=== PATIENT | female | born 1980 | race African-American/Black ===

== ENCOUNTER 2017-03-02 18:41 | Emergency (ER) | payer MEDICAID, SELFPAY ==
[2017-03-02 19:21] LABS: Bilirubin Negative (Negative); Blood, Urine Negative (Negative); Glucose, Urine (Dipstick) Negative (Negative); Ketone, Urine Trace mg/dL (Negative); Nitrite Negative (Negative); Protein, Urine (Dipstick) Trace mg/dL (Neg-Trace); Urobilinogen 0.2 mg/dL (0.2-1.0)
[2017-03-02 19:27] LABS: #Basophils 0.1 thou/uL (0.0-0.2); #Lymphocytes 0.6 thou/uL (1.20-3.40); #Monocytes 0.3 thou/uL (0.11-0.59); #Neutrophils 2.5 thou/uL (1.40-6.50); %Basophils 1.7 % (0.0-1.0); %Eosinophils 0.3 % (0.0-10.0); %Lymphocytes 18.4 % (21.0-51.0); %Monocytes 7.7 % (0.0-10.0); Hematocrit 31.4 % (36.0-47.0); Mean Platelet Volume 6.8 fL (7.4-10.4); Red Blood Cell (RBC) Count 3.51 mill/uL (4.20-5.40); White Blood Cell (WBC) Count 3.5 thou/uL (4.8-10.8)
[2017-03-02 19:53] LABS: ALT (SGPT) 19 U/L (8-55); AST (SGOT) 22 U/L (5-34); Alkaline Phosphatase 85 U/L (40-150); Anion Gap 11 mmol/L (10-20); BUN (Urea Nitrogen) 10 mg/dL (7.0-18.7); Bilirubin, Total Less than 0.2 mg/dL (0.2-1.2); Calc. Creatinine Clearance 0 mL/min (70-130); Calcium 9.7 mg/dL (7.8-10.44); Carbon Dioxide 25 mmol/L (22-29); Chloride 108 mmol/L (98-107); Estimated GFR-MDRD Greater than 90; Globulin 4.6 g/dL (2.4-3.5); Lipase 51 U/L (8-78); Protein, Total 8.6 g/dL (6.0-8.3)
== END 2017-03-02 23:06 | disposition home or self-care (01) ==
LOC: ERS 18:41
DX: R19.7 Diarrhea, unspecified (principal); B20 Human immunodeficiency virus [HIV] disease; E10.9 Type 1 diabetes mellitus without complications; J45.909 Unspecified asthma, uncomplicated; F32.9 Major depressive disorder, single episode, unspecified; F17.210 Nicotine dependence, cigarettes, uncomplicated; Z79.899 Other long term (current) drug therapy
CPT/HCPCS: 36415; 36416; 80053; 81003; 81025; 83690; 85025; 99284

== ENCOUNTER 2017-07-17 21:04 | Emergency (ER) | payer MEDICAID, OTHER ==
[2017-07-17 22:33] LABS: #Eosinphils 0.1 thou/uL (0.0-0.7); #Monocytes 0.5 thou/uL (0.11-0.59); #Neutrophils 5.5 thou/uL (1.40-6.50); %Basophils 0.4 % (0.0-1.0); %Eosinophils 1.1 % (0.0-10.0); %Lymphocytes 14.2 % (21.0-51.0); %Monocytes 6.5 % (0.0-10.0); %Neutrophils 77.8 % (42.0-75.0); Hemoglobin 12.4 g/dL (12.0-16.0); Mean Corpuscular HGB CONC 33.5 g/dL (32.0-36.0); Mean Corpuscular Hemoglobin 28.1 pg (27.0-31.0); Mean Platelet Volume 7.3 fL (7.4-10.4); Platelet Count 328 thou/uL (130-400); RBC Distribution Width 14.4 % (11.5-14.5); White Blood Cell (WBC) Count 7.1 thou/uL (4.8-10.8)
[2017-07-17 22:55] LABS: ALT (SGPT) 21 U/L (8-55); AST (SGOT) 23 U/L (5-34); Albumin 4.2 g/dL (3.5-5.0); Alkaline Phosphatase 100 U/L (40-150); Anion Gap 14 mmol/L (10-20); BUN (Urea Nitrogen) 26 mg/dL (7.0-18.7); Bilirubin, Total 0.2 mg/dL (0.2-1.2); Calc. Creatinine Clearance 0 mL/min (70-130); Calcium 9.8 mg/dL (7.8-10.44); Carbon Dioxide 26 mmol/L (22-29); Chloride 92 mmol/L (98-107); Estimated GFR-MDRD 55; Globulin 5.1 g/dL (2.4-3.5); Glucose 432 mg/dL (70-105); Magnesium 2.2 mg/dL (1.6-2.6); Phosphorus 4.1 mg/dL (2.3-4.7); Potassium 3.8 mmol/L (3.5-5.1); Protein, Total 9.3 g/dL (6.0-8.3); Sodium 128 mmol/L (136-145)
[2017-07-17] MEDS ORDERED: Insulin Regular 300 UNITS/3 ML VIAL ONE (23:03)
[2017-07-18] MEDS ORDERED: Acetaminophen 500 MG TAB ONE (01:09)
[2017-07-20 09:10] LABS: Base Excess-Venous 3.3 mmol/L (-30.0-30.0); Bicarbonate (HCO3v) 27.4 mmol/L (1.0-85.0); CO2 Tension (PvCO2) 39.3 mmHg (41.0-51.0); Hemoglobin - Calc 15.4 g/dL (12.0-18.0); O2 Tension (PvO2) 28.6 mmHg (35.0-45.0); Potassium 3.7 mmol/L (3.4-4.7); pH (Venous) 7.452 (7.35-7.45); vO2 Saturation-calc 57.6 % (0.0-100.0)
[2017-07-20 09:11] LABS: Calcium, Ionized 1.02 mmol/L (1.12-1.32); T. Carbon Dioxide 28.6 mmol/L (1.0-85.0)
[2017-07-20 09:12] LABS: Lactate 1.86 mmol/L (0.50-2.20)
== END 2017-07-18 01:25 | disposition home or self-care (01) ==
LOC: ERS 21:04
DX: E10.65 Type 1 diabetes mellitus with hyperglycemia (principal); E86.0 Dehydration; B20 Human immunodeficiency virus [HIV] disease; J45.909 Unspecified asthma, uncomplicated; F32.9 Major depressive disorder, single episode, unspecified; F17.210 Nicotine dependence, cigarettes, uncomplicated; Z79.899 Other long term (current) drug therapy; Z71.6 Tobacco abuse counseling
CPT/HCPCS: 36415; 36416; 80053; 82010; 82330; 82435; 82803; 83605; 83735; 84100; 84132; 84295; 85014; 85025; 96361; 96374; 96376; 99406; J1815

== ENCOUNTER 2018-04-23 11:14 | Emergency (ER) | payer OTHER ==
[2018-04-23] MEDS ORDERED: Clindamycin/D5W 900 mg/50 ml Premix Bag ONE (12:05)
[2018-04-23] MEDS ORDERED: Ondansetron PF 4 MG/2 ML Vial ONE (12:14)
[2018-04-23] MEDS ORDERED: Morphine 2 MG/ML SYRINGE ONE (12:14)
== END 2018-04-23 15:07 | disposition home or self-care (01) ==
LOC: ERS 11:14
DX: L02.31 Cutaneous abscess of buttock (principal); F32.9 Major depressive disorder, single episode, unspecified; E10.9 Type 1 diabetes mellitus without complications; B20 Human immunodeficiency virus [HIV] disease; F17.210 Nicotine dependence, cigarettes, uncomplicated
CPT/HCPCS: 87070; 87077; 87186; 87205; 96361; 96365; 96375; J2270; J2405; J3490

== ENCOUNTER 2018-04-25 22:31 | Inpatient (IN) | payer OTHER ==
[~2018-04-25 22:31] MED LIST: Iopamidol 370 76% 100 ML VIAL ONE
[2018-04-25 23:24] LABS: Base Excess-Venous -1.2 mmol/L (0 (+/- 2.5)); Bicarbonate (HCO3v) 23.9 mmol/L (22.0-29.0); CO2 Tension (PvCO2) 40.7 mmHg (41.0-51.0); Calcium, Ionized 1.43 mmol/L (1.12-1.32); O2 Tension (PvO2) 45.1 mmHg (35.0-45.0); Potassium 3.7 mmol/L (3.4-4.7); T. Carbon Dioxide 25.1 mmol/L (1.0-85.0); pH (Venous) 7.377 (7.35-7.45); vO2 Saturation-calc 79.8 % (94-98)
[2018-04-25 23:26] LABS: Hemoglobin 9.9 g/dL (12.0-16.0); Mean Corpuscular HGB CONC 32.7 g/dL (32.0-36.0); Mean Corpuscular Hemoglobin 27.9 pg (27.0-31.0); Mean Corpuscular Volume 85.4 fL (78.0-98.0); Mean Platelet Volume 7.5 fL (7.4-10.4); Platelet Count 459 thou/uL (130-400); Red Blood Cell (RBC) Count 3.56 mill/uL (4.20-5.40); White Blood Cell (WBC) Count 17.4 thou/uL (4.8-10.8)
--- NOTE | 2018-04-25 23:41 | RAD ---
PORTABLE AP CHEST X-RAY: 04/25/2018 HISTORY: Altered mental status. COMPARISON: 02/02/2016 FINDINGS: The cardiac silhouette and pulmonary vasculature are within normal limits. The lungs remain clear. There has been no interval change when compared to the prior exam. IMPRESSION: No acute cardiopulmonary process. POS: [facility]
[2018-04-25 23:43] LABS: ALT (SGPT) 18 U/L (8-55); AST (SGOT) 15 U/L (5-34); Albumin 2.8 g/dL (3.5-5.0); Alkaline Phosphatase 266 U/L (40-150); Anion Gap 15 mmol/L (10-20); BUN (Urea Nitrogen) 58 mg/dL (7.0-18.7); Bilirubin, Total 0.4 mg/dL (0.2-1.2); Calc. Creatinine Clearance 0 mL/min (70-130); Calcium 11.8 mg/dL (7.8-10.44); Carbon Dioxide 21 mmol/L (22-29); Chloride 91 mmol/L (98-107); Estimated GFR-MDRD 28; Globulin 5.2 g/dL (2.4-3.5); Glucose 473 mg/dL (70-105); Magnesium 3.3 mg/dL (1.6-2.6); Phosphorus 3.5 mg/dL (2.3-4.7); Potassium 3.7 mmol/L (3.5-5.1); Sodium 123 mmol/L (136-145)
[2018-04-26 00:05] LABS: Band 31 % (5-11); MDiff Complete? YES; Metamyelocyte 3 % (0-0); Monocytes 3 % (0-10); Myelocyte 1 % (0-0); Neutrophil 62 % (42-75); PLT Morphology Comment Appears Increased; Target Cells SLIGHT = 2-5 cells (100X) (0-1/hpf)
--- NOTE | 2018-04-26 00:05 | CT ---
CT ABDOMEN AND PELVIS WITH IV CONTRAST: 04/25/2018 HISTORY: Immunocompromised. Altered mental status. Abscess, left gluteal region. COMPARISON: None available. FINDINGS: There is mild atelectasis in the right middle lobe. The lung bases are otherwise clear. Calcifications are seen in the gallbladder, related to cholelithiasis. There is mild bilateral hydronephrosis, which may be attributable to the prominent distention of the urinary bladder. The kidneys otherwise have a normal CT appearance. The liver, spleen, pancreas, bilateral adrenal glands, and abdominal aorta, as well as the uterus, de monstrate a normal CT appearance. There is a 3.1 cm hypodense structure seen in the right adnexal region, which may represent a right o varian cyst. This does demonstrate fluid attenuation. There are mildly prominent and a mild increase in number of inguinal lymph nodes bilaterally, which a re probably reactive in origin. There is subcutaneous emphysema in the medial aspect of the gluteal regions bilaterally, with subcuta neous gas extending to the dorsal aspect of the lower sacrum. The subcutaneous emphysema is adjacent to the gluteal cleft. There is inflammatory stranding and subcutaneous edema present within the med ial gluteal subcutaneous adipose tissue. No definable fluid collection is seen. There is an ill-def ined low density area seen in the right perineal region but, again, no definable fluid collection is seen. No definite osseous destruction is seen in the region of the sacrum. IMPRESSION: 1. Subcutaneous gas in the medial gluteal region, which abuts the dorsal aspect of the lower sacrum. Findings may be related to a gas-forming organism and an infectious process. There is no definable fluid collection seen. There is subcutaneous inflammatory stranding in the adipose layer of each me dial gluteal region, in the region of the subcutaneous gas. 2. Mild bilateral hydronephrosis, which may be attributable to prominent distention of the urinary b ladder. 3. Probable right ovarian cyst. 4. Irregular gas density in the lower pelvis, which is in the region of the rectum and is probably r elated to gas within the rectum, although this cannot be definitely evaluated due to the lack of fat in this region, as well as adjacent structures limiting evaluation. No gastrointestinal contrast is present for further evaluation. 5. Cholelithiasis. 6. No CT evidence of appendicitis. POS: [facility]
[2018-04-26] MEDS ORDERED: Naloxone HCl 2 mg/2 ml Syringe ONE (00:06)
[2018-04-26] MEDS ORDERED: Piperacillin/Tazobactam 4.5 GM VIAL ONE (00:13)
[2018-04-26] MEDS ORDERED: VANCOMYCIN/ RENALLY ADJUST ANTIBIOTICS IVPB PRN (00:27)
[2018-04-26 00:29] LABS: Bilirubin Negative (Negative); Blood, Urine Trace (Negative); Clarity CLOUDY (Clear); Glucose, Urine (Dipstick) >=1000 mg/dL (Negative); Leukocyte Negative (Negative); Nitrite Negative (Negative); Protein, Urine (Dipstick) 30 mg/dL (Neg-Trace); Urobilinogen 0.2 mg/dL (0.2-1.0); pH, Urine 5.5 (5.0-9.0)
[2018-04-26 00:32] LABS: Bacteria/HPF None Seen HPF (None Seen); Pathc Cast-AUWi Flag 2.03 (0-2.49); RBC/HPF 0-3 HPF (0-3); Squamous Epithelial 0-3 HPF (0-3); WBC/HPF 0-3 HPF (0-3)
[2018-04-26 00:33] LABS: Yeast-AUWi Flag 106.2 (0-25.0)
[2018-04-26] MEDS ORDERED: Dextrose 5% in Water 1,000 ML IV PRN (00:34)
[2018-04-26] MEDS ORDERED: Insulin Regular 300 UNITS/3 ML VIAL SC PRN ×2 (00:34)
[2018-04-26] MEDS ORDERED: Acetaminophen/Codeine 30-300mg Tablet PO PRN (00:35)
[2018-04-26 00:42] LABS: Hyaline Casts/LPF 0-3 HYALINE CAST LPF (0-3 Hyaline); Yeast-All Forms None Seen HPF (None Seen)
[2018-04-26 00:43] LABS: Crystals/HPF 2+ AMORPH URATES HPF (Negative)
[2018-04-26] MEDS ORDERED: Insulin Glargine 10 UNITS in Pre-Filled Syringe 1 EACH SC SCH (00:45)
[2018-04-26] MEDS: Sodium Chloride 0.9% 1,000 ML IV SCH ×4 (02:11→21:21)
[2018-04-26] MEDS ORDERED: Prevnar 13-Val Conj/PF 0.5 ML SYRINGE IM ONE (04:00)
[2018-04-26] MEDS: Piperacillin/Tazobactam 2.25 GM in Sodium Chloride 0.9% 100 ML IVPB SCH ×3 (06:12→17:37)
[2018-04-26 07:37] LABS: Hemoglobin 9.1 g/dL (12.0-16.0); Mean Corpuscular HGB CONC 32.4 g/dL (32.0-36.0); Mean Corpuscular Hemoglobin 27.3 pg (27.0-31.0); Mean Corpuscular Volume 84.1 fL (78.0-98.0); Mean Platelet Volume 7.1 fL (7.4-10.4); Platelet Count 388 thou/uL (130-400); RBC Distribution Width 13.8 % (11.5-14.5); Red Blood Cell (RBC) Count 3.33 mill/uL (4.20-5.40); White Blood Cell (WBC) Count 17.4 thou/uL (4.8-10.8)
[2018-04-26 07:45] LABS: Anion Gap 13 mmol/L (10-20); BUN (Urea Nitrogen) 49 mg/dL (7.0-18.7); Calc. Creatinine Clearance 46 mL/min (70-130); Calcium 10.1 mg/dL (7.8-10.44); Carbon Dioxide 17 mmol/L (22-29); Chloride 105 mmol/L (98-107); Estimated GFR-MDRD 51; Glucose 210 mg/dL (70-105); Potassium 3.2 mmol/L (3.5-5.1); Sodium 132 mmol/L (136-145)
[2018-04-26 08:13] LABS: Band 43 % (5-11); Hypochromia SLIGHT = 6-15 cells (100X) (0-5/hpf); Lymphocytes 2 % (21-51); MDiff Complete? YES; Monocytes 9 % (0-10); Myelocyte 1 % (0-0); Neutrophil 45 % (42-75); PLT Morphology Comment Appears Adequate; Polychromasia SLIGHT = 2-3 cells (100X) (0-2/hpf); Target Cells MODERATE= 6-15 cells (100X) (0-1/hpf)
--- NOTE | 2018-04-26 09:40 | HP ---
HISTORY OF PRESENT ILLNESS: Cortney Baez is a 37-year-old black female, HIV positive, followed by Dr. Ocampo in the emergency room two days ago, started on antibiotics for perirectal abscess. She returned to the emergency room early this morning. I was called noting that she had extensive perirectal abscess with gas noted on CAT scan. The patient is admitted to the hospital. When I see her this morning, she has a necrotizing fasciitis perianal. Plan is to emergently drain this in the operating room under anesthesia. The patient has been unable to walk for the last few days because of this process. OBJECTIVE: VITAL SIGNS: 98.6 degrees, 85, 97/58. Sodium 123, potassium 3.7, chloride 91, creatinine 2.33, BUN 58, GFR 48, glucose 473. ALLERGIES: SULFA. SOCIAL HISTORY: Tobacco, less than half a pack a day. Alcohol, socially. MEDICATIONS: 1. Emtricitabine daily. 2. Darunavir daily. 3. Atovaquone b.i.d. 5 mL. 4. Levemir insulin 12 units daily. 5. Insulin regular t.i.d. 6. Prozac 20 mg a day. PAST SURGICAL HISTORY: Noncontributory. PAST MEDICAL HISTORY: HIV, asthma, and tobacco abuse. REVIEW OF SYSTEMS: Noncontributory. PHYSICAL EXAMINATION: VITAL SIGNS: 5 foot, 118 pounds, 22 BMI, temperature 98.6 degrees, pulse 85, blood pressure 97/58. LUNGS: Clear to auscultation. CARDIAC: Regular rate and rhythm without murmur or gallop. ABDOMEN: Soft and nontender. Right perirectal area reveals necrotic skin, blistering, abscess, fluctuance, and extreme tenderness. She can barely move. EXTREMITIES: Unremarkable. ASSESSMENT AND PLAN: 1. Perirectal abscess with advanced infection. Plan, emergent operative intervention. Continue Zosyn and vancomycin. Infectious Disease consult. Expect possible postoperative ICU stay. 2. Acute kidney injury secondary to infectious process. Job ID: [id number]
[2018-04-26] MEDS ORDERED: Bacitracin Zinc Ointment 30 gm TUBE ONE (09:44)
[2018-04-26] MEDS ORDERED: Sodium Chloride 0.9% 20 ML ONE (10:41)
[2018-04-26] MEDS ORDERED: Ondansetron HCl/PF 4 MG/2 ML Vial IVP PRN (11:07)
[2018-04-26] MEDS ORDERED: traMADol HCl 50 MG TAB PO PRN (11:34)
[2018-04-26] MEDS ORDERED: Acetaminophen 500 MG TAB PO PRN (11:34)
[2018-04-26] MEDS ORDERED: Fentanyl 100 MCG/2 ML VIAL ONE (11:38)
--- NOTE | 2018-04-26 13:17 | HP ---
CHIEF COMPLAINT: Perirectal pain, some altered mental status. HISTORY: This patient is a 37-year-old female accompanied by her mother, who presented via the emergency department. This patient has a history of HIV infection, diabetes, and asthma. She says she is essentially between doctors caring for her diabetes and she was referred to a specialist, but has not found one yet. She also reports her asthma has not been fully well controlled of late, yet she continues to smoke more than half a pack of cigarettes a day. The patient apparently shaved her perineal area and subsequently a week ago started developing some pain in the perirectal area. This has progressed to the point that she has developed severe pain, more chills, and profound weakness to the point that she was actually having some falls and when the patient's family noted some changes in her general mental status, they brought her to the emergency department. REVIEW OF SYSTEMS: She has had a very poor appetite for the last several days. Her mother reports they have been essentially trying to get her to eat something just so she can take her meals. She also thought she was voiding well, but apparently had some urinary retention, relieved by Bass catheter placed in the emergency department. All other systems were reviewed and all pertinent positives and negatives noted in the HPI. PAST MEDICAL HISTORY: Notable for HIV infection. 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 She reports she was treated by Dr. Ocampo. She has asthma, for which she has had an inhaler in the past, but states she has been out of them. She has diabetes, which has been poorly controlled. She also reports that she had endoscopy at one point in the past, which revealed some form of upper GI ulcers. PAST SURGICAL HISTORY: None. FAMILY HISTORY: The patient reported some cancer in her grandmother, hypertension in her mother. She is unsure of her father's situation. SOCIAL HISTORY: The patient is unmarried. She denies drug use. She drinks occasionally on weekends. She smokes over half a pack of cigarettes per day. She is full code and her mother is her surrogate decision maker. ALLERGIES: SULFAMETHOXAZOLE TRIMETHOPRIM. HOME MEDICATIONS: 1. Descovy 200-25 one p.o. daily. 2. Prezcobix 800-150 one p.o. daily. 3. Atovaquone po b.i.d. 4. Levemir FlexPen 12 units subcu daily. 5. Regular insulin 2 units subcu t.i.d. with meals. 6. Prozac 20 mg daily. 7. Stribild one p.o. q.a.m. PHYSICAL EXAMINATION: VITAL SIGNS: Currently, temperature is 98.6, pulse 85, respirations 18, O2 saturation 98% on room air, and blood pressure is 97/58. GENERAL APPEARANCE: Age-appropriate female. She appears to be very thin with some muscle wasting in the temporalis and facial muscles. HEENT: PERRL. No OP lesions. NECK: Supple and symmetric. HEART: Regular rate and rhythm without murmurs, gallops, or rubs. LUNGS: Clear to auscultation bilaterally without significant wheezes or rales present. ABDOMEN: Soft, nontender, and nondistended. EXTREMITIES: Warm and dry with no edema. Fabienne area reveals a large area of induration and extreme tenderness and inflammation over the perirectal cleft, primarily on right buttock area. There is an extremely foul smelling odor emanating from drainage from an area on the right buttock area with significant desquamation of surrounding skin. LABORATORY DATA: Initially white count 17.4, hemoglobin 9.9, platelets 459, she had a 62 neutrophils, 31 bands, 3 monocytes, 3 metamyelocytes, 1 myelocyte. VBG; pH 7.37. Chemistry; sodium is 123, potassium 3.7, chloride 91, CO2 of 21, BUN 58, creatinine is 2.33, glucose 478, calcium was 11.8, lactic acid 1.8, magnesium 3.3, alkaline phosphatase 266. Urinalysis shows significant glucose, trace ketones. Beta-hydroxybutyrate was elevated at 0.84. IMAGING STUDIES: Chest x-ray, clear. CT abdomen and pelvis showed subcutaneous gas in the medial gluteal region, which abuts the dorsal aspect of the lower sacrum. No definable fluid collection, but stranding throughout the gluteal region. There was mild bilateral hydronephrosis with distended bladder. There is irregular gas density in the lower pelvis in the region of the rectum, probably related to gas within the rectum, cholelithiasis as well. IMPRESSION AND PLAN: 1. Large abscess with possible necrotizing fasciitis of the buttock area, likely started from shaving and some folliculitis in the patient with poorly-controlled diabetes and underlying human immunodeficiency virus. The patient appears to be mounting a reasonably good immune response. She is on vancomycin and Zosyn. Surgery has been consulted and will be taking the patient to the operating room soon for debridement of this area. The patient will likely go to [facility] following this procedure. We will consult ID to follow along as well. 2. Pseudohyponatremia. 3. Severely uncontrolled diabetes. The patient's blood sugars have been treated and are improving, the most recent was down to 210. We will continue with the sliding scale insulin as needed. 4. Acute renal failure. The patient's previous creatinine from July 2017 was 1.3, which likely represents some prerenal azotemia, it should improve with fluids. 5. Hypercalcemia, likely related to the dehydration and will likely improve with fluids as well. We will continue to follow. 6. Asthma. We will provide p.r.n. breathing treatments for the patient. She does not appear to be decompensated at the moment, nor does she have significant wheezing. 7. Human immunodeficiency virus. We will continue with her usual medications and can get Dr. Ocampo on board to help with this fairly complicated patient. 8. History of peptic ulcer disease. We will make sure she is on some type of gastrointestinal prophylaxis. Job ID: [id number] [facility]
[2018-04-26] MEDS: Morphine 4 MG/ML VIAL SLOW IVP PRN ×2 (13:36→17:37)
[2018-04-26] MEDS: Pantoprazole 40 MG VIAL IVP SCH ×2 (13:39→21:19)
--- NOTE | 2018-04-26 13:51 | OP ---
DATE OF PROCEDURE: 04/26/2018 PREOPERATIVE DIAGNOSIS: Necrotizing fasciitis, left buttock, secondary to perirectal abscess. POSTOPERATIVE DIAGNOSIS: Necrotizing fasciitis, left buttock, secondary to perirectal abscess. PROCEDURES PERFORMED: Sharp excisional resectional debridement of skin, subcutaneous tissue, fascia, extensive left perirectal abscess, buttocks tracking towards the sacrum and towards the labia, placement of left subclavian vein central line. ANESTHESIA: General. ESTIMATED BLOOD LOSS: 150 mL. DESCRIPTION OF PROCEDURE: The patient was taken to the operating room, where under general anesthesia in the dorsal lithotomy position, her buttocks and perivaginal area were prepared with Betadine and draped in routine fashion. There was a large amount of necrotic tissue with a left perirectal wound measuring approximately 6 cm. This necrotic tissue was dissected free. Necrotic skin and subcutaneous tissue were extensively debrided down to muscle. Debridement carried out towards the labia on the left and towards the sacrum on the left. Devitalized skin was excised and discarded. Culture submitted. This was very foul smelling with necrotic subcutaneous tissue. Wound was pulse irrigated. Gauze dressing applied. Gloves and gowns were changed. Sterile technique was used to place a left subclavian vein central line. Sterile technique Carlos securing the catheter, suture of 3-0 silk removed, each port aspirated off blood, flushed with saline solution. Sterile dressing applied. Job ID: [id number]
--- NOTE | 2018-04-26 16:52 | RAD ---
FRONTAL RADIOGRAPH CHEST: DATE: 04/26/2018. COMPARISON: 04/25/2018. HISTORY: A 37-year-old female status post placement of central line. FINDINGS: Upright imaging demonstrates no pneumothorax. There is mild hazy density in the left base which may signify volume loss or infiltrate. Left-sided vascular catheter noted, distal tip overlying the expe cted location of the right atrium. IMPRESSION: Mild hazy density in left base, nonspecific. No pneumothorax seen. POS: [facility]
[2018-04-26] MEDS: Clindamycin/D5W 600 MG in Premix Bag 1 BAG IVPB SCH (17:37)
[2018-04-26] MEDS ORDERED: PROPOFOL 200 MG/20 ML VIAL ONE (20:58)
[2018-04-26] MEDS ORDERED: Lidocaine 1% PF 5 ML VIAL ONE (20:58)
[2018-04-26] MEDS ORDERED: Ondansetron PF 4 MG/2 ML Vial ONE (20:58)
[2018-04-26] MEDS ORDERED: ePHEDrine/0.9% NaCl/PF SYRINGE 50 mg/10 ml ONE (20:58)
[2018-04-26] MEDS ORDERED: Vancomycin HCl 0.75 GM in Sodium Chloride 0.9% 250 ML 300 ML IVPB SCH (21:00)
[2018-04-26] MEDS ORDERED: Vancomycin HCl 750 MG in Sodium Chloride 0.9% 250 ML 250 ML IVPB SCH (21:00)
[2018-04-26] MEDS: Vancomycin HCl 750 MG in Sodium Chloride 0.9% 250 ML 250 ML IVPB SCH (21:21)
--- NOTE | 2018-04-26 22:02 | CON ---
DATE OF CONSULTATION: 04/26/2018 HISTORY OF PRESENT ILLNESS: Cortney Baez is a 37-year-old female, cachectic, 5 feet 1 inch, BMI 22, 118 pounds, states she was shaving her private areas a week ago when she noticed some pain and discomfort and a boil. Presented with drainage of gluteal. She sees [facility] seth Iqbal . Since admission, she underwent drainage for necrotizing fasciitis. Now in the MICU, reason for consultation. The patient is awake, alert, responsive. Denies any pain or discomfort. Denies any difficulty breathing. She smokes half pack a day. Denies any coughing or wheezing or chest pain. PAST MEDICAL HISTORY: Pertinent for her ongoing tobacco abuse; history of longstanding HIV, 16 years, sees a local Infectious Disease doctor; history of diabetes; depression; history of apparently asthma; previous history of Pneumocystis pneumonia. PAST SURGICAL HISTORY: Previous access, PICC line removed, recent incision and drainage. MEDICATIONS: Her list of medicines to be brought in by the mother, but she says she has been takin. A drug called Descovy 200/25 one tablet a day. 2. Prezcobix 800/150 one tablet a day. 3. Atovaquone 5 mL twice a day. 4. Levemir 12 units once a day. 5. Prozac 20 once a day. 6. Elvitegravir one tablet a day.. Most of her medications are for HIV. ALLERGIES: SHE HAS ALLERGIES TO SULFA. SOCIAL HISTORY: Alcohol, minimal. Tobacco, as noted. REVIEW OF SYSTEMS: Otherwise, 10-point negative. PHYSICAL EXAMINATION: GENERAL: She is awake, alert, responsive, in no distress. She is cachectic. VITAL SIGNS: Saturations are 98 on room air, respiratory rate 20, temperature 98, pulse 93, blood pressure 107/65. CHEST: Decreased breath sounds. No wheezing. CARDIAC: Normal S1 and S2. No gallops. ABDOMEN: Soft without any masses. LABORATORY DATA: White count 17,000, hemoglobin and hematocrit 9 and 28, platelet count 388, big left shift, 45 segs, 43 bands. Creatinine is 1.4. IMPRESSION: 1. Necrotizing fasciitis as outlined by Dr. Mart, who is a general surgeon. 2. Repeat washout tomorrow. 3. Human immunodeficiency virus. 4. Asthma. 5. Mild cachexia. 6. Renal failure. PLAN: She needs to be continued on her home HIV medication. I have added clindamycin for necrotizing fasciitis as an antitoxic and antibiotic. Continue supportive care. We will follow her in the MICU. TIME SPENT: This is a consultation note of 70 minutes with 50% in direct patient care. Job ID: [id number]
[2018-04-26] MEDS ORDERED: Sodium Chloride 0.9% 1,000 ML IV SCH (22:05)
--- NOTE | 2018-04-26 22:21 | CON ---
DATE OF CONSULTATION: REASON FOR CONSULTATION: Perianal abscess. HISTORY OF PRESENT ILLNESS: A 37-year-old known to us from prior visits, who has a history of longstanding HIV infection with erratic adherence to antiretroviral therapy. She also has type 1 diabetes mellitus, and her current regimen includes Prezcobix and Descovy. She also is supposed to be on Mepron prophylaxis for Pneumocystis. She has a recent history of quite refractory Cryptosporidium gastroenteritis, which finally got better once she received very broad antiretroviral therapy with the above-mentioned agents plus subcutaneous Fuzeon. She has not had diarrhea in a while, now has gained some weight, and her last results from the end of February showed a CD4 cell count of 61 and a viral load that was down to 895. The patient developed an inflammatory process in the perianal area and had to be admitted after failure of outpatient treatment. Dr. Mart carried out I and D of the site today. The operative report was reviewed. There was a large amount of necrotic tissue with a left perirectal wound measuring about 6 cm, and this was debrided down to muscle. Debridement carried out towards the labia and towards the sacrum in the left side. She had a subclavian line placed as well during the procedure. Currently, she is a little bit groggy, but she is oriented, has mild pain at the site, but no headaches, visual symptoms, sore throat, odynophagia, or dysphagia. No cough or sputum production. No chest pain. No abdominal pain. No dysuria. She moves all extremities equally. PAST MEDICAL HISTORY: Includes HIV infection with advanced immunosuppression, type 1 diabetes mellitus, and prior episodes of DKA, cachexia, esophagitis, cryptosporidiosis. She also had Cryptococcus neoformans pneumonia about 10 years ago, and more recently had Cryptosporidium parvum gastroenteritis, which has improved. Her adherence to antiretroviral therapy has been erratic. She never had a CD4 cell count higher than 200 and it kind of waxes and wanes according to her adherence to antiretroviral therapy. More recently, her viral load has ranged anywhere from [address] to 1,360,000, and the latest is 895 at the end of February. Her CD4 cell count has ranged from 34 at the end of 2016 up to 100 in August, and then went down to 48, now it is back up to 61. This kind of tracks along the adherence to the treatment, and her type 1 diabetes mellitus has been complicated by DKA in the past. She has had an episode of acute esophagitis in the past as well. MEDICATIONS: Her medication list includes: 1. Mepron. 2. Prezcobix. 3. Descovy. 4. She takes fluconazole intermittently. FAMILY HISTORY: Noncontributory. ALLERGIES: ALLERGY HISTORY, SULFA DRUGS WITH SEVERE SKIN HYPERSENSITIVITY REACTION. SOCIAL HISTORY: She has a history of smoking in the past. She is still working at this time. PHYSICAL EXAMINATION: GENERAL: Skinny younger woman, although appears somnolent after the procedure. VITAL SIGNS: With a temperature of 98.6, blood pressure 107/65, pulse 93, respirations 18 to 20, and O2 saturation 98%. SKIN: Shows the perianal areas of debridement, which the dressing was not removed at this time. She has a subclavian central line. No lymphadenopathy. Ocular movements conjugate. Oral cavity normal. NECK: Supple. LUNGS: Symmetric, clear breath sounds. HEART: S1 and S2, regular rate. No S3 or S4. ABDOMEN: Soft. Not distended or tender. No ascites. No bladder distention. EXTREMITIES: No joint inflammatory activity. NEUROLOGIC: Nonfocal. LABORATORY DATA: White cell count 17.4, hemoglobin 9.1, platelets 388 with 31% bands, now 42% bands. Chemistry with a creatinine of 1.40, which is down from admission when it was 2.3, sodium 132, carbon dioxide 17. Microbiology with pending cultures. Previous recent microbiology from 04/23/2018 with MRSA Klebsiella and E coli. IMAGING STUDIES: Include abdomen and pelvis CT with subcutaneous gas in medial gluteal region abutting the dorsal aspect of lower sacrum. No fluid collection noted. Mild bilateral hydronephrosis due to prominent distention of urinary bladder and irregular gas density in the lower pelvis. ASSESSMENT: 1. Type 1 diabetes. 2. Longstanding human immunodeficiency virus infection with erratic adherence to antiretroviral therapy and a low CD4 cell count with improvement over the past three months as well as improvement in viremia. 3. Inflammatory process, perianal area with abscess, necrotizing infection, likely polymicrobial. DISCUSSION: The patient is currently on Zosyn and clindamycin, to be continued, awaiting for the final results of the microbiology. In view of the MRSA recently identified, we will add vancomycin. I have asked that her mother bring pt's HIV meds to be continued while in the hospital as well as the OI prophylaxis. Job ID: [id number] [facility]
[2018-04-27] MEDS: Clindamycin/D5W 600 MG in Premix Bag 1 BAG IVPB SCH ×4 (00:40→18:46)
[2018-04-27] MEDS: Piperacillin/Tazobactam 2.25 GM in Sodium Chloride 0.9% 100 ML IVPB SCH ×4 (00:41→19:35)
[2018-04-27] MEDS: Sodium Chloride 0.9% 1,000 ML IV SCH ×3 (00:49→19:36)
[2018-04-27] MEDS: Morphine 4 MG/ML VIAL SLOW IVP PRN ×2 (03:23→05:24)
[2018-04-27] MEDS: traMADol HCl 50 MG TAB PO PRN (04:30)
[2018-04-27 07:09] LABS: ALT (SGPT) 13 U/L (8-55); AST (SGOT) 19 U/L (5-34); Albumin 1.9 g/dL (3.5-5.0); Alkaline Phosphatase 285 U/L (40-150); Anion Gap 11 mmol/L (10-20); BUN (Urea Nitrogen) 37 mg/dL (7.0-18.7); Bilirubin, Total 0.6 mg/dL (0.2-1.2); Calc. Creatinine Clearance 58 mL/min (70-130); Calcium 8.9 mg/dL (7.8-10.44); Carbon Dioxide 20 mmol/L (22-29); Chloride 109 mmol/L (98-107); Estimated GFR-MDRD 66; Globulin 3.9 g/dL (2.4-3.5); Glucose 358 mg/dL (70-105); Potassium 3.5 mmol/L (3.5-5.1); Protein, Total 5.8 g/dL (6.0-8.3); Sodium 136 mmol/L (136-145)
[2018-04-27 07:39] LABS: Band 47 % (5-11); Hemoglobin 6.8 g/dL (12.0-16.0); Hypochromia SLIGHT = 6-15 cells (100X) (0-5/hpf); Lymphocytes 3 % (21-51); MDiff Complete? YES; Mean Corpuscular HGB CONC 30.6 g/dL (32.0-36.0); Mean Corpuscular Hemoglobin 26.5 pg (27.0-31.0); Mean Corpuscular Volume 86.5 fL (78.0-98.0); Mean Platelet Volume 7.4 fL (7.4-10.4); Monocytes 6 % (0-10); Myelocyte 5 % (0-0); Neutrophil 38 % (42-75); PLT Morphology Comment Appears Adequate; Platelet Count 351 thou/uL (130-400); Polychromasia SLIGHT = 2-3 cells (100X) (0-2/hpf); Reactive Lymphocytes 1 % (0-10); Red Blood Cell (RBC) Count 2.55 mill/uL (4.20-5.40); Target Cells MODERATE= 6-15 cells (100X) (0-1/hpf); White Blood Cell (WBC) Count 19.3 thou/uL (4.8-10.8)
[2018-04-27 07:42] LABS: Toxic Granulation SLIGHT
--- NOTE | 2018-04-27 10:45 | PRG ---
DATE OF SERVICE: 04/27/2018 SUBJECTIVE: This morning, she is awake, alert, responsive. She denies any pain or discomfort. No shortness of breath. OBJECTIVE: VITAL SIGNS: Saturations are 98% on room air, temperature 98.5, blood pressure 97/54. CHEST: There is no wheezing. No crackles. CARDIAC: Normal S1 and S2. No gallops. ABDOMEN: No masses. LABORATORY DATA: She has 47 bands, 38 neutrophils, white count 19,000. Creatinine 1.2. So far, cultures are negative. ASSESSMENT: 1. Necrotizing fasciitis. 2. Human immunodeficiency virus. 3. Diabetes. Zosyn, vancomycin, clindamycin. Continue present treatment. She may require transfusion if H and H decreases. We will follow while in the MICU. She is to go for washout today. Job ID: [id number]
[2018-04-27] MEDS: Polyethylene Glycol 3350 17 GM Packet PO SCH (11:48)
[2018-04-27] MEDS: Pantoprazole 40 MG VIAL IVP SCH ×2 (11:48→22:30)
[2018-04-27] MEDS ORDERED: Fentanyl 250 MCG/5 ML VIAL ONE (11:52)
[2018-04-27] MEDS ORDERED: Clindamycin/D5W 600 mg/50 ml Premix Bag ONE (12:01)
[2018-04-27] MEDS ORDERED: Midazolam HCl 2 mg/2 ml Vial ONE (12:07)
[2018-04-27] MEDS ORDERED: Bupivacaine/Epinephrine 0.25% 30 ML VIAL ONE (13:33)
[2018-04-27] MEDS ORDERED: Promethazine HCl 25 MG/ML VIAL SLOW IVP PRN (14:02)
[2018-04-27] MEDS ORDERED: Promethazine HCl 25 MG/ML VIAL IM PRN (14:02)
[2018-04-27] MEDS ORDERED: Ondansetron HCl/PF 4 MG/2 ML Vial IVP PRN (14:02)
[2018-04-27] MEDS ORDERED: SUGAMMADEX SODIUM 200 MG/2 ML VIAL ONE (14:11)
[2018-04-27] MEDS ORDERED: Fentanyl 100 MCG/2 ML VIAL ONE (15:42)
[2018-04-27] MEDS ORDERED: PROPOFOL 200 MG/20 ML VIAL ONE (16:50)
[2018-04-27] MEDS ORDERED: PHENYLEPHRINE-NS 100 MCG/ML 10 ML SYRINGE ONE (16:50)
[2018-04-27] MEDS ORDERED: Lidocaine 1% PF 5 ML VIAL ONE (16:50)
[2018-04-27] MEDS ORDERED: Ondansetron PF 4 MG/2 ML Vial ONE (16:50)
--- NOTE | 2018-04-27 19:45 | PDOC.PN ---
- Subjective Encounter Start Date: 04/27/18 Encounter Start Time: 16:00 Seen post-op. Very somnolent still. - Objective Resuscitation Status - Order Detail: 04/26/18 08:43 Resuscitation Status Routine Resuscitation Status: FULL: Full Resuscitation Discussed with: patient Vital Signs & Weight: Vital Signs (12 hours) Temp Pulse Pulse Resp BP BP BP 04/27/18 16:25 97.7 F 85 16 110/75 04/27/18 11:48 82 18 95/56 L 04/27/18 10:55 98.6 F 82 18 95/56 L 04/27/18 08:00 Pulse Ox 04/27/18 16:25 100 04/27/18 11:48 98 04/27/18 10:55 99 04/27/18 08:00 98 Weight Admit Weight 118 lb 4.8 oz Weight 118 lb 4.8 oz I&O: 04/26/18 04/27/18 04/28/18 06:59 06:59 06:59 Intake Total 2140 0 Output Total 2175 Balance -35 0 Result Diagrams: 04/27/18 05:30 04/27/18 05:30 Additional Labs: Accuchecks 04/27/18 04/27/18 04/27/18 10:51 05:43 00:16 POC Glucose 334 H 327 H 377 H 04/26/18 20:20 POC Glucose 355 H Phys Exam - Physical Examination Constitutional: NAD Somnolent. Respiratory: no wheezing, no rales, no rhonchi Cardiovascular: RRR, no significant murmur Gastrointestinal: soft, no distention, positive bowel sounds Musculoskeletal: no edema Dx/Plan (1) Perirectal abscess Code(s): K61.1 - RECTAL ABSCESS Status: Acute Comment: S/p debridement and followup washout again today. Continue Abx per ID recs. Wound care. (2) HIV (human immunodeficiency virus infection) Status: Acute Comment: Continue home anti-retrovirals. (3) Diabetes Code(s): E11.9 - TYPE 2 DIABETES MELLITUS WITHOUT COMPLICATIONS Status: Acute Qualifiers: Diabetes mellitus type: type 2 Plan: Add a dose of Lantus tonight. Add daily morning dose of Lantus. Continue SSI. Comment: Poorly controlled. Exacerbated by infection. (4) Asthma Code(s): J45.909 - UNSPECIFIED ASTHMA, UNCOMPLICATED Status: Acute Comment: Well controlled. PRN bronchodilators. (5) Acute renal failure Status: Acute Comment: Continue IVF. Improving. (6) Hypercalcemia Code(s): E83.52 - HYPERCALCEMIA Status: Resolved (7) Hyponatremia Code(s): E87.1 - HYPO-OSMOLALITY AND HYPONATREMIA Status: Resolved Comment: Pseudohyponatremia secondary to the hyperglycemia. - Plan * Above.
--- NOTE | 2018-04-27 19:47 | PRG ---
DATE OF SERVICE: 04/27/2018 SUBJECTIVE: The patient had a repeat revision of the I and D site by Dr. Mart and the patient is a bit groggy at this time. OBJECTIVE: LUNGS: Clear. HEART: S1 and S2. Regular rate. VITAL SIGNS: Not particularly remarkable. LABORATORY DATA: White cell count 19.3, hemoglobin 6.8, platelets 351 with 38% neutrophils, and 47% bands. Cultures with nonhemolytic strep and enterococcus species. Currently, on Zosyn, clindamycin, and vancomycin. Her mother brought the anti-retroviral therapy and the Mepron to be administered tonight after dinner. ASSESSMENT AND DISCUSSION: 1. Longstanding HIV infection with erratic adherence to anti-retroviral therapy. 2. Type 1 diabetes. 3. Perianal abscess with polymicrobial for eventual transition to oral antimicrobial therapy once there is further improvement in the local wound appearance. Job ID: [id number]
[2018-04-27] MEDS ORDERED: Insulin Glargine 10 UNITS in Pre-Filled Syringe 1 EACH SC SCH (21:00)
[2018-04-27] MEDS: Vancomycin HCl 750 MG in Sodium Chloride 0.9% 250 ML 250 ML IVPB SCH (22:29)
[2018-04-27] MEDS: HumaLOG 300 UNITS/3 ML VIAL SC PRN (22:34)
--- NOTE | 2018-04-27 23:00 | OP ---
DATE OF PROCEDURE: 04/27/2018 PREOPERATIVE DIAGNOSES: Necrotizing fasciitis, horseshoe perirectal abscess, sepsis, acute kidney injury, human immunodeficiency virus positive. POSTOPERATIVE DIAGNOSES: Necrotizing fasciitis, horseshoe perirectal abscess, sepsis, acute kidney injury, human immunodeficiency virus positive. PROCEDURES PERFORMED: Incision and drainage, sharp debridement excisional, skin and subcutaneous tissue, left perirectal buttock wound, and drainage of horseshoe wraparound abscess, right perianal medial buttocks, debridement of skin and subcutaneous tissue sharply excisional, wound care consultation with gauze dressing applied with plans to place a wound VAC later, laparoscopic diverting colostomy. ANESTHESIA: General. BLOOD TRANSFUSED: Preoperative hemoglobin of 6.7, given 1 unit of blood, initiated prior to this operation, second unit given during the operation. Note that during the operation, after more extensive perianal and perirectal abscess process appreciated, it was determined necessary to do a diverting colostomy. We discussed this with the patient's mother, who has previously given consents. I explained this on the phone to her, answered her questions, and she consented verbally with nursing witnesses to a laparoscopic diverting colostomy. I did explain to the patient's mother that this more than likely could be reversed, but if the infectious process destroyed the sphincter mechanism, this possibly may not be reversed, but more likely could. DESCRIPTION OF PROCEDURE: The patient was taken to the operating room where under general anesthesia in the dorsal lithotomy position, the perianal buttock area prepared with Betadine after dressings removed. The patient had a large wound in the left buttock perianal area. This appeared pretty healthy with some necrotic skin. The devitalized skin excised sharply and some subcutaneous tissue excised, resected, and discarded sharply. It was appreciated that there was drainage from the right side of the anus. Right perianal cavity extended up toward the posterior labia on the right and a longitudinal incision was made, and mack this, and debrided sharply the necrotic, subcutaneous tissue, and skin, devitalized. Hemostasis gained with cautery. Both wounds were pulse irrigated with lavage. Wound Care consulted and it was agreed that the wound VAC should not be applied now and gauze dressing applied after good hemostasis and pulse irrigation lavage of 3 L of fluid performed. Gauze dressing applied. At this point, we initiated laparoscopic colostomy. Right periumbilical incision made, pneumoperitoneum to 15 mmHg was obtained with Veress needle, replaced with a 5 port. After the abdomen was prepared with ChloraPrep and draped in routine fashion and new instruments obtained. Left upper quadrant incision made, a 5 port placed, right lateral lower quadrant incision made, and a 12 port placed under laparoscopic visualization. The left lower quadrant incision was made and a plug of skin excised at the planned colostomy site and the 5 port placed. There was some fluid in the pelvis evacuated. This appeared to be clear. Mesentery, sigmoid, and distal sigmoid colon divided with a ligature adjacent to the colon. Mesenteric defect created and the Endo blue load stapler fired dividing the distal sigmoid colon. The lateral peritoneal attachments taken down with the LigaSure, colon mobilized and using a grasper through the left lower quadrant planned colostomy site, the colon was grasped. Good hemostasis was noted. Irrigant and pneumoperitoneum evacuated and all instruments were removed and the colostomy site prepared by enlarging the opening, pulling the colon out. At this point, the laparoscopic wounds were approximated with interrupted subdermal 4-0 Monocryl and the 12 port site approximated in anterior fascia with 0 Vicryl UR needle prior to approximating the skin with subdermal 4-0 Monocryl and [place] glue applied. Colostomy maturation undertaken excising the redundant excess colon for a short segment and then the colostomy maturation were taken with 4 Nichol sutures of 3-0 Vicryl and interrupted simple sutures of 3-0 Vicryl completing colostomy maturation and colostomy bag applied. The patient tolerated the procedure well. Job ID: [id number]
[2018-04-28] MEDS: Clindamycin/D5W 600 MG in Premix Bag 1 BAG IVPB SCH ×5 (00:38→23:08)
[2018-04-28] MEDS: HumaLOG 300 UNITS/3 ML VIAL SC PRN ×4 (01:08→22:05)
[2018-04-28] MEDS: Piperacillin/Tazobactam 2.25 GM in Sodium Chloride 0.9% 100 ML IVPB SCH ×5 (01:11→23:24)
[2018-04-28] MEDS: Sodium Chloride 0.9% 1,000 ML IV SCH ×3 (04:28→18:24)
[2018-04-28 07:14] LABS: Hemoglobin 9.2 g/dL (12.0-16.0); Mean Corpuscular HGB CONC 32.7 g/dL (32.0-36.0); Mean Corpuscular Hemoglobin 28.1 pg (27.0-31.0); Mean Corpuscular Volume 86.2 fL (78.0-98.0); Mean Platelet Volume 7.9 fL (7.4-10.4); Platelet Count 269 thou/uL (130-400); RBC Distribution Width 13.9 % (11.5-14.5); Red Blood Cell (RBC) Count 3.26 mill/uL (4.20-5.40); White Blood Cell (WBC) Count 19.3 thou/uL (4.8-10.8)
[2018-04-28 07:32] LABS: ALT (SGPT) 17 U/L (8-55); AST (SGOT) 30 U/L (5-34); Albumin 1.9 g/dL (3.5-5.0); Alkaline Phosphatase 338 U/L (40-150); Anion Gap 13 mmol/L (10-20); BUN (Urea Nitrogen) 39 mg/dL (7.0-18.7); Bilirubin, Total 0.9 mg/dL (0.2-1.2); Calc. Creatinine Clearance 50 mL/min (70-130); Calcium 8.2 mg/dL (7.8-10.44); Carbon Dioxide 17 mmol/L (22-29); Chloride 114 mmol/L (98-107); Estimated GFR-MDRD 56; Globulin 3.9 g/dL (2.4-3.5); Glucose 375 mg/dL (70-105); Potassium 3.6 mmol/L (3.5-5.1); Protein, Total 5.8 g/dL (6.0-8.3); Sodium 140 mmol/L (136-145)
[2018-04-28 07:43] LABS: Band 43 % (5-11); Eosinophils 1 % (0-10); Lymphocytes 4 % (21-51); MDiff Complete? YES; Monocytes 3 % (0-10); Myelocyte 4 % (0-0); Neutrophil 45 % (42-75); PLT Morphology Comment Appears Adequate; Polychromasia MODERATE = 3-4 cells (100X) (0-2/hpf); Target Cells SLIGHT = 2-5 cells (100X) (0-1/hpf)
[2018-04-28] MEDS ORDERED: Insulin Glargine 20 UNITS in Pre-Filled Syringe 1 EACH SC SCH (09:00)
[2018-04-28] MEDS: Vancomycin HCl 750 MG in Sodium Chloride 0.9% 250 ML 250 ML IVPB SCH ×2 (10:29→22:02)
[2018-04-28] MEDS: traMADol HCl 50 MG TAB PO PRN ×2 (10:33→23:06)
[2018-04-28] MEDS: Multivit, Therapeutic 1 TAB PO SCH (10:33)
[2018-04-28] MEDS: Ascorbic Acid 500 mg Chewable Tablet PO SCH (10:33)
[2018-04-28] MEDS: Zinc Sulfate 220 MG CAP PO SCH (10:33)
[2018-04-28] MEDS: Insulin Glargine 20 UNITS in Pre-Filled Syringe 1 EACH SC SCH ×2 (10:34→22:03)
[2018-04-28] MEDS: Pantoprazole 40 MG VIAL IVP SCH ×2 (10:34→22:03)
[2018-04-28] MEDS: Polyethylene Glycol 3350 17 GM Packet PO SCH (10:35)
--- NOTE | 2018-04-28 11:26 | PDOC.PN ---
- Subjective Encounter Start Date: 04/28/18 Encounter Start Time: 10:40 Subjective: c/o pain, no nausea -: is not amb much -: family at bedside - Objective Resuscitation Status - Order Detail: 04/26/18 08:43 Resuscitation Status Routine Resuscitation Status: FULL: Full Resuscitation Discussed with: patient RANDA Reviewed: Yes Vital Signs & Weight: Vital Signs (12 hours) Temp Pulse Resp BP Pulse Ox 04/28/18 08:00 98.6 F 81 14 104/64 99 04/28/18 03:41 97.5 F L 81 18 96/59 L 99 04/27/18 23:55 97.5 F L 83 20 94/53 L 100 Weight Admit Weight 118 lb 4.8 oz Weight 118 lb 4.8 oz I&O: 04/27/18 04/28/18 04/29/18 06:59 06:59 06:59 Intake Total 2140 2290 Output Total 2175 1025 Balance -35 1265 Result Diagrams: 04/28/18 Unknown 04/28/18 Unknown Additional Labs: Accuchecks 04/28/18 04/28/18 04/28/18 09:15 05:10 00:37 POC Glucose 305 H 362 H 473 H 04/27/18 20:37 POC Glucose 448 H Phys Exam - Physical Examination HEENT: PERRLA, moist MMs Neck: no JVD, supple Respiratory: no wheezing, no rales Cardiovascular: RRR, no significant murmur Gastrointestinal: soft, non-tender, positive bowel sounds colostomy has stool in it Musculoskeletal: pulses present, edema present Neurological: non-focal, moves all 4 limbs Dx/Plan (1) Perirectal abscess Code(s): K61.1 - RECTAL ABSCESS Status: Acute Comment: S/p debridement and followup washout again today. Continue Abx per ID recs. Wound care. (2) SELENA (acute kidney injury) Code(s): N17.9 - ACUTE KIDNEY FAILURE, UNSPECIFIED Status: Acute (3) Asthma Code(s): J45.909 - UNSPECIFIED ASTHMA, UNCOMPLICATED Status: Chronic Qualifiers: Asthma severity: mild Asthma persistence: intermittent Asthma complication type: uncomplicated Qualified Code(s): J45.20 - Mild intermittent asthma, uncomplicated Comment: Well controlled. PRN bronchodilators. 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 Exacerbated by infection. (5) HIV (human immunodeficiency virus infection) Status: Chronic Comment: Continue home anti-retrovirals. - Plan is on vanc, clinda and zosyn -: change lantus to bid, dc iv fluids if tolerating oral diet -: needs to amb in hallway q3h when awake -: wound care -: renal function is stabilizing, albumin is 1.9 due to chronic illness * . Review of Systems - Medications/Allergies Allergies/Adverse Reactions: Allergies Allergy/AdvReac Type Severity Reaction Status Date / Time sulfamethoxazole Allergy Nausea Verified 05/03/13 15:27 [From Bactrim] trimethoprim [From Bactrim] Allergy Nausea Verified 05/03/13 15:27 Medications: Current Medications Ascorbic Acid (Vitamin C) 1,000 mg PO DAILY [facility] Last Admin: 04/28/18 10:33 Dose: 1,000 mg Dextrose/Water (Dextrose 50%) 25 gm SLOW IVP PRN PRN PRN Reason: Hypoglycemia Glucagon (Glucagon) 1 mg IM PRN PRN PRN Reason: Hypoglycemia Piperacillin Sod/Tazobactam (Sod 2.25 gm/ Sodium Chloride) 100 mls @ 200 mls/ hr IVPB Q6HR [facility] Last Admin: 04/28/18 06:08 Dose: 100 mls Dextrose/Water (D5w) 1,000 mls @ 0 mls/hr IV .Q0M PRN PRN Reason: Hypoglycemia Sodium Chloride (Normal Saline 0.9%) 1,000 mls @ 150 mls/hr IV .Q6H40M [facility] Last Admin: 04/28/18 04:28 Dose: 1,000 mls Clindamycin Phosphate/Dextrose (600 mg/ Device) 50 mls @ 100 mls/hr IVPB Q6HR [facility] Last Admin: 04/28/18 06:08 Dose: 50 mls Vancomycin HCl 750 mg/ Sodium (Chloride) 250 mls @ 250 mls/hr IVPB Q12HR [facility] Last Admin: 04/28/18 10:29 Dose: 250 mls Insulin Glargine 20 units/ (Miscellaneous Medication) 0.2 mls @ 0 mls/hr SC BID [facility] Last Admin: 04/28/18 10:34 Dose: 0.2 mls Insulin Human Lispro (Humalog) 0 units SC .AGGRESSIVE SLIDING PRN PRN Reason: Aggressive Correctional Scale Last Admin: 04/28/18 06:08 Dose: 13 unit Miscellaneous Medication (Pharmacy To Dose) 1 each IVPB PRN PRN PRN Reason: Pharmacy to dose Morphine Sulfate (Morphine) 4 mg SLOW IVP Q2H PRN PRN Reason: Pain Last Admin: 04/27/18 05:24 Dose: 4 mg Multivitamins (Theragran) 1 tab PO DAILY [facility] Last Admin: 04/28/18 10:33 Dose: 1 tab Pantoprazole Sodium (Protonix) 40 mg IVP Q12HR [facility] Last Admin: 04/28/18 10:34 Dose: 40 mg Polyethylene Glycol (Miralax) 17 gm PO DAILY [facility] Last Admin: 04/28/18 10:35 Dose: Not Given Sodium Chloride (Flush - Normal Saline) 10 ml IVF Q12HR [facility] Last Admin: 04/28/18 10:35 Dose: 10 ml Sodium Chloride (Flush - Normal Saline) 10 ml IVF PRN PRN PRN Reason: Saline Flush Tramadol HCl (Ultram) 50 mg PO Q6H PRN PRN Reason: Mild-Moderate Pain (1-5) Tramadol HCl (Ultram) 100 mg PO Q6H PRN PRN Reason: Moderate to Severe Pain (6-10) Last Admin: 04/28/18 10:33 Dose: 100 mg Zinc Sulfate (Zinc Sulfate) 220 mg PO DAILY [facility] Last Admin: 04/28/18 10:33 Dose: 220 mg
--- NOTE | 2018-04-28 15:11 | PQF ---
CLINICAL DOCUMENTATION IMPROVEMENT CLARIFICATION FORM: ICD-10 Updated PLEASE DO AN ADDENDUM TO THE PROGRESS NOTE WITH ANY DOCUMENTATION UPDATES OR ADDITIONS AND CARRY THROUGH TO DC SUMMARY. THANK YOU. DATE: 04/28/18 ATTN: DR. ISAAC Please exercise your independent, professional judgment in responding to the clarification form. Clinical indicators are provided on the bottom of this form for your review Please check appropriate box(es): [ x ] Sepsis due to: (Pna, UTI, gangrenous gall bladder, etc.) __perirectal abscess Due to: [ ] Device (please specify) [ ] Implant [ ] Graft [ ] Infusion [ ] SIRS due to non-infectious process (please specify etiology) [ ] with organ dysfunction [ ] without organ dysfunction [ ] Severe sepsis with acute organ dysfunction of: (Examples: respiratory failure, encephalopathy, acute kidney failure, other) [ ] Septic Shock [ ] Localized infection without sepsis [ ] Other diagnosis [ ] Unable to determine In addition, please specify: Present on Admission (POA): [ x ] Yes [ ] No [ ] Unable to determine For continuity of documentation, please document condition throughout progress notes and discharge summary. Thank You. 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 All Rights Reserved JUSTICE [email or web address] Office: [phone] DIANDRA
[2018-04-29] MEDS: Sodium Chloride 0.9% 1,000 ML IV SCH (05:23)
[2018-04-29] MEDS: Piperacillin/Tazobactam 2.25 GM in Sodium Chloride 0.9% 100 ML IVPB SCH ×2 (05:25→13:29)
[2018-04-29] MEDS: Clindamycin/D5W 600 MG in Premix Bag 1 BAG IVPB SCH ×2 (06:04→13:29)
[2018-04-29 06:51] LABS: Anion Gap 10 mmol/L (10-20); BUN (Urea Nitrogen) 30 mg/dL (7.0-18.7); Calc. Creatinine Clearance 59 mL/min (70-130); Calcium 7.9 mg/dL (7.8-10.44); Carbon Dioxide 17 mmol/L (22-29); Chloride 113 mmol/L (98-107); Estimated GFR-MDRD 68; Glucose 78 mg/dL (70-105); Sodium 137 mmol/L (136-145)
[2018-04-29 06:54] LABS: Potassium 2.9 mmol/L (3.5-5.1)
[2018-04-29] MEDS ORDERED: Sodium Chloride 0.9% 1,000 ML IV SCH (08:15)
[2018-04-29] MEDS: Morphine 4 MG/ML VIAL SLOW IVP PRN (08:21)
[2018-04-29] MEDS: Pantoprazole 40 MG VIAL IVP SCH ×2 (08:23→21:17)
[2018-04-29] MEDS: Ascorbic Acid 500 mg Chewable Tablet PO SCH (08:29)
[2018-04-29] MEDS: Multivit, Therapeutic 1 TAB PO SCH (08:29)
[2018-04-29] MEDS: Zinc Sulfate 220 MG CAP PO SCH (08:30)
[2018-04-29] MEDS: Polyethylene Glycol 3350 17 GM Packet PO SCH (08:30)
[2018-04-29 09:00] LABS: Vancomycin, Trough 24.9 ug/mL
[2018-04-29] MEDS: Potassium Chloride 20 MEQ in Premix Bag 1 BAG IVPB SCH ×2 (09:16→11:00)
[2018-04-29] MEDS: Vancomycin HCl 750 MG in Sodium Chloride 0.9% 250 ML 250 ML IVPB SCH (09:28)
[2018-04-29] MEDS ORDERED: PHENYLEPHRINE-NS 100 MCG/ML 10 ML SYRINGE ONE (09:36)
[2018-04-29] MEDS ORDERED: Lidocaine 1% PF 5 ML VIAL ONE (09:36)
[2018-04-29] MEDS ORDERED: PROPOFOL 200 MG/20 ML VIAL ONE (09:36)
[2018-04-29] MEDS: Insulin Glargine 20 UNITS in Pre-Filled Syringe 1 EACH SC SCH (09:51)
--- NOTE | 2018-04-29 11:09 | PDOC.PN ---
- Subjective Encounter Start Date: 04/29/18 Encounter Start Time: 10:45 Subjective: is npo for debridement today -: has pain at her ulcer site - Objective Resuscitation Status - Order Detail: 04/26/18 08:43 Resuscitation Status Routine Resuscitation Status: FULL: Full Resuscitation Discussed with: patient RANDA Reviewed: Yes Vital Signs & Weight: Vital Signs (12 hours) Temp Pulse Resp BP Pulse Ox 04/29/18 08:00 100.3 F H 85 14 93/56 L 92 L 04/29/18 04:01 99.1 F 87 18 100/64 95 04/29/18 00:16 99.4 F 85 18 100/64 96 Weight Admit Weight 118 lb 4.8 oz Weight 118 lb 4.8 oz I&O: 04/28/18 04/29/18 04/30/18 06:59 06:59 06:59 Intake Total 2290 120 2040 Output Total 1025 950 490 Balance 1265 -830 1550 Result Diagrams: 04/28/18 Unknown 04/29/18 05:15 Additional Labs: Accuchecks 04/29/18 04/29/18 04/29/18 09:29 05:06 01:23 POC Glucose 66 L 90 158 H 04/28/18 04/28/18 20:50 13:59 POC Glucose 250 H 382 H Phys Exam - Physical Examination HEENT: PERRLA, moist MMs Neck: no JVD, supple Respiratory: no wheezing, no rales Cardiovascular: RRR, no significant murmur Gastrointestinal: soft, positive bowel sounds abd wall edema++ Musculoskeletal: pulses present, edema present Neurological: non-focal, moves all 4 limbs Dx/Plan (1) Perirectal abscess Code(s): K61.1 - RECTAL ABSCESS Status: Acute Comment: S/p debridement. Continue Abx per ID recs. Wound care. (2) SELENA (acute kidney injury) Code(s): N17.9 - ACUTE KIDNEY FAILURE, UNSPECIFIED Status: Acute Comment: resolving (3) Asthma Code(s): J45.909 - UNSPECIFIED ASTHMA, UNCOMPLICATED Status: Chronic Qualifiers: Asthma severity: mild Asthma persistence: intermittent Asthma complication type: uncomplicated Qualified Code(s): J45.20 - Mild intermittent asthma, uncomplicated Comment: Well controlled. PRN bronchodilators. (4) Diabetes Code(s): E11.9 - TYPE 2 DIABETES MELLITUS WITHOUT COMPLICATIONS Status: Chronic Qualifiers: Diabetes mellitus type: type 2 Diabetes mellitus long-term insulin use: with long-term use Diabetes mellitus complication status: with unspecified complications Qualified Code(s): E11.8 - Type 2 diabetes mellitus with unspecified complications; Z79.4 - intermediate (current) use of insulin Comment: labile (5) HIV (human immunodeficiency virus infection) Status: Chronic Comment: Continue home anti-retrovirals. (6) Sepsis Code(s): A41.9 - SEPSIS, UNSPECIFIED ORGANISM Status: Acute Qualifiers: Sepsis type: Streptococcus, unspecified Qualified Code(s): A40.9 - Streptococcal sepsis, unspecified; A40 - Streptococcal sepsis (7) Anasarca Code(s): R60.1 - GENERALIZED EDEMA Status: Acute (8) Metabolic acidosis Code(s): E87.2 - ACIDOSIS Status: Acute (9) Hypokalemia Code(s): E87.6 - HYPOKALEMIA Status: Acute (10) Physical deconditioning Code(s): R53.81 - OTHER MALAISE Status: Acute - Plan is on clinda, zosyn and vanc, may dc zosyn or clinda if ok with -: dm is labile, is npo for repeat debridement today -: is slowly building up fluid with anasarca, low alb and deconditioning -: PT to mobilize as tolerated, will need placement -: replace iv potassium, change iv fluids to D5NS until she is npo * . Review of Systems - Medications/Allergies Allergies/Adverse Reactions: Allergies Allergy/AdvReac Type Severity Reaction Status Date / Time sulfamethoxazole Allergy Nausea Verified 05/03/13 15:27 [From Bactrim] trimethoprim [From Bactrim] Allergy Nausea Verified 05/03/13 15:27 Medications: Current Medications Ascorbic Acid (Vitamin C) 1,000 mg PO DAILY [facility] Last Admin: 04/29/18 08:29 Dose: Not Given Dextrose/Water (Dextrose 50%) 25 gm SLOW IVP PRN PRN PRN Reason: Hypoglycemia Glucagon (Glucagon) 1 mg IM PRN PRN PRN Reason: Hypoglycemia Piperacillin Sod/Tazobactam (Sod 2.25 gm/ Sodium Chloride) 100 mls @ 200 mls/ hr IVPB Q6HR [facility] Last Admin: 04/29/18 05:25 Dose: 100 mls Dextrose/Water (D5w) 1,000 mls @ 0 mls/hr IV .Q0M PRN PRN Reason: Hypoglycemia Clindamycin Phosphate/Dextrose (600 mg/ Device) 50 mls @ 100 mls/hr IVPB Q6HR [facility] Last Admin: 04/29/18 06:04 Dose: 50 mls Potassium Chloride 20 meq/ (Device) 100 mls @ 50 mls/hr IVPB Q2HR [facility] Stop: 04/29/18 11:59 Last Admin: 04/29/18 09:16 Dose: 100 mls Vancomycin HCl 500 mg/ Sodium (Chloride) 100 mls @ 100 mls/hr IVPB 0900,2100 [facility] Dextrose/Sodium Chloride (D5 0.9% Ns) 1,000 mls @ 75 mls/hr IV .[id number] [facility] Insulin Glargine 20 units/ (Miscellaneous Medication) 0.2 mls @ 0 mls/hr SC QAM [facility] Insulin Human Lispro (Humalog) 0 units SC .AGGRESSIVE SLIDING PRN PRN Reason: Aggressive Correctional Scale Last Admin: 04/28/18 22:05 Dose: 6 unit Miscellaneous Medication (Pharmacy To Dose) 1 each IVPB PRN PRN PRN Reason: Pharmacy to dose Morphine Sulfate (Morphine) 4 mg SLOW IVP Q2H PRN PRN Reason: Pain Last Admin: 04/29/18 08:21 Dose: 4 mg Multivitamins (Theragran) 1 tab PO DAILY [facility] Last Admin: 04/29/18 08:29 Dose: Not Given Pantoprazole Sodium (Protonix) 40 mg IVP Q12HR [facility] Last Admin: 04/29/18 08:23 Dose: 40 mg Polyethylene Glycol (Miralax) 17 gm PO DAILY [facility] Last Admin: 04/29/18 08:30 Dose: Not Given Sodium Chloride (Flush - Normal Saline) 10 ml IVF Q12HR [facility] Last Admin: 04/29/18 08:30 Dose: 10 ml Sodium Chloride (Flush - Normal Saline) 10 ml IVF PRN PRN PRN Reason: Saline Flush Tramadol HCl (Ultram) 50 mg PO Q6H PRN PRN Reason: Mild-Moderate Pain (1-5) Tramadol HCl (Ultram) 100 mg PO Q6H PRN PRN Reason: Moderate to Severe Pain (6-10) Last Admin: 04/28/18 23:06 Dose: 100 mg Zinc Sulfate (Zinc Sulfate) 220 mg PO DAILY [facility] Last Admin: 04/29/18 08:30 Dose: Not Given
[2018-04-29] MEDS: Dextrose 5 % And 0.9 % NaCl 1,000 ML IV SCH (11:11)
[2018-04-29] MEDS ORDERED: Fentanyl 100 MCG/2 ML VIAL ONE ×3 (12:19→16:01)
[2018-04-29] MEDS ORDERED: Clindamycin/D5W 600 mg/50 ml Premix Bag ONE (12:44)
[2018-04-29] MEDS ORDERED: Potassium Chloride 20 MEQ/100 ML PREMIX BAG ONE (12:44)
[2018-04-29] MEDS ORDERED: Insulin Regular 300 UNITS/3 ML VIAL ONE (12:50)
[2018-04-29] MEDS ORDERED: Dextrose 50% Abboject 50 ML SYRINGE ONE (12:50)
[2018-04-29] MEDS ORDERED: Piperacillin/Tazobactam 3.375 GM VIAL ONE (12:58)
[2018-04-29] MEDS ORDERED: Sodium Bicarbonate 2.5 MEQ/5 ML VIAL ONE (13:48)
[2018-04-29] MEDS ORDERED: Sodium Bicarb 50 MEQ/50 ML Abboject 8.4% SYRINGE ONE ×2 (13:49)
--- NOTE | 2018-04-29 14:33 | PRG ---
DATE OF SERVICE: 04/28/2018 SUBJECTIVE: Ms. Baez is a little bit more alert, but still groggy. She is oriented. She denies any headaches. No respiratory symptoms. No abdominal pain. She has pain in the perineal area. Has a Bass catheter in place. OBJECTIVE: VITAL SIGNS: T-max of 98.6, pulse 85. GENERAL: Somewhat drowsy, but arousable. Follows commands. HEENT: Ocular movements conjugate. Oral cavity, normal. LUNGS: Symmetric, clear breath sounds. CARDIAC: S1 and S2, regular rate without murmurs. ABDOMEN: Not distended. The wound was not inspected at this time. We do not have any wound care notes yet. After the second procedure, the patient had a colostomy placed. LABORATORY DATA: Current labs showed a white cell count 19.3, hemoglobin 9.2, platelets 269 with 45% neutrophils, 42% bands. Sodium 137, creatinine 1.09. Microbiology with E faecalis and Streptococcus anginosus. Cryptococcus antigen final negative in serum. ASSESSMENT AND DISCUSSION: 1. Longstanding human immunodeficiency virus infection with erratic adherence to antiretroviral therapy. Her last CD4 cell count was 61 in February. 2. Necrotizing infection, perineal area and perianal area, status post surgical debridement and now diversion. 3. Persistence of inflammatory process with neutrophilia and bandemia. We will discontinue clindamycin. Switch her to meropenem. Continue vancomycin since she did have methicillin-resistant Staphylococcus aureus retrieved from the initial sample obtained on the . Wound management. Continue antiretroviral therapy and pneumocystis jiroveci prophylaxis with Mepron. Job ID: [id number] [facility]
[2018-04-29] MEDS ORDERED: Albumin 5% 500 ML ONE (14:43)
[2018-04-29] MEDS ORDERED: Rocuronium Bromide 50 MG/5 ML VIAL ONE (14:44)
[2018-04-29] MEDS ORDERED: SUGAMMADEX SODIUM 500 MG/5 ML VIAL ONE (15:10)
[2018-04-29] MEDS ORDERED: Promethazine HCl 25 MG/ML VIAL SLOW IVP PRN (15:23)
[2018-04-29] MEDS ORDERED: Ondansetron HCl/PF 4 MG/2 ML Vial IVP PRN (15:23)
[2018-04-29] MEDS ORDERED: Promethazine HCl 25 MG/ML VIAL IM PRN ×2 (15:23→15:24)
[2018-04-29] MEDS ORDERED: fentaNYL Citrate/PF 2,000 MCG in Sodium Chloride 0.9% 60 ML IV PRN (15:24)
[2018-04-29] MEDS ORDERED: diphenhydrAMINE 50 MG/ML VIAL IVP PRN (15:24)
[2018-04-29] MEDS ORDERED: Ondansetron PF 4 MG/2 ML Vial IVP PRN (15:24)
[2018-04-29] MEDS ORDERED: diphenhydrAMINE 25 MG CAP PO PRN (15:24)
[2018-04-29] MEDS ORDERED: Naloxone HCl 0.4 mg/ml Vial IV PRN (15:24)
[2018-04-29] MEDS ORDERED: Zolpidem Tartrate 5 MG TAB PO PRN (15:24)
[2018-04-29] MEDS ORDERED: diphenhydrAMINE 50 MG/ML VIAL IM PRN (15:24)
[2018-04-29] MEDS ORDERED: Communication Order-Pharmacy FS SCH (15:30)
[2018-04-29] MEDS: MEROPENEM 1 GM/50 ML 1 GM in Premix Bag 1 BAG IVPB SCH ×2 (17:14→21:58)
[2018-04-29] MEDS ORDERED: Calcium Acetate 667 MG CAP ONE (17:41)
[2018-04-29] MEDS: Vancomycin HCl 500 MG in Sodium Chloride 0.9% 100 ML IVPB SCH (21:55)
[2018-04-30] MEDS: Dextrose 5 % And 0.9 % NaCl 1,000 ML IV SCH (02:37)
[2018-04-30 05:24] LABS: Anion Gap 13 mmol/L (10-20); BUN (Urea Nitrogen) 28 mg/dL (7.0-18.7); Calc. Creatinine Clearance 63 mL/min (70-130); Calcium 7.8 mg/dL (7.8-10.44); Carbon Dioxide 17 mmol/L (22-29); Chloride 111 mmol/L (98-107); Estimated GFR-MDRD 73; Glucose 134 mg/dL (70-105); Potassium 3.8 mmol/L (3.5-5.1); Sodium 137 mmol/L (136-145)
[2018-04-30] MEDS: MEROPENEM 1 GM/50 ML 1 GM in Premix Bag 1 BAG IVPB SCH ×3 (06:10→23:12)
[2018-04-30] MEDS: Zinc Sulfate 220 MG CAP PO SCH (08:29)
[2018-04-30] MEDS: Polyethylene Glycol 3350 17 GM Packet PO SCH (08:29)
[2018-04-30] MEDS: Ascorbic Acid 500 mg Chewable Tablet PO SCH (08:29)
[2018-04-30] MEDS: Pantoprazole 40 MG VIAL IVP SCH ×2 (08:29→20:43)
[2018-04-30] MEDS: Vancomycin HCl 500 MG in Sodium Chloride 0.9% 100 ML IVPB SCH ×2 (08:31→21:21)
[2018-04-30] MEDS: Multivit, Therapeutic 1 TAB PO SCH (08:32)
[2018-04-30] MEDS: Insulin Glargine 20 UNITS in Pre-Filled Syringe 1 EACH SC SCH (08:44)
[2018-04-30 09:26] LABS: Actual Bicarbonate (HCO3a) 17.1 mEq/L (22-28); Base Excess (BEa) -7.7 mEq/L (-2.0 to +3.0); Calcium, Ionized 1.04 mmol/L (1.12-1.30); Hemoglobin (Hb) 8.9 g/dL (12.0-16.0); pH, Arterial 7.35 (7.35-7.45)
[2018-04-30 09:32] LABS: O2 Tension (PaO2) 48.7 mmHg (80.0-100.0)
[2018-04-30 09:34] LABS: Puncture Site RBA
[2018-04-30] MEDS ORDERED: Furosemide 40 MG/4 ML VIAL SLOW IVP SCH (11:30)
--- NOTE | 2018-04-30 12:21 | PDOC.PN ---
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 farmworker -: mother, grandmother and aunt in the room - Objective Resuscitation Status - Order Detail: 04/26/18 08:43 Resuscitation Status Routine Resuscitation Status: FULL: Full Resuscitation Discussed with: patient RANDA Reviewed: Yes Vital Signs & Weight: Vital Signs (12 hours) Temp Pulse Resp BP Pulse Ox 04/30/18 10:19 94 L 04/30/18 08:00 93 L 04/30/18 07:47 98.6 F 87 20 120/81 93 L 04/30/18 04:00 98.5 F 85 24 H 108/69 79 L Weight Admit Weight 118 lb 4.8 oz Weight 118 lb 4.8 oz I&O: 04/29/18 04/30/18 05/01/18 06:59 06:59 06:59 Intake Total 120 2810 Output Total 950 1340 Balance -830 1470 Result Diagrams: 04/28/18 Unknown 04/30/18 04:55 Additional Labs: Accuchecks 04/30/18 04/29/18 04/29/18 03:59 23:45 19:33 POC Glucose 141 H 149 H 134 H 04/29/18 04/29/18 04/29/18 14:50 13:43 12:44 POC Glucose 115 H 144 H 65 L Phys Exam - Physical Examination HEENT: PERRLA, moist MMs Neck: no JVD, supple rales++ Cardiovascular: RRR, no significant murmur Gastrointestinal: soft, positive bowel sounds abd wall edema, distention+ Musculoskeletal: pulses present, edema present Neurological: non-focal, moves all 4 limbs Psychiatric: A&O x 3 Dx/Plan (1) Acute respiratory failure with hypoxia Code(s): J96.01 - ACUTE RESPIRATORY FAILURE WITH HYPOXIA Status: Acute (2) Perirectal abscess Code(s): K61.1 - RECTAL ABSCESS Status: Acute Comment: S/p debridement x3. Continue Abx per ID recs. Wound care. (3) SELENA (acute kidney injury) Code(s): N17.9 - ACUTE KIDNEY FAILURE, UNSPECIFIED Status: Acute Comment: resolving (4) Asthma Code(s): J45.909 - UNSPECIFIED ASTHMA, UNCOMPLICATED Status: Chronic Qualifiers: Asthma severity: mild Asthma persistence: intermittent Asthma complication type: uncomplicated Qualified Code(s): J45.20 - Mild intermittent asthma, uncomplicated (5) Diabetes Code(s): E11.9 - TYPE 2 DIABETES MELLITUS WITHOUT COMPLICATIONS Status: Chronic Qualifiers: Diabetes mellitus type: type 2 Diabetes mellitus [facility] insulin use: with long term care social worker use Diabetes mellitus complication status: with unspecified complications Qualified Code(s): E11.8 - Type 2 diabetes mellitus with unspecified complications; Z79.4 - [facility] (current) use of insulin Comment: labile (6) HIV (human immunodeficiency virus infection) Status: Chronic Comment: Continue home anti-retrovirals. (7) Sepsis Code(s): A41.9 - SEPSIS, UNSPECIFIED ORGANISM Status: Acute Qualifiers: Sepsis type: Streptococcus, unspecified Qualified Code(s): A40.9 - Streptococcal sepsis, unspecified; A40 - Streptococcal sepsis (8) Anasarca Code(s): R60.1 - GENERALIZED EDEMA Status: Acute (9) Metabolic acidosis Code(s): E87.2 - ACIDOSIS Status: Acute (10) Hypokalemia Code(s): E87.6 - HYPOKALEMIA Status: Acute (11) Physical deconditioning Code(s): R53.81 - OTHER MALAISE Status: Acute - Plan has developed severe anasarca along with ?ARDS -: lasix q12h, tx to imcu, bipap prn, may need intubation if she gets worse or -: if she doesn't tolerate diuresis -: will d/w business operations specialist for pulm -: d/w patient who is oriented about code status and intubation etc, she wants * . everything done, wants her mother to be POA. continue antibiotics, will hold off on frog or oyster farmworker if her resp rate is <14/min or drowsy. Family aware of guarded prognosis, poor albumin, anasarca, noncompliance with HIV meds prior to admission, immunosuppression etc. D/w Palliative care, aware of above discussion with patient and family. Review of Systems - Medications/Allergies Allergies/Adverse Reactions: Allergies Allergy/AdvReac Type Severity Reaction Status Date / Time sulfamethoxazole Allergy Nausea Verified 05/03/13 15:27 [From Bactrim] trimethoprim [From Bactrim] Allergy Nausea Verified 05/03/13 15:27 Medications: Current Medications Ascorbic Acid (Vitamin C) 1,000 mg PO DAILY [facility] Last Admin: 04/30/18 08:29 Dose: 1,000 mg Dextrose/Water (Dextrose 50%) 25 gm SLOW IVP PRN PRN PRN Reason: Hypoglycemia Diphenhydramine HCl (Benadryl) 25 mg IVP Q3H PRN PRN Reason: Itching Diphenhydramine HCl (Benadryl) 25 mg PO Q3H PRN PRN Reason: Itching Diphenhydramine HCl (Benadryl) 25 mg IM Q3H PRN PRN Reason: Itching Furosemide (Lasix) 40 mg SLOW IVP NOW [facility] Stop: 04/30/18 13:00 Furosemide (Lasix) 40 mg SLOW IVP 0600,1400 [facility] Glucagon (Glucagon) 1 mg IM PRN PRN PRN Reason: Hypoglycemia Dextrose/Water (D5w) 1,000 mls @ 0 mls/hr IV .Q0M PRN PRN Reason: Hypoglycemia Vancomycin HCl 500 mg/ Sodium (Chloride) 100 mls @ 100 mls/hr IVPB 0900,2100 [facility] Last Admin: 04/30/18 08:31 Dose: 100 mls Insulin Glargine 20 units/ (Miscellaneous Medication) 0.2 mls @ 0 mls/hr SC QAM [facility] Last Admin: 04/30/18 08:44 Dose: 0.2 mls Meropenem 1 gm/ Device 50 mls @ 100 mls/hr IVPB Q8HR [facility] Last Admin: 04/30/18 06:10 Dose: 50 mls Fentanyl Citrate 2,000 mcg/ (Sodium Chloride) 100 mls @ 0 mls/hr IV INF PRN PRN Reason: Pain Last Admin: 04/29/18 21:14 Dose: 100 mls Insulin Human Lispro (Humalog) 0 units SC .AGGRESSIVE SLIDING PRN PRN Reason: Aggressive Correctional Scale Last Admin: 04/28/18 22:05 Dose: 6 unit Miscellaneous Information (Communication Order-Pharmacy) 1 each FS ONE [facility] Stop: 05/06/18 15:31 Miscellaneous Medication (Pharmacy To Dose) 1 each IVPB PRN PRN PRN Reason: Pharmacy to dose Multivitamins (Theragran) 1 tab PO DAILY [facility] Last Admin: 04/30/18 08:32 Dose: 1 tab Naloxone HCl (Narcan) 0.2 mg IV Q5MIN PRN PRN Reason: Opiate Reversal Ondansetron HCl (Zofran) 4 mg IVP Q6H PRN PRN Reason: Nausea/Vomiting Pantoprazole Sodium (Protonix) 40 mg IVP Q12HR [facility] Last Admin: 04/30/18 08:29 Dose: 40 mg Polyethylene Glycol (Miralax) 17 gm PO DAILY [facility] Last Admin: 04/30/18 08:29 Dose: 17 gm Promethazine HCl (Phenergan) 12.5 mg IM Q4H PRN PRN Reason: Nausea/Vomiting Sodium Chloride (Flush - Normal Saline) 10 ml IVF Q12HR [facility] Last Admin: 04/29/18 21:17 Dose: 10 ml Sodium Chloride (Flush - Normal Saline) 10 ml IVF PRN PRN PRN Reason: Saline Flush Zinc Sulfate (Zinc Sulfate) 220 mg PO DAILY [facility] Last Admin: 04/30/18 08:29 Dose: 220 mg
[2018-04-30] MEDS: Furosemide 40 MG/4 ML VIAL SLOW IVP SCH (13:13)
--- NOTE | 2018-04-30 13:15 | RAD ---
PORTABLE CHEST 1 VIEW: Date: 04/30/18 Time: 1130 hours HISTORY: Congestion, hypoxia. FINDINGS/IMPRESSION: Left-sided central venous catheter remains in place. The heart size is stable. There are diffuse alve olar opacities in the lungs bilaterally. No pneumothoraces or large effusions are seen. Small effusio ns may be present. Pulmonary edema versus pneumonia. POS: [facility]
[2018-04-30] MEDS ORDERED: Propofol 1,000 MG/100 ML VIAL IV ONE (13:16)
[2018-04-30] MEDS ORDERED: Midazolam HCl 2 mg/2 ml Vial ONE ×2 (13:18→13:23)
[2018-04-30] MEDS ORDERED: Morphine 4 MG/ML VIAL ONE (13:23)
[2018-04-30 13:51] LABS: Actual Bicarbonate (HCO3a) 16.1 mEq/L (22-28); Base Excess (BEa) -8.9 mEq/L (-2.0 to +3.0); CO2 Tension 31.5 mmHg (35.0-45.0); Calcium, Ionized 1.08 mmol/L (1.12-1.30); Carboxyhemoglobin (COHb) 1.5 gm% (0.0-3.0); Hemoglobin (Hb) 9.1 g/dL (12.0-16.0); O2 Tension (PaO2) 86.3 mmHg (80.0-100.0); Potassium - ABG Lab 3.44 mmol/L (3.70-5.30); pH, Arterial 7.33 (7.35-7.45)
[2018-04-30 13:52] LABS: Puncture Site RBA
[2018-04-30 13:53] LABS: ALV-art Gradient 302.125 (0-20)
[2018-04-30] MEDS ORDERED: Ventilator Sedation Protocol 1 EACH FS ONE (14:09)
[2018-04-30] MEDS ORDERED: Propofol 1,000 MG/100 ML VIAL IV PRN (14:11)
[2018-04-30] MEDS ORDERED: Fentanyl BOLUS 250 ML IVPB PRN (14:11)
[2018-04-30] MEDS ORDERED: DISCONTINUE PREVIOUS NARCOTIC PAIN MEDICATIONS AND BENZODIAZEPINES FS SCH (14:11)
[2018-04-30] MEDS ORDERED: Propofol BOLUS 1,000 MG/100 ML VIAL IV PRN (14:11)
[2018-04-30] MEDS ORDERED: Fentanyl 100 MCG/2 ML VIAL ONE (15:26)
[2018-04-30] MEDS ORDERED: Rocuronium Bromide 50 MG/5 ML VIAL ONE (15:27)
[2018-04-30] MEDS ORDERED: Midazolam HCl 5 mg/5 ml Vial ONE (15:27)
--- NOTE | 2018-04-30 18:01 | PDOC.OP ---
Operative Note - Operative Note Operative Note: PROCEDURE: Debridement of necrotizing fasciitis of the buttocks and perineum DATE OF PROCEDURE: 04/29/28 SURGEON: Tristan Montgomery M.D. PREOPERATIVE DIAGNOSES: Necrotizing fasciitis of the buttocks and perineum POSTOPERATIVE DIAGNOSIS: Necrotizing fasciitis of the buttocks and perineum HISTORY: Patient is HIV positive with poor compliance to medical treatment. She presented with a buttock abscess which had progressed to necrotizing fasciitis and has undergone multiple debridements by Dr. Mart. She comes back to the operating room today for additional washout and debridement. FINDINGS: Progressive necrotizing fasciitis extending up into the soft tissues of the back and the sacral fascia and along the perirectal and perivaginal tissues to the level of the pelvic levators PROCEDURE IN DETAIL: After informed consent was obtained and appropriate antibiotics continued the patient was taken to the operating room she was placed in the supine position and general anesthesia was administered. She was then placed in lithotomy position and prepped and draped in standard sterile fashion. The wounds were irrigated and examined and a large amount of necrotic tissue found on the patient's right extending up into the perirectal and sima- vaginal areas to the level of the pelvic levators. This was sharply debrided back to viable bleeding fatty tissues. Additional extensions of the necrotic process along the posterior thigh and back toward the sacrum were also debrided. This extended past the level of the coccyx and up to about the mid sacrum on the right. On the left the infectious process was somewhat more superficial in most areas but there was extension of the infection and necrosis along the rectal wall to the level of the pelvic levators. Due to the extension of the necrotizing fasciitis the decision was made to pack the wound with iodoform gauze and bring the patient back to the operating room the following day. The wound was Pulsavac and hemostasis was verified. The wound was then packed with 2 Kerlix and 4 fluffs which were soaked in Betadine, and the wound was covered with APD pads and secured with tape. The patient was extubated and taken to recovery room in stable condition. Estimated loss was minimal. There were no complications. There were no specimens.
--- NOTE | 2018-04-30 18:08 | PDOC.OP ---
Operative Note - Operative Note Operative Note: PROCEDURE: Debridement of necrotizing fasciitis of the buttocks and perineum DATE OF PROCEDURE: 04/30/2018 SURGEON: Tristan Montgomery M.D. PREOPERATIVE DIAGNOSES: Necrotizing fasciitis of the buttocks and perineum POSTOPERATIVE DIAGNOSIS: Necrotizing fasciitis of the buttocks and perineum HISTORY: Patient is HIV positive with poor compliance to medical treatment. She presented with a buttock abscess which had progressed to necrotizing fasciitis and has undergone multiple debridements. She comes back to the operating room today for additional washout and debridement and possible placement of irrigating VAC. FINDINGS: Progressive necrotizing fasciitis extending up into the soft tissues of the back and the sacral fascia and buttocks and along the pelvic levators with some muscle necrosis PROCEDURE IN DETAIL: After informed consent was obtained and appropriate antibiotics continued the patient was taken to the operating room she was placed in the supine position and general anesthesia was administered. She was then placed in lithotomy position and prepped and draped in standard sterile fashion. Local was irrigated and examined and some extension of the infectious process into the pelvic alleviate her muscles was identified on the left. Some of the muscle was necrotic and this was sharply debrided back to viable appearing muscle and most of the fascia was removed. Some of the fatty tissues near the skin were also nonviable and these were sharply debrided. Hemostasis was obtained using Bovie electrocautery and attention turned to the patient's right wound. There was some necrotic tissue posteriorly extending along the thigh and this was sharply debrided back to viable appearing tissues. The remainder of the tissues in the perineal area appeared viable and healthy but the extension of the necrotic process in the space posterior to the sacrum had extended superiorly and was not accessible to debridement in the lithotomy position. The wound care team was called to place the periwound dressings while the patient was in lithotomy for postoperative irrigating VAC placement. The patient was then taken out of lithotomy position and moved to the left lateral decubitus position with appropriate padding and support of the extremities and the posterior portion of the wound reprepped and draped. Some of the skin adjacent to the sacrum was nonviable and this was excised and the excision was extended superiorly to allow complete debridement of the necrotic subcutaneous tissues fat and sacral fascia. The infectious process extended along the buttocks and the nonviable fascia was excised along with any infected-appearing fatty tissue. A large amount of skin posteriorly was nonviable and this was trimmed back to bleeding viable appearing skin bilaterally. Hemostasis is obtained using Bovie electrocautery and the wound care team called to complete placement of the VAC dressing. The patient tolerated the procedure well. Estimated blood loss was minimal. There were no complications. There were no specimens. The patient is scheduled for a planned return to the OR on Thursday, but will be evaluated daily for possible need for earlier examination and debridement.
[2018-04-30] MEDS: Lopinavir/Ritonavir 80 MG/20 MG per ML Oral Solution PER TUBE SCH (20:43)
[2018-04-30] MEDS ORDERED: PROPOFOL 200 MG/20 ML VIAL ONE (21:01)
[2018-04-30] MEDS: HumaLOG 300 UNITS/3 ML VIAL SC PRN (21:18)
[2018-04-30] MEDS: Sodium Chloride 0.9% 1,000 ML IV SCH (21:45)
--- NOTE | 2018-04-30 23:31 | CON ---
DATE OF CONSULTATION: HISTORY OF PRESENT ILLNESS: Ms. Baez is a 37-year-old female who is HIV positive. According to Dr. Ocampo' note, she is intermittently compliant with antiviral therapy. She presented with necrotizing fasciitis of her perirectal area and has had multiple debridements. She was transferred out of the intermediate care unit and then developed respiratory distress today and transferred back to the intensive care unit. I evaluated her and recommended intubation. She could not give an accurate history. PAST MEDICAL HISTORY: Obtained from medical records, it is remarkable for tobacco use, HIV positive for 16 years, diabetes, depression, asthma, and a past history of pneumocystis pneumonia. She also has had a PICC line in the past. MEDICATIONS: Reviewed. FAMILY HISTORY: Noncontributory. SOCIAL HISTORY: Noncontributory. PHYSICAL EXAMINATION: VITAL SIGNS: When she arrived in the ICU, she was tachypneic. She was afebrile. Heart rate was in the 90s, blood pressures in the 120 to 130 range, oximetry was falling on 50% face mask into the 80s. NECK: Exam is unremarkable. LUNGS: Remarkable for rhonchi bilaterally. HEART: Regular rhythm. ABDOMEN: Soft and nontender. She was moaning continuously. She was given 4 mg of morphine prior to the intubation. IMPRESSION: 1. Necrotizing fasciitis that is progressing in spite of multiple debridements. 2. Chest radiograph today showing diffuse infiltrates. A bronchoscopy with lavage to rule out Pneumocystis will be performed. I suspect this is, however, acute respiratory distress syndrome associated with necrotizing fasciitis. 3. She will probably require bilevel ventilation. TIME SPENT: Critical care time 40 minutes excluding procedures. Job ID: [id number] [facility]
[2018-05-01] MEDS: HumaLOG 300 UNITS/3 ML VIAL SC PRN (01:15)
[2018-05-01] MEDS: MEROPENEM 1 GM/50 ML 1 GM in Premix Bag 1 BAG IVPB SCH ×3 (05:14→22:51)
[2018-05-01] MEDS: Furosemide 40 MG/4 ML VIAL SLOW IVP SCH ×2 (05:14→15:20)
[2018-05-01 05:19] LABS: Anion Gap 9 mmol/L (10-20); BUN (Urea Nitrogen) 24 mg/dL (7.0-18.7); Calc. Creatinine Clearance 78 mL/min (70-130); Calcium 7.8 mg/dL (7.8-10.44); Carbon Dioxide 21 mmol/L (22-29); Chloride 111 mmol/L (98-107); Estimated GFR-MDRD Greater than 90; Glucose 123 mg/dL (70-105); Sodium 138 mmol/L (136-145)
[2018-05-01 05:27] LABS: Potassium 2.8 mmol/L (3.5-5.1)
[2018-05-01] MEDS ORDERED: Potassium Phosphate 15 MMOL in Sodium Chloride 0.9% 250 ML 250 ML IV PRN (06:02)
[2018-05-01] MEDS ORDERED: Potassium Chloride 20 MEQ TAB PO PRN (06:02)
[2018-05-01] MEDS ORDERED: CCU ELECTROLYTE REPLACEMENT PROTOCOL FS PRN (06:02)
[2018-05-01] MEDS ORDERED: Potassium Phosphate 12 MMOL in Sodium Chloride 0.9% 250 ML 250 ML IV PRN (06:02)
[2018-05-01] MEDS ORDERED: Magnesium 2 GM/NS 0.9% 100 ML 2 GM in Premix Bag 1 BAG IVPB PRN (06:02)
[2018-05-01] MEDS ORDERED: Magnesium Oxide 400 MG TAB PO PRN ×2 (06:02)
[2018-05-01] MEDS ORDERED: Potassium Chloride 40 MEQ in Sodium Chloride 0.9% 250 ML 250 ML IVPB PRN (06:02)
[2018-05-01] MEDS ORDERED: Potassium Phosphate 9 MMOL in Sodium Chloride 0.9% 100 ML IVPB PRN (06:02)
[2018-05-01] MEDS: Potassium Chloride 40 MEQ in Premix Bag 1 BAG IVPB PRN ×2 (06:14→20:29)
[2018-05-01 07:12] LABS: Actual Bicarbonate (HCO3a) 19.3 mEq/L (22-28); Base Excess (BEa) 1.5 mEq/L (-2.0 to +3.0); Calcium, Ionized 1.09 mmol/L (1.12-1.30); Carboxyhemoglobin (COHb) 0.4 gm% (0.0-3.0); Potassium - ABG Lab 3.28 mmol/L (3.70-5.30)
[2018-05-01 07:13] LABS: CO2 Tension 16.2 mmHg (35.0-45.0); pH, Arterial 7.69 (7.35-7.45)
[2018-05-01 07:14] LABS: Puncture Site RBA
[2018-05-01] MEDS: Morphine 2 MG/ML SYRINGE SLOW IVP PRN (08:03)
[2018-05-01] MEDS: fentaNYL Citrate/PF 2,000 MCG in Sodium Chloride 0.9% 60 ML IV SCH ×2 (08:25→23:03)
[2018-05-01 08:36] LABS: Vancomycin, Trough 21.9 ug/mL
[2018-05-01] MEDS: Polyethylene Glycol 3350 17 GM Packet PO SCH (08:36)
[2018-05-01] MEDS: Pantoprazole 40 MG VIAL IVP SCH ×2 (08:39→20:34)
[2018-05-01] MEDS: Zinc Sulfate 220 MG CAP PO SCH (08:39)
[2018-05-01] MEDS: Multivit, Therapeutic 1 TAB PO SCH (08:40)
[2018-05-01] MEDS: Ascorbic Acid 500 mg Chewable Tablet PO SCH (08:40)
[2018-05-01] MEDS: Insulin Glargine 20 UNITS in Pre-Filled Syringe 1 EACH SC SCH (08:40)
[2018-05-01] MEDS: Vancomycin HCl 500 MG in Sodium Chloride 0.9% 100 ML IVPB SCH ×2 (08:41→20:26)
[2018-05-01] MEDS: Lopinavir/Ritonavir 80 MG/20 MG per ML Oral Solution PER TUBE SCH ×2 (09:00→20:37)
--- NOTE | 2018-05-01 11:29 | PRG ---
DATE OF SERVICE: 05/01/2018 SUBJECTIVE: Ms. Baez is ventilated. She opens her eyes to voice. Her abdomen is soft. Her colostomy mucosa is pink. She has some air and stool in her bag. Her perineal wounds have wound VAC. OBJECTIVE: She is afebrile and her vital signs are stable. LABORATORY DATA: Potassium this morning is 2.8 and creatinine 0.83. ASSESSMENT: Necrotizing perineal infection, status post debridement, wound VAC change. PLAN: Continue ventilation, likely wound VAC change on Thursday by Dr. Mart. Job ID: [id number]
[2018-05-01 11:39] LABS: Actual Bicarbonate (HCO3a) 22.1 mEq/L (22-28); Base Excess (BEa) 0.5 mEq/L (-2.0 to +3.0); Carboxyhemoglobin (COHb) 0.6 gm% (0.0-3.0); O2 Tension (PaO2) 119.7 mmHg (80.0-100.0); Potassium - ABG Lab 3.07 mmol/L (3.70-5.30)
[2018-05-01 11:40] LABS: CO2 Tension 24.4 mmHg (35.0-45.0); pH, Arterial 7.57 (7.35-7.45)
[2018-05-01 11:41] LABS: Puncture Site RBA
--- NOTE | 2018-05-01 12:31 | PDOC.PN ---
- Subjective Encounter Start Date: 05/01/18 Encounter Start Time: 11:00 Subjective: on vent, opens eyes to touch -: not in distress - Objective Resuscitation Status - Order Detail: 04/26/18 08:43 Resuscitation Status Routine Resuscitation Status: FULL: Full Resuscitation Discussed with: esme TOLENTINO Reviewed: Yes Vital Signs & Weight: Vital Signs (12 hours) Pulse Resp 05/01/18 10:18 76 05/01/18 07:06 83 05/01/18 06:00 20 05/01/18 04:00 20 05/01/18 02:00 20 Weight Admit Weight 118 lb 4.8 oz Weight 118 lb 4.8 oz Most Recent Monitor Data Heart Rate from ECG 79 NIBP 112/77 NIBP BP-Mean 88 Respiration from ECG 0 SpO2 100 I&O: 04/30/18 05/01/18 05/02/18 06:59 06:59 06:59 Intake Total 2810 779.6 Output Total 1340 6150 Balance 1470 -5370.4 Result Diagrams: 04/28/18 Unknown 05/01/18 04:40 Additional Labs: Accuchecks 05/01/18 05/01/18 05/01/18 08:08 04:45 01:13 POC Glucose 144 H 115 H 213 H 04/30/18 21:11 POC Glucose 319 H Phys Exam - Physical Examination HEENT: PERRLA, sclera anicteric Neck: no JVD, supple Respiratory: no wheezing rales+ Cardiovascular: RRR, no significant murmur Gastrointestinal: soft, positive bowel sounds abd wall edema+, colostomy has stool Musculoskeletal: pulses present, edema present Neurological: non-focal, moves all 4 limbs Dx/Plan (1) Acute respiratory failure with hypoxia Code(s): J96.01 - ACUTE RESPIRATORY FAILURE WITH HYPOXIA Status: Acute (2) Perirectal abscess Code(s): K61.1 - RECTAL ABSCESS Status: Acute Comment: nectrotising fascitis , S/p debridement x4. Continue Abx per ID recs. Wound vac. (3) SELENA (acute kidney injury) Code(s): N17.9 - ACUTE KIDNEY FAILURE, UNSPECIFIED Status: Acute Comment: resolving (4) Asthma Code(s): J45.909 - UNSPECIFIED ASTHMA, UNCOMPLICATED Status: Chronic Qualifiers: Asthma severity: mild Asthma persistence: intermittent Asthma complication type: uncomplicated Qualified Code(s): J45.20 - Mild intermittent asthma, uncomplicated (5) Diabetes Code(s): E11.9 - TYPE 2 DIABETES MELLITUS WITHOUT COMPLICATIONS Status: Chronic Qualifiers: Diabetes mellitus type: type 2 Diabetes mellitus [facility] insulin use: with intermediate school teacher use Diabetes mellitus complication status: with unspecified complications Qualified Code(s): E11.8 - Type 2 diabetes mellitus with unspecified complications; Z79.4 - [facility] (current) use of insulin Comment: labile (6) HIV (human immunodeficiency virus infection) Status: Chronic Comment: Continue home anti-retrovirals. (7) Sepsis Code(s): A41.9 - SEPSIS, UNSPECIFIED ORGANISM Status: Acute Qualifiers: Sepsis type: Streptococcus, unspecified Qualified Code(s): A40.9 - Streptococcal sepsis, unspecified; A40 - Streptococcal sepsis (8) Anasarca Code(s): R60.1 - GENERALIZED EDEMA Status: Acute (9) Metabolic acidosis Code(s): E87.2 - ACIDOSIS Status: Acute (10) Hypokalemia Code(s): E87.6 - HYPOKALEMIA Status: Acute (11) Physical deconditioning Code(s): R53.81 - OTHER MALAISE Status: Acute (12) Severe protein-calorie malnutrition Code(s): E43 - UNSPECIFIED SEVERE PROTEIN-CALORIE MALNUTRITION Status: Acute (13) FTT (failure to thrive) in adult Status: Acute - Plan will obtain current cd4 count -: on vent, gentle diuresis, replace electrolytes -: on meropenem and vanc, start ng feeding, has very low alb -: continue etravirine, lamivudine and kaletra per -: nebs, cxr for f/u today, prognosis is guarded family is aware * . Review of Systems - Medications/Allergies Allergies/Adverse Reactions: Allergies Allergy/AdvReac Type Severity Reaction Status Date / Time sulfamethoxazole Allergy Nausea Verified 05/03/13 15:27 [From Bactrim] trimethoprim [From Bactrim] Allergy Nausea Verified 05/03/13 15:27 Medications: Current Medications Ascorbic Acid (Vitamin C) 1,000 mg PO DAILY [facility] Last Admin: 05/01/18 08:40 Dose: 1,000 mg Dextrose/Water (Dextrose 50%) 25 gm SLOW IVP PRN PRN PRN Reason: Hypoglycemia Diphenhydramine HCl (Benadryl) 25 mg IVP Q3H PRN PRN Reason: Itching Diphenhydramine HCl (Benadryl) 25 mg PO Q3H PRN PRN Reason: Itching Diphenhydramine HCl (Benadryl) 25 mg IM Q3H PRN PRN Reason: Itching Etravirine (Intelence) 200 mg PO BID-PC [facility] Furosemide (Lasix) 40 mg SLOW IVP 0600,1400 [facility] Last Admin: 05/01/18 05:14 Dose: 40 mg Glucagon (Glucagon) 1 mg IM PRN PRN PRN Reason: Hypoglycemia Dextrose/Water (D5w) 1,000 mls @ 0 mls/hr IV .Q0M PRN PRN Reason: Hypoglycemia Vancomycin HCl 500 mg/ Sodium (Chloride) 100 mls @ 100 mls/hr IVPB 0900,2100 [facility] Last Admin: 05/01/18 08:41 Dose: 100 mls Insulin Glargine 20 units/ (Miscellaneous Medication) 0.2 mls @ 0 mls/hr SC QAM [facility] Last Admin: 05/01/18 08:40 Dose: 0.2 mls Meropenem 1 gm/ Device 50 mls @ 100 mls/hr IVPB Q8HR [facility] Last Admin: 05/01/18 05:14 Dose: 50 mls Fentanyl Citrate 2,000 mcg/ (Sodium Chloride) 100 mls @ 0 mls/hr IV INF [facility]; Protocol Stop: 05/30/18 14:11 Last Admin: 05/01/18 08:25 Dose: 100 mls Fentanyl Citrate (Fentanyl Bolus) 250 mls @ 0 mls/hr IVPB PRN PRN PRN Reason: Breakthrough pain/agitation Stop: 05/30/18 14:11 Potassium Chloride 40 meq/ (Sodium Chloride) 270 mls @ 135 mls/hr IVPB ASDIR PRN PRN Reason: FOR SERUM K+ 2.5 - 3.5 Potassium Chloride 40 meq/ (Device) 100 mls @ 50 mls/hr IVPB [facility] PRN PRN Reason: FOR SERUM K+ 2.5 - 3.5 Last Admin: 05/01/18 06:14 Dose: 100 mls Magnesium Sulfate 1 gm/ Sodium (Chloride) 102 mls @ 102 mls/hr IV PRN PRN PRN Reason: MAG LEVEL 1.4 - 2.0 Magnesium Sulfate 2 gm/ Device 100 mls @ 100 mls/hr IVPB ASDIR PRN PRN Reason: MAGNESIUM < 1.4 Potassium Phosphate 9 mmol/ (Sodium Chloride) 103 mls @ 25.75 mls/hr IVPB ASDIR PRN PRN Reason: Phosphate 1.0-1.8 Potassium Phosphate 12 mmol/ (Sodium Chloride) 254 mls @ 63.5 mls/hr IV ASDIR PRN PRN Reason: Serum phosphate 0.5-0.9 Potassium Phosphate 15 mmol/ (Sodium Chloride) 255 mls @ 63.75 mls/hr IV ASDIR PRN PRN Reason: Serum Phos < 0.5 Insulin Human Lispro (Humalog) 0 units SC .AGGRESSIVE SLIDING PRN PRN Reason: Aggressive Correctional Scale Last Admin: 05/01/18 01:15 Dose: 6 unit Lamivudine (Epivir Oral Solution) 150 mg PER TUBE BID [facility] Last Admin: 04/30/18 20:43 Dose: 150 mg Lopinavir/Ritonavir (Kaletra) 400 mg PER TUBE BID [facility] Last Admin: 04/30/18 20:43 Dose: 400 mg Lorazepam (Ativan) 2 mg SLOW IVP Q1H PRN PRN Reason: Breakthrough agitation Stop: 05/30/18 14:11 Magnesium Oxide (Magnesium Oxide) 400 mg PO BIDPRN PRN PRN Reason: FOR SERUM MAG 1.4 - 2.0 Magnesium Oxide (Magnesium Oxide) 800 mg PO PRN PRN PRN Reason: FOR SERUM MAG < 1.4 Miscellaneous Medication (Pharmacy To Dose) 1 each IVPB PRN PRN PRN Reason: Pharmacy to dose Miscellaneous Medication (Phos-Nak) 1 pkt PO TIDPRN PRN PRN Reason: FOR PHOS LEVEL 1.0 - 1.8 Miscellaneous Medication (Phos-Nak) 2 pkt PO TIDPRN PRN PRN Reason: FOR PHOS LEVEL 0.5 - 1.0 Morphine Sulfate (Morphine) 2 mg SLOW IVP Q1H PRN PRN Reason: BREAKTHROUGH PAIN/Agitation Stop: 05/30/18 14:11 Last Admin: 05/01/18 08:03 Dose: 2 mg Multivitamins (Theragran) 1 tab PO DAILY [facility] Last Admin: 05/01/18 08:40 Dose: 1 tab Naloxone HCl (Narcan) 0.2 mg IV Q5MIN PRN PRN Reason: Opiate Reversal Discontinue Previous Narcotic Pain Medications And Benzodiazepines 1 each FS .ONE [facility] Stop: 05/30/18 14:11 Ccu Electrolyte (Replacement Protocol) 0 each FS PRN PRN PRN Reason: FOR ELECTROLYTE REPLACEMENT Ondansetron HCl (Zofran) 4 mg IVP Q6H PRN PRN Reason: Nausea/Vomiting Pantoprazole Sodium (Protonix) 40 mg IVP Q12HR [facility] Last Admin: 05/01/18 08:39 Dose: 40 mg Polyethylene Glycol (Miralax) 17 gm PO DAILY [facility] Last Admin: 05/01/18 08:36 Dose: 17 gm Potassium Chloride (K-Dur) 40 meq PO ASDIR PRN PRN Reason: FOR SERUM K+ 2.5 - 3.5 Potassium Chloride (Klor-Con) 40 meq PER TUBE ASDIR PRN PRN Reason: FOR SERUM K+ 2.5-3.5 Promethazine HCl (Phenergan) 12.5 mg IM Q4H PRN PRN Reason: Nausea/Vomiting Propofol (Diprivan) 1,000 mg IV INF PRN; Protocol PRN Reason: TO ACHIEVE GOAL RASS Stop: 05/30/18 14:11 Last Admin: 05/01/18 04:34 Dose: 1,000 mg Propofol (Diprivan Bolus) 20 mg IV Q5MIN PRN PRN Reason: BREAKTHROUGH AGITATION Stop: 05/30/18 14:11 Sodium Chloride (Flush - Normal Saline) 10 ml IVF Q12HR [facility] Last Admin: 05/01/18 08:36 Dose: 10 ml Sodium Chloride (Flush - Normal Saline) 10 ml IVF PRN PRN PRN Reason: Saline Flush Zinc Sulfate (Zinc Sulfate) 220 mg PO DAILY [facility] Last Admin: 05/01/18 08:39 Dose: 220 mg
--- NOTE | 2018-05-01 13:16 | RAD ---
SINGLE VIEW CHEST: Date: 05/01/18 COMPARISON: 04/30/18. HISTORY: Respiratory distress, status post intubation. FINDINGS: Single view of the chest shows normal sized cardiomediastinal silhouette. An endotracheal tube is see n with its tip in good position just below the lower border of the clavicles. A NG tube courses off t he inferior aspect of the film, likely within the stomach. Central venous catheter is unchanged in po sition. Multifocal fluffy air space opacities are seen consistent with multifocal infiltrates or pulm onary edema. No pleural effusion is seen. IMPRESSION: Stable multifocal infiltrates versus pulmonary edema. POS: [facility]
[2018-05-01] MEDS: Dextrose 50% Abboject 50 ML SYRINGE SLOW IVP PRN (17:30)
[2018-05-01] MEDS: Dextrose 5 % And 0.9 % NaCl 1,000 ML IV SCH (17:38)
[2018-05-01 17:45] LABS: Glucose Accucheck Confirmation 45 mg/dl (70-105)
[2018-05-01] MEDS ORDERED: Dextrose 5 %-0.45 % NaCl 1,000 ML IV SCH (18:15)
--- NOTE | 2018-05-01 20:59 | PRG ---
DATE OF SERVICE: SUBJECTIVE: Nestor did well overnight. Actually her lung compliance improved today, so we switched her from bilevel back to volume ventilation. OBJECTIVE: VITAL SIGNS: Heart rates in the 70s, blood pressure 93/51, respiratory rates in the teens, oximetry is 100%. LUNGS: Clear. HEART: Regular rhythm. ABDOMEN: Soft. EXTREMITIES: Warm. LABORATORY DATA: White count 19.3, hemoglobin 9.2, and platelets 269,000. She still has 43% bands on her peripheral smear. Sodium 138, potassium 2.8, chloride 111, bicarb 21, BUN 24, and creatinine 0.8. pH 7.57, CO2 of 24, PO2 of 119. Actually this blood gas was drawn on tidal volume of 500, rate of 14, her rate was turned down to 8. She has no new positive cultures. Her bronchoalveolar lavage yesterday did not show Pneumocystis. She is tentatively scheduled for another surgery on Thursday. Infiltrates have not improved. It most likely represents adult respiratory distress syndrome. Lung compliance is improved. She is hemodynamically stable with necrotizing fasciitis. She continues to be immunocompromised. She will continue antimicrobial therapy. I met with family and answered all of their questions. Job ID: [id number] MTDD
--- NOTE | 2018-05-02 03:24 | PRG ---
DATE OF SERVICE: 04/30/2018 SUBJECTIVE: Ms. Baez unfortunately had more extension of the necrosis towards the back of the gluteal region and end up having to be transferred to the ICU after she developed hypoxemia. She was intubated now. She is not on pressors. She was sedated. OBJECTIVE: VITAL SIGNS: T-max of 100.3. HEENT: Ocular movements are not testable. Her pupils are miotic. Orotracheal intubation. Orogastric intubation. LUNGS: Bilateral lung sounds, which are clear. HEART: S1, S2. Regular rate and rhythm without murmurs. ABDOMEN: Not distended. : Bass catheter in place. Urine output 1440. Stool about 600 mL. Balance is positive 1400 mL over the past 24 hours. SKIN: Shows the area of extensive wound debridement with negative pressure dressing and shows central line and Bass catheter. LABORATORY DATA: White cell count was at 19.3, hemoglobin 9.2, platelets 269, and 43% bands. Chemistry with a creatinine of 0.83, sodium 138, and potassium 2.8. Albumin is 1.9. Urinalysis was not remarkable. Microbiology again with Streptococcus anginosus and three different anaerobes isolated and mostly gram-positive and variable organisms. She had Enterococcus faecalis in the urine culture and that is probably more of a colonizer. IMAGING STUDIES: Chest x-ray from April 30 with a left-sided central venous catheter. Stable heart size. Diffuse alveolar opacities, probably edema or ARDS. The last operative note from Dr. Montgomery was noted. Necrotizing fasciitis of both buttocks and perineum noted. ASSESSMENT AND DISCUSSION: 1. Type 1 diabetes. 2. Longstanding human immunodeficiency virus infection with erratic adherence. Her last CD4 cell count was 61 in February. 3. Necrotizing infection, perineal area, polymicrobial with usual pathogens, but no staphylococcal infection found, mostly gram-positive streptococcal pathogen and anaerobes. 4. The patient has developed respiratory complications related to the sepsis acute respiratory distress syndrome. Pneumocystis is less likely since she had been on adequate prophylaxis, but not completely ruled out. Continue Mepron prophylaxis given the orogastric tube. Switch her to etravirine, lamivudine, and Kaletra HIV liquid formulations available for antiretroviral therapy in the hospital. Continue meropenem as previously prescribed. Job ID: [id number] [facility]
[2018-05-02] MEDS: MEROPENEM 1 GM/50 ML 1 GM in Premix Bag 1 BAG IVPB SCH ×3 (05:05→21:10)
[2018-05-02] MEDS: Furosemide 40 MG/4 ML VIAL SLOW IVP SCH ×2 (05:06→16:32)
[2018-05-02 05:15] LABS: Anion Gap 9 mmol/L (10-20); BUN (Urea Nitrogen) 16 mg/dL (7.0-18.7); Calc. Creatinine Clearance 92 mL/min (70-130); Calcium 7.8 mg/dL (7.8-10.44); Carbon Dioxide 24 mmol/L (22-29); Chloride 111 mmol/L (98-107); Estimated GFR-MDRD Greater than 90; Glucose 86 mg/dL (70-105); Potassium 3.4 mmol/L (3.5-5.1); Sodium 141 mmol/L (136-145)
[2018-05-02 05:32] LABS: Band 11 % (5-11); Lymphocytes 7 % (21-51); MDiff Complete? YES; Mean Corpuscular HGB CONC 32.8 g/dL (32.0-36.0); Mean Corpuscular Hemoglobin 27.8 pg (27.0-31.0); Mean Corpuscular Volume 84.8 fL (78.0-98.0); Mean Platelet Volume 8.1 fL (7.4-10.4); Metamyelocyte 2 % (0-0); Monocytes 3 % (0-10); Myelocyte 1 % (0-0); Neutrophil 76 % (42-75); PLT Morphology Comment Appears Adequate; Platelet Count 386 thou/uL (130-400); RBC Distribution Width 13.3 % (11.5-14.5); RBC Morphology Normal; Red Blood Cell (RBC) Count 2.87 mill/uL (4.20-5.40); White Blood Cell (WBC) Count 20.5 thou/uL (4.8-10.8)
[2018-05-02] MEDS: Potassium Chloride 40 MEQ in Premix Bag 1 BAG IVPB PRN (06:07)
[2018-05-02 06:52] LABS: Actual Bicarbonate (HCO3a) 25.5 mEq/L (22-28); Base Excess (BEa) 1.7 mEq/L (-2.0 to +3.0); CO2 Tension 36.2 mmHg (35.0-45.0); Calcium, Ionized 1.12 mmol/L (1.12-1.30); Carboxyhemoglobin (COHb) 1.6 gm% (0.0-3.0); Hemoglobin (Hb) 8.3 g/dL (12.0-16.0); O2 Tension (PaO2) 112.2 mmHg (80.0-100.0); Puncture Site RRA; pH, Arterial 7.47 (7.35-7.45)
[2018-05-02] MEDS: Zinc Sulfate 220 MG CAP PO SCH (08:42)
[2018-05-02] MEDS: Lopinavir/Ritonavir 80 MG/20 MG per ML Oral Solution PER TUBE SCH ×2 (08:42→21:21)
[2018-05-02] MEDS: Vancomycin HCl 500 MG in Sodium Chloride 0.9% 100 ML IVPB SCH ×2 (08:43→21:09)
[2018-05-02] MEDS: Polyethylene Glycol 3350 17 GM Packet PO SCH (08:43)
[2018-05-02] MEDS: Ascorbic Acid 500 mg Chewable Tablet PO SCH (08:43)
[2018-05-02] MEDS: Pantoprazole 40 MG VIAL IVP SCH ×2 (08:43→21:10)
[2018-05-02] MEDS: Multivit, Therapeutic 1 TAB PO SCH (08:43)
[2018-05-02] MEDS: fentaNYL Citrate/PF 2,000 MCG in Sodium Chloride 0.9% 60 ML IV SCH ×2 (09:29→19:23)
[2018-05-02] MEDS: Lorazepam 2 MG/ML VIAL SLOW IVP PRN (10:07)
--- NOTE | 2018-05-02 12:45 | PRG ---
DATE OF SERVICE: 05/02/2018 SUBJECTIVE: Ms. Baez remains stable hemodynamically, not requiring pressors. Still on the ventilator. OBJECTIVE: T-max 98.9. Urine output 1150 last shift. Abdomen is soft. Colostomy mucosa, pink. Wound has the wound VAC. LABORATORY DATA: White blood cell count is 20, hemoglobin is 8, platelet count is 386. Her bandemia has resolved. Cultures reveal Strep. ASSESSMENT: Necrotizing infection, perineum, status post multiple debridements with colostomy. Hemodynamically stable. Sepsis has resolved. PLAN: Plan to be taken back to the OR tomorrow for VAC replacement. Job ID: [id number]
[2018-05-02] MEDS: HumaLOG 300 UNITS/3 ML VIAL SC PRN ×2 (13:37→21:54)
--- NOTE | 2018-05-02 13:37 | PDOC.PN ---
- Subjective Encounter Start Date: 05/02/18 Encounter Start Time: 11:30 Subjective: on vent, awakens easily -: not in distress - Objective Resuscitation Status - Order Detail: 04/26/18 08:43 Resuscitation Status Routine Resuscitation Status: FULL: Full Resuscitation Discussed with: esme TOLENTINO Reviewed: Yes Vital Signs & Weight: Vital Signs (12 hours) Temp Pulse Resp BP Pulse Ox 05/02/18 13:20 71 05/02/18 12:00 97.9 F 8 L 05/02/18 10:31 75 05/02/18 10:00 10 L 05/02/18 08:00 98.1 F 8 L 100 05/02/18 06:42 88 05/02/18 06:00 10 L 05/02/18 04:00 98.0 F 10 L 05/02/18 02:19 77 91/49 L 05/02/18 02:00 10 L Weight Admit Weight 118 lb 4.8 oz Weight 142 lb 10.225 oz Most Recent Monitor Data Heart Rate from ECG 82 NIBP 96/60 NIBP BP-Mean 72 Respiration from ECG 7 SpO2 100 I&O: 05/01/18 05/02/18 05/03/18 06:59 06:59 06:59 Intake Total 779.6 1619.3 Output Total 6150 3880 1273 [facility] -5370.4 -2260.7 -1273 Result Diagrams: 05/02/18 04:53 05/02/18 04:53 Additional Labs: Accuchecks 05/02/18 05/02/18 05/02/18 08:28 03:25 00:14 POC Glucose 114 H 82 71 05/01/18 05/01/18 05/01/18 19:10 17:13 17:01 POC Glucose 116 H 56 L* 54 L* Phys Exam - Physical Examination HEENT: PERRLA, sclera anicteric Neck: no JVD, supple Respiratory: no wheezing rales+ Cardiovascular: RRR, no significant murmur Gastrointestinal: soft, non-tender, positive bowel sounds abd wall edema+ Musculoskeletal: pulses present, edema present Neurological: non-focal, moves all 4 limbs Dx/Plan (1) Acute respiratory failure with hypoxia Code(s): J96.01 - ACUTE RESPIRATORY FAILURE WITH HYPOXIA Status: Acute (2) Perirectal abscess Code(s): K61.1 - RECTAL ABSCESS Status: Acute Comment: nectrotising fascitis , S/p debridement x4. Continue Abx per ID recs. Wound vac. 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 (7) Sepsis Code(s): A41.9 - SEPSIS, UNSPECIFIED ORGANISM Status: Acute Qualifiers: Sepsis type: Streptococcus, unspecified Qualified Code(s): A40.9 - Streptococcal sepsis, unspecified; A40 - Streptococcal sepsis (8) Anasarca Code(s): R60.1 - GENERALIZED EDEMA Status: Acute (9) Metabolic acidosis Code(s): E87.2 - ACIDOSIS Status: Resolved (10) Hypokalemia Code(s): E87.6 - HYPOKALEMIA Status: Acute (11) Physical deconditioning Code(s): R53.81 - OTHER MALAISE Status: Acute (12) Severe protein-calorie malnutrition Code(s): E43 - UNSPECIFIED SEVERE PROTEIN-CALORIE MALNUTRITION Status: Acute (13) FTT (failure to thrive) in adult Status: Acute - Plan is on meropenem and vanc -: going to OR in am for further debridement -: wound is in vac draining blood tinged fluid -: is doing well on vent -: will start ng tube feedings from now and hold at midnight for debridement * . HIV meds per Prognosis guarded with severe immunosuppression from noncompliant status with HIV and low cd4, a current level is pending. Review of Systems - Medications/Allergies Allergies/Adverse Reactions: Allergies Allergy/AdvReac Type Severity Reaction Status Date / Time sulfamethoxazole Allergy Nausea Verified 05/03/13 15:27 [From Bactrim] trimethoprim [From Bactrim] Allergy Nausea Verified 05/03/13 15:27 Medications: Current Medications Ascorbic Acid (Vitamin C) 1,000 mg PO DAILY [facility] Last Admin: 05/02/18 08:43 Dose: 1,000 mg Dextrose/Water (Dextrose 50%) 25 gm SLOW IVP PRN PRN PRN Reason: Hypoglycemia Last Admin: 05/01/18 17:30 Dose: 25 gm Diphenhydramine HCl (Benadryl) 25 mg IVP Q3H PRN PRN Reason: Itching Diphenhydramine HCl (Benadryl) 25 mg PO Q3H PRN PRN Reason: Itching Diphenhydramine HCl (Benadryl) 25 mg IM Q3H PRN PRN Reason: Itching Etravirine (Intelence) 200 mg PO BID-PC [facility] Last Admin: 05/02/18 08:42 Dose: 200 mg Furosemide (Lasix) 20 mg SLOW IVP 0600,1400 [facility] Last Admin: 05/02/18 05:06 Dose: 20 mg Glucagon (Glucagon) 1 mg IM PRN PRN PRN Reason: Hypoglycemia Dextrose/Water (D5w) 1,000 mls @ 0 mls/hr IV .Q0M PRN PRN Reason: Hypoglycemia Vancomycin HCl 500 mg/ Sodium (Chloride) 100 mls @ 100 mls/hr IVPB 0900,2100 [facility] Last Admin: 05/02/18 08:43 Dose: 100 mls Meropenem 1 gm/ Device 50 mls @ 100 mls/hr IVPB Q8HR [facility] Last Admin: 05/02/18 05:05 Dose: 50 mls Fentanyl Citrate 2,000 mcg/ (Sodium Chloride) 100 mls @ 0 mls/hr IV INF ASAD; Protocol Stop: 05/30/18 14:11 Last Admin: 05/02/18 09:29 Dose: 100 mls Fentanyl Citrate (Fentanyl Bolus) 250 mls @ 0 mls/hr IVPB PRN PRN PRN Reason: Breakthrough pain/agitation Stop: 05/30/18 14:11 Potassium Chloride 40 meq/ (Sodium Chloride) 270 mls @ 135 mls/hr IVPB ASDIR PRN PRN Reason: FOR SERUM K+ 2.5 - 3.5 Potassium Chloride 40 meq/ (Device) 100 mls @ 50 mls/hr IVPB ASDIR PRN PRN Reason: FOR SERUM K+ 2.5 - 3.5 Last Admin: 05/02/18 06:07 Dose: 100 mls Magnesium Sulfate 1 gm/ Sodium (Chloride) 102 mls @ 102 mls/hr IV PRN PRN PRN Reason: MAG LEVEL 1.4 - 2.0 Magnesium Sulfate 2 gm/ Device 100 mls @ 100 mls/hr IVPB ASDIR PRN PRN Reason: MAGNESIUM < 1.4 Potassium Phosphate 9 mmol/ (Sodium Chloride) 103 mls @ 25.75 mls/hr IVPB ASDIR PRN PRN Reason: Phosphate 1.0-1.8 Potassium Phosphate 12 mmol/ (Sodium Chloride) 254 mls @ 63.5 mls/hr IV ASDIR PRN PRN Reason: Serum phosphate 0.5-0.9 Potassium Phosphate 15 mmol/ (Sodium Chloride) 255 mls @ 63.75 mls/hr IV ASDIR PRN PRN Reason: Serum Phos < 0.5 Dextrose/Sodium Chloride (D5 0.9% Ns) 1,000 mls @ 50 mls/hr IV .Q20H [facility] Last Admin: 05/01/18 17:38 Dose: 1,000 mls Insulin Human Lispro (Humalog) 0 units SC .AGGRESSIVE SLIDING PRN PRN Reason: Aggressive Correctional Scale Last Admin: 05/01/18 01:15 Dose: 6 unit Lamivudine (Epivir Oral Solution) 150 mg PER TUBE BID [facility] Last Admin: 05/02/18 08:42 Dose: 150 mg Lopinavir/Ritonavir (Kaletra) 400 mg PER TUBE BID [facility] Last Admin: 05/02/18 08:42 Dose: 400 mg Lorazepam (Ativan) 2 mg SLOW IVP Q1H PRN PRN Reason: Breakthrough agitation Stop: 05/30/18 14:11 Last Admin: 05/02/18 10:07 Dose: 2 mg Magnesium Oxide (Magnesium Oxide) 400 mg PO BIDPRN PRN PRN Reason: FOR SERUM MAG 1.4 - 2.0 Magnesium Oxide (Magnesium Oxide) 800 mg PO PRN PRN PRN Reason: FOR SERUM MAG < 1.4 Miscellaneous Medication (Pharmacy To Dose) 1 each IVPB PRN PRN PRN Reason: Pharmacy to dose Miscellaneous Medication (Phos-Nak) 1 pkt PO TIDPRN PRN PRN Reason: FOR PHOS LEVEL 1.0 - 1.8 Miscellaneous Medication (Phos-Nak) 2 pkt PO TIDPRN PRN PRN Reason: FOR PHOS LEVEL 0.5 - 1.0 Morphine Sulfate (Morphine) 2 mg SLOW IVP Q1H PRN PRN Reason: BREAKTHROUGH PAIN/Agitation Stop: 05/30/18 14:11 Last Admin: 05/01/18 08:03 Dose: 2 mg Multivitamins (Theragran) 1 tab PO DAILY [facility] Last Admin: 05/02/18 08:43 Dose: 1 tab Naloxone HCl (Narcan) 0.2 mg IV Q5MIN PRN PRN Reason: Opiate Reversal Discontinue Previous Narcotic Pain Medications And Benzodiazepines 1 each FS .ONE ASAD Stop: 05/30/18 14:11 Ccu Electrolyte (Replacement Protocol) 0 each FS PRN PRN PRN Reason: FOR ELECTROLYTE REPLACEMENT Ondansetron HCl (Zofran) 4 mg IVP Q6H PRN PRN Reason: Nausea/Vomiting Pantoprazole Sodium (Protonix) 40 mg IVP Q12HR [facility] Last Admin: 05/02/18 08:43 Dose: 40 mg Polyethylene Glycol (Miralax) 17 gm PO DAILY [facility] Last Admin: 05/02/18 08:43 Dose: 17 gm Potassium Chloride (K-Dur) 40 meq PO ASDIR PRN PRN Reason: FOR SERUM K+ 2.5 - 3.5 Potassium Chloride (Klor-Con) 40 meq PER TUBE ASDIR PRN PRN Reason: FOR SERUM K+ 2.5-3.5 Promethazine HCl (Phenergan) 12.5 mg IM Q4H PRN PRN Reason: Nausea/Vomiting Propofol (Diprivan) 1,000 mg IV INF PRN; Protocol PRN Reason: TO ACHIEVE GOAL RASS Stop: 05/30/18 14:11 Last Admin: 05/01/18 04:34 Dose: 1,000 mg Propofol (Diprivan Bolus) 20 mg IV Q5MIN PRN PRN Reason: BREAKTHROUGH AGITATION Stop: 05/30/18 14:11 Sodium Chloride (Flush - Normal Saline) 10 ml IVF Q12HR [facility] Last Admin: 05/02/18 08:43 Dose: 10 ml Sodium Chloride (Flush - Normal Saline) 10 ml IVF PRN PRN PRN Reason: Saline Flush Zinc Sulfate (Zinc Sulfate) 220 mg PO DAILY [facility] Last Admin: 05/02/18 08:42 Dose: 220 mg
--- NOTE | 2018-05-02 14:23 | PRG ---
DATE OF SERVICE: 05/02/2018 SUBJECTIVE: The patient in ICU, intubated. She was very alert before and moving about, and now she is sleeping with Ativan. OBJECTIVE: VITAL SIGNS: T-max of 98.7, BP 96/60, she is not on pressors, pulse 82, O2 sats 100%, FiO2 of 30, and PEEP of 5. Pupils are equal. LUNGS: Symmetric air entry. HEART: S1, S2. Regular rate. ABDOMEN: Soft. Diminished bowel sounds. Bass catheter in place. I's and O's are negative; -5000 yesterday and -2200 today and has a negative pressure dressing at the area of necrotizing infection. LABORATORY DATA: White cell count is at 20.5, hemoglobin 8, platelets 286, but the bands are down to 11% from 43, which is a clear-cut improvement. Creatinine 0.7. Microbiology with Streptococcus anginosus and three different anaerobes in the abscess cultures. Acid-fast in the bronchial wash negative. Chest x-ray from yesterday, multifocal infiltrates, more likely to represent pulmonary edema. Pathology from the bronchoscopy specimen is pending. ASSESSMENT AND DISCUSSION: 1. Longstanding HIV infection with erratic adherence to anti-retroviral therapy. Last CD4 cell count was 61. 2. Necrotizing infection, perineal area, status post extensive surgical debridement development of respiratory complications, volume overload. I believe volume overload with pulmonary edema, more likely than pneumocystis or other opportunistic infection. However proper specimen for microbiology and pathology workup have been submitted, they are still pending at this point in time. The patient will continue on meropenem and anti-retroviral therapy and supportive care. Job ID: [id number]
[2018-05-02] MEDS: Dextrose 5 % And 0.9 % NaCl 1,000 ML IV SCH (16:32)
[2018-05-02] MEDS: Albumin 25% 25 GM/100 ML BOT IVPB SCH ×2 (16:33→23:04)
[2018-05-02 20:39] LABS: Vancomycin, Trough 17.7 ug/mL
[2018-05-03] MEDS: HumaLOG 300 UNITS/3 ML VIAL SC PRN ×4 (01:04→18:27)
[2018-05-03] MEDS: Albumin 25% 25 GM/100 ML BOT IVPB SCH ×3 (05:00→17:52)
[2018-05-03] MEDS: MEROPENEM 1 GM/50 ML 1 GM in Premix Bag 1 BAG IVPB SCH ×3 (05:00→20:36)
[2018-05-03] MEDS: Furosemide 40 MG/4 ML VIAL SLOW IVP SCH ×2 (06:16→17:52)
--- NOTE | 2018-05-03 06:24 | PRG ---
DATE OF SERVICE: 05/02/2018 SUBJECTIVE: Cortney Baez awakens easily. She moves all extremities. OBJECTIVE: VITAL SIGNS: Heart rate is in the 80s, blood pressure is in the 90s, respiratory rate is in the teens. LUNGS: Clear anteriorly. HEART: Regular rhythm. ABDOMEN: Soft. EXTREMITIES: Warm. LABORATORY DATA: White count 20.5, hemoglobin 8.0, and platelets 386. Sodium 141, potassium 3.4, chloride 111, bicarb 24, BUN 16, and creatinine 0.7. pH 7.47, CO2 of 36, PO2 of 112. IMPRESSION: 1. Necrotizing fasciitis with acute respiratory distress syndrome. 2. Human immunodeficiency virus positive. 3. Status post negative bronchoalveolar lavage. PLAN: Continue ventilation, pain medications for comfort. Sedation as needed. Repeat operative procedure . Job ID: [id number]
[2018-05-03] MEDS: fentaNYL Citrate/PF 2,000 MCG in Sodium Chloride 0.9% 60 ML IV SCH ×2 (07:22→17:52)
[2018-05-03] MEDS: Dextrose 5 % And 0.9 % NaCl 1,000 ML IV SCH ×2 (08:04→17:52)
[2018-05-03 08:08] LABS: INR-International Normal Ratio 1.2; Prothrombin Time 15.3 SEC (12.0-14.7)
[2018-05-03 08:14] LABS: ALT (SGPT) 8 U/L (8-55); AST (SGOT) 15 U/L (5-34); Albumin 3.2 g/dL (3.5-5.0); Alkaline Phosphatase 139 U/L (40-150); Anion Gap 11 mmol/L (10-20); BUN (Urea Nitrogen) 11 mg/dL (7.0-18.7); Bilirubin, Total 1.1 mg/dL (0.2-1.2); Calc. Creatinine Clearance 102 mL/min (70-130); Calcium 8.6 mg/dL (7.8-10.44); Carbon Dioxide 27 mmol/L (22-29); Chloride 107 mmol/L (98-107); Estimated GFR-MDRD Greater than 90; Globulin 3.1 g/dL (2.4-3.5); Glucose 158 mg/dL (70-105); Potassium 3.3 mmol/L (3.5-5.1); Protein, Total 6.3 g/dL (6.0-8.3); Sodium 142 mmol/L (136-145)
[2018-05-03] MEDS: Ascorbic Acid 500 mg Chewable Tablet PO SCH (08:36)
[2018-05-03] MEDS: Vancomycin HCl 500 MG in Sodium Chloride 0.9% 100 ML IVPB SCH ×2 (08:37→20:38)
[2018-05-03] MEDS: Pantoprazole 40 MG VIAL IVP SCH ×2 (08:37→21:30)
[2018-05-03] MEDS: Multivit, Therapeutic 1 TAB PO SCH (08:37)
[2018-05-03] MEDS: Zinc Sulfate 220 MG CAP PO SCH (08:37)
--- NOTE | 2018-05-03 08:37 | RAD ---
CHEST 1 VIEW: Date: 05/03/18 INDICATION: History of intubation. COMPARISON: Prior study dated 05/01/18. FINDINGS: Multiple cardiac leads overlie the patient. The patient remains intubated with associated left subcla vian central venous catheter and gastric catheter placement. No definite pneumothorax is evident. The re has been improvement in the patchy air space opacity seen affecting both lungs, may reflect improv ing edema or pneumonia. Osseous structures appear unchanged. IMPRESSION: 1. Improvement in the multifocal air space opacities affecting both lungs may reflect improving shaq a or pneumonia. Continued follow-up is recommended. 2. Tubes and lines appear similar to the comparison study. POS: [facility]
[2018-05-03] MEDS: Polyethylene Glycol 3350 17 GM Packet PO SCH (08:38)
[2018-05-03 08:46] LABS: Band 30 % (5-11); Hemoglobin 8.3 g/dL (12.0-16.0); Hypochromia SLIGHT = 6-15 cells (100X) (0-5/hpf); Lymphocytes 1 % (21-51); MDiff Complete? YES; Mean Corpuscular HGB CONC 33.4 g/dL (32.0-36.0); Mean Corpuscular Hemoglobin 28.6 pg (27.0-31.0); Mean Corpuscular Volume 85.7 fL (78.0-98.0); Mean Platelet Volume 8.1 fL (7.4-10.4); Monocytes 1 % (0-10); Neutrophil 68 % (42-75); PLT Morphology Comment Appears Increased; Platelet Count 409 thou/uL (130-400); RBC Distribution Width 13.3 % (11.5-14.5); Red Blood Cell (RBC) Count 2.89 mill/uL (4.20-5.40); Target Cells SLIGHT = 2-5 cells (100X) (0-1/hpf); White Blood Cell (WBC) Count 19.1 thou/uL (4.8-10.8)
--- NOTE | 2018-05-03 08:50 | PRG ---
DATE OF SERVICE: 05/03/2018 SUBJECTIVE: She remains intubated in the vent, awake, and responsive. She is going once again for a clean-out of her necrotizing fasciitis. OBJECTIVE: VITAL SIGNS: Pulse 81, blood pressure 160/70, saturations 100% on 25% FiO2. GENERAL: She is awake, alert, and responsive. She was told she is going to be intubated until name of surgery is contemplated. EXTREMITIES: Otherwise, moves all four extremities. CHEST: Decreased breath sounds. No wheezing. CARDIAC: Normal S1 and S2. No gallops. ABDOMEN: Soft without any masses. NEUROLOGIC: She is awake. LABORATORY DATA: No lab was ordered today except for a glucose of 170. IMPRESSION: 1. Necrotizing fasciitis. 2. Human immunodeficiency virus. PLAN: She is on medication for her HIV disease. Antibiotics as per Infectious Disease. Meropenem and vancomycin. We will wean and extubate postsurgery one half hour critical care. Job ID: [id number] MTDD
[2018-05-03] MEDS: Potassium Chloride 40 MEQ in Premix Bag 1 BAG IVPB PRN (09:10)
[2018-05-03] MEDS: Lopinavir/Ritonavir 80 MG/20 MG per ML Oral Solution PER TUBE SCH ×2 (09:10→21:35)
--- NOTE | 2018-05-03 11:37 | OP ---
DATE OF PROCEDURE: 04/30/2018 PROCEDURE PERFORMED: Intubation followed by bronchoalveolar lavage. PROCEDURE: She received 1 mg of Versed after 4 mg of morphine. She was somnolent. A bite block was placed in her mouth. She cooperated with this. Bronchoscope was passed into the throat and the vocal cords were visualized. Vocal cords appeared normal. Scope was passed through the vocal cords into the trachea. The endotracheal tube was easily advanced to 21 cm at the lip, which placed it above the main carolyn. This was secured in place. The scope was removed. She was Ambu bagged and then connected to mechanical ventilation. She was then chemically paralyzed. The bronchoscope was then reintroduced and passed down to the right middle lobe. Lateral segment of the right middle lobe was entered and 60 mL of saline was lavaged in with approximately 35 mL to 40 mL returned. This was sent to the lab for the usual immunocompromised pathogen workup to include ruling out pneumocystis, AFB, and fungus as well as routine cultures. I doubt she has alveolar hemorrhage, lymphocytic interstitial pneumonitis or bacterial process creating a radiograph. Most likely, it is noncardiogenic pulmonary edema. PLAN: Is to take her to the operating room for further debridement today. Job ID: [id number]
[2018-05-03 12:11] LABS: %CD4 (Helper/Inducer) 12.6 % (30.8-58.5); Absolute CD4 126 /uL (359-1519); Total Lymphocyte 6 % (Not Estab.); WBC Total Count 17.2 x10E3/uL (3.4-10.8)
--- NOTE | 2018-05-03 13:36 | PDOC.PN ---
- Subjective Encounter Start Date: 05/03/18 Encounter Start Time: 07:20 Subjective: on vent, awake - Objective Resuscitation Status - Order Detail: 04/26/18 08:43 Resuscitation Status Routine Resuscitation Status: FULL: Full Resuscitation Discussed with: patient RANDA Reviewed: Yes Vital Signs & Weight: Vital Signs (12 hours) Temp Pulse Resp BP Pulse Ox 05/03/18 12:00 28 H 05/03/18 11:59 98.6 F 05/03/18 10:51 84 127/77 05/03/18 10:00 14 05/03/18 08:00 98.8 F 17 100 05/03/18 06:50 88 96/59 L 05/03/18 06:00 11 L 05/03/18 04:00 98.7 F 11 L 05/03/18 02:29 84 05/03/18 02:00 11 L Weight Admit Weight 118 lb 4.8 oz Weight 138 lb 0.15 oz Most Recent Monitor Data Heart Rate from ECG 88 NIBP 145/95 NIBP BP-Mean 111 Respiration from ECG 18 SpO2 100 I&O: 05/02/18 05/03/18 05/04/18 06:59 06:59 06:59 Intake Total 1619.3 2640 100 Output Total 3880 3418 1380 Balance -2260.7 -934 -6030 Result Diagrams: 05/03/18 07:21 05/03/18 07:21 Additional Labs: Accuchecks 05/03/18 05/03/18 05/03/18 11:25 07:21 04:56 POC Glucose 196 H 170 H 182 H 05/03/18 05/02/18 05/02/18 00:46 21:54 16:30 POC Glucose 178 H 193 H 120 H 05/02/18 13:27 POC Glucose 180 H Phys Exam - Physical Examination HEENT: PERRLA, moist MMs Neck: no JVD, supple Respiratory: no wheezing, no rales Cardiovascular: RRR, no significant murmur Gastrointestinal: soft, no distention, positive bowel sounds abd wall edema+ Musculoskeletal: pulses present, edema present Neurological: non-focal, moves all 4 limbs Dx/Plan (1) Acute respiratory failure with hypoxia Code(s): J96.01 - ACUTE RESPIRATORY FAILURE WITH HYPOXIA Status: Acute (2) Perirectal abscess Code(s): K61.1 - RECTAL ABSCESS Status: Acute Comment: nectrotising fascitis , S/p debridement x4. Continue Abx per ID recs. Wound vac. (3) SELENA (acute kidney injury) Code(s): N17.9 - ACUTE KIDNEY FAILURE, UNSPECIFIED Status: Resolved (4) Asthma Code(s): J45.909 - UNSPECIFIED ASTHMA, UNCOMPLICATED Status: Chronic Qualifiers: Asthma severity: mild Asthma persistence: intermittent Asthma complication type: uncomplicated Qualified Code(s): J45.20 - Mild intermittent asthma, uncomplicated (5) Diabetes Code(s): E11.9 - TYPE 2 DIABETES MELLITUS WITHOUT COMPLICATIONS Status: Chronic Qualifiers: Diabetes mellitus type: type 2 Diabetes mellitus prison insulin use: with terminal operator use Diabetes mellitus complication status: with unspecified complications Qualified Code(s): E11.8 - Type 2 diabetes mellitus with unspecified complications; Z79.4 - shelter (current) use of insulin Comment: labile (6) HIV (human immunodeficiency virus infection) Status: Chronic Comment: Continue home anti-retrovirals. last CD4 is 61, new level is pending (7) Sepsis Code(s): A41.9 - SEPSIS, UNSPECIFIED ORGANISM Status: Acute Qualifiers: Sepsis type: Streptococcus, unspecified Qualified Code(s): A40.9 - Streptococcal sepsis, unspecified; A40 - Streptococcal sepsis (8) Anasarca Code(s): R60.1 - GENERALIZED EDEMA Status: Acute (9) Metabolic acidosis Code(s): E87.2 - ACIDOSIS Status: Resolved (10) Hypokalemia Code(s): E87.6 - HYPOKALEMIA Status: Acute (11) Physical deconditioning Code(s): R53.81 - OTHER MALAISE Status: Acute (12) Severe protein-calorie malnutrition Code(s): E43 - UNSPECIFIED SEVERE PROTEIN-CALORIE MALNUTRITION Status: Acute (13) FTT (failure to thrive) in adult Status: Acute - Plan is on meropenem and vanc -: going for debridement this am -: still has abd wall edema, cxr is slowly clearing up of edema/ards -: on lasix, recieving alb infusions, had 1 unit prbc yesterday -: continue etravirine, lamivudine and kaletra * . Review of Systems - Medications/Allergies Allergies/Adverse Reactions: Allergies Allergy/AdvReac Type Severity Reaction Status Date / Time sulfamethoxazole Allergy Nausea Verified 05/03/13 15:27 [From Bactrim] trimethoprim [From Bactrim] Allergy Nausea Verified 05/03/13 15:27 Medications: Current Medications Albumin Human (Albumin 25%) 25 gm IVPB Q6HR [facility] Stop: 05/04/18 12:01 Last Admin: 05/03/18 11:20 Dose: 25 gm Ascorbic Acid (Vitamin C) 1,000 mg PO DAILY [facility] Last Admin: 05/03/18 08:36 Dose: 1,000 mg Dextrose/Water (Dextrose 50%) 25 gm SLOW IVP PRN PRN PRN Reason: Hypoglycemia Last Admin: 05/01/18 17:30 Dose: 25 gm Diphenhydramine HCl (Benadryl) 25 mg IVP Q3H PRN PRN Reason: Itching Diphenhydramine HCl (Benadryl) 25 mg PO Q3H PRN PRN Reason: Itching Diphenhydramine HCl (Benadryl) 25 mg IM Q3H PRN PRN Reason: Itching Etravirine (Intelence) 200 mg PO BID-PC [facility] Last Admin: 05/03/18 08:36 Dose: 200 mg Furosemide (Lasix) 20 mg SLOW IVP 0600,1400 [facility] Last Admin: 05/03/18 06:16 Dose: 20 mg Glucagon (Glucagon) 1 mg IM PRN PRN PRN Reason: Hypoglycemia Dextrose/Water (D5w) 1,000 mls @ 0 mls/hr IV .Q0M PRN PRN Reason: Hypoglycemia Vancomycin HCl 500 mg/ Sodium (Chloride) 100 mls @ 100 mls/hr IVPB 0900,2100 [facility] Last Admin: 05/03/18 08:37 Dose: 100 mls Meropenem 1 gm/ Device 50 mls @ 100 mls/hr IVPB Q8HR [facility] Last Admin: 05/03/18 05:00 Dose: 50 mls Fentanyl Citrate 2,000 mcg/ (Sodium Chloride) 100 mls @ 0 mls/hr IV INF [facility]; Protocol Stop: 05/30/18 14:11 Last Admin: 05/03/18 07:22 Dose: 100 mls Fentanyl Citrate (Fentanyl Bolus) 250 mls @ 0 mls/hr IVPB PRN PRN PRN Reason: Breakthrough pain/agitation Stop: 05/30/18 14:11 Potassium Chloride 40 meq/ (Sodium Chloride) 270 mls @ 135 mls/hr IVPB ASDIR PRN PRN Reason: FOR SERUM K+ 2.5 - 3.5 Potassium Chloride 40 meq/ (Device) 100 mls @ 50 mls/hr IVPB ASDIR PRN PRN Reason: FOR SERUM K+ 2.5 - 3.5 Last Admin: 05/03/18 09:10 Dose: 100 mls Magnesium Sulfate 1 gm/ Sodium (Chloride) 102 mls @ 102 mls/hr IV PRN PRN PRN Reason: MAG LEVEL 1.4 - 2.0 Magnesium Sulfate 2 gm/ Device 100 mls @ 100 mls/hr IVPB ASDIR PRN PRN Reason: MAGNESIUM < 1.4 Potassium Phosphate 9 mmol/ (Sodium Chloride) 103 mls @ 25.75 mls/hr IVPB ASDIR PRN PRN Reason: Phosphate 1.0-1.8 Potassium Phosphate 12 mmol/ (Sodium Chloride) 254 mls @ 63.5 mls/hr IV ASDIR PRN PRN Reason: Serum phosphate 0.5-0.9 Potassium Phosphate 15 mmol/ (Sodium Chloride) 255 mls @ 63.75 mls/hr IV ASDIR PRN PRN Reason: Serum Phos < 0.5 Dextrose/Sodium Chloride (D5 0.9% Ns) 1,000 mls @ 50 mls/hr IV .Q20H [facility] Last Admin: 05/03/18 08:04 Dose: 1,000 mls Insulin Human Lispro (Humalog) 0 units SC .AGGRESSIVE SLIDING PRN PRN Reason: Aggressive Correctional Scale Last Admin: 05/03/18 07:28 Dose: 3 unit Lamivudine (Epivir Oral Solution) 150 mg PER TUBE BID [facility] Last Admin: 05/03/18 08:36 Dose: 150 mg Lopinavir/Ritonavir (Kaletra) 400 mg PER TUBE BID [facility] Last Admin: 05/03/18 09:10 Dose: 400 mg Lorazepam (Ativan) 2 mg SLOW IVP Q1H PRN PRN Reason: Breakthrough agitation Stop: 05/30/18 14:11 Last Admin: 05/02/18 10:07 Dose: 2 mg Magnesium Oxide (Magnesium Oxide) 400 mg PO BIDPRN PRN PRN Reason: FOR SERUM MAG 1.4 - 2.0 Magnesium Oxide (Magnesium Oxide) 800 mg PO PRN PRN PRN Reason: FOR SERUM MAG < 1.4 Miscellaneous Medication (Pharmacy To Dose) 1 each IVPB PRN PRN PRN Reason: Pharmacy to dose Miscellaneous Medication (Phos-Nak) 1 pkt PO TIDPRN PRN PRN Reason: FOR PHOS LEVEL 1.0 - 1.8 Miscellaneous Medication (Phos-Nak) 2 pkt PO TIDPRN PRN PRN Reason: FOR PHOS LEVEL 0.5 - 1.0 Morphine Sulfate (Morphine) 2 mg SLOW IVP Q1H PRN PRN Reason: BREAKTHROUGH PAIN/Agitation Stop: 05/30/18 14:11 Last Admin: 05/01/18 08:03 Dose: 2 mg Multivitamins (Theragran) 1 tab PO DAILY [facility] Last Admin: 05/03/18 08:37 Dose: 1 tab Naloxone HCl (Narcan) 0.2 mg IV Q5MIN PRN PRN Reason: Opiate Reversal Discontinue Previous Narcotic Pain Medications And Benzodiazepines 1 each FS .ONE [facility] Stop: 05/30/18 14:11 Ccu Electrolyte (Replacement Protocol) 0 each FS PRN PRN PRN Reason: FOR ELECTROLYTE REPLACEMENT Ondansetron HCl (Zofran) 4 mg IVP Q6H PRN PRN Reason: Nausea/Vomiting Pantoprazole Sodium (Protonix) 40 mg IVP Q12HR [facility] Last Admin: 05/03/18 08:37 Dose: 40 mg Polyethylene Glycol (Miralax) 17 gm PO DAILY [facility] Last Admin: 05/03/18 08:38 Dose: Not Given Potassium Chloride (K-Dur) 40 meq PO ASDIR PRN PRN Reason: FOR SERUM K+ 2.5 - 3.5 Potassium Chloride (Klor-Con) 40 meq PER TUBE ASDIR PRN PRN Reason: FOR SERUM K+ 2.5-3.5 Promethazine HCl (Phenergan) 12.5 mg IM Q4H PRN PRN Reason: Nausea/Vomiting Propofol (Diprivan) 1,000 mg IV INF PRN; Protocol PRN Reason: TO ACHIEVE GOAL RASS Stop: 05/30/18 14:11 Last Admin: 05/01/18 04:34 Dose: 1,000 mg Propofol (Diprivan Bolus) 20 mg IV Q5MIN PRN PRN Reason: BREAKTHROUGH AGITATION Stop: 05/30/18 14:11 Sodium Chloride (Flush - Normal Saline) 10 ml IVF Q12HR [facility] Last Admin: 05/03/18 08:37 Dose: 10 ml Sodium Chloride (Flush - Normal Saline) 10 ml IVF PRN PRN PRN Reason: Saline Flush Zinc Sulfate (Zinc Sulfate) 220 mg PO DAILY [facility] Last Admin: 05/03/18 08:37 Dose: 220 mg
[2018-05-03] MEDS ORDERED: Fentanyl 100 MCG/2 ML VIAL ONE (14:56)
[2018-05-03] MEDS ORDERED: Midazolam HCl 2 mg/2 ml Vial ONE (14:56)
--- NOTE | 2018-05-03 19:27 | PRG ---
DATE OF SERVICE: 05/03/2018 SUBJECTIVE: Still intubated in the ICU, but she is alert. She recognizes me. Follows commands. She is going for a revision of her wound today with general surgeon. OBJECTIVE: VITAL SIGNS: T-max 98.8, blood pressure 160/90, pulse 78, and respirations 12. GENERAL: Awake, oriented, does not appear in distress. LUNGS: Orotracheal intubation with symmetric air entry with clear lung sounds. HEART: S1 and S2. Regular rate. ABDOMEN: Soft, not distended. Negative pressure dressing noted. LABORATORY DATA: White cell count 19.1, hemoglobin 8.3, platelets 409, and 30% bands. Her CD4 cell count has gone up to 126. Microbiology, there is no new changes. She is currently on anti-retroviral medication and meropenem. Chest x-ray with improvement in multifocal airspace opacities. The pathology from the bronchoscopy showed negative for Pneumocystis or other pathogens. ASSESSMENT AND PLAN: 1. Longstanding human immunodeficiency virus infection with erratic adherence to anti-retroviral therapy. 2. Necrotizing infection with polymicrobial irene in perineal area and respiratory failure, most likely due to pulmonary edema and volume overload. The patient is improving and we will continue current management. There is no other opportunistic process at this point in time. Job ID: [id number]
[2018-05-03] MEDS ORDERED: PHENYLEPHRINE-NS 100 MCG/ML 10 ML SYRINGE ONE (19:50)
[2018-05-03] MEDS ORDERED: PROPOFOL 200 MG/20 ML VIAL ONE (19:50)
[2018-05-03] MEDS: Lorazepam 2 MG/ML VIAL SLOW IVP PRN (20:40)
--- NOTE | 2018-05-03 23:44 | OP ---
DATE OF PROCEDURE: 05/03/2018 PREOPERATIVE DIAGNOSES: Necrotizing fasciitis, perineum, perianal, sacrum with human immunodeficiency virus positive. POSTOPERATIVE DIAGNOSES: Necrotizing fasciitis, perineum, perianal, sacrum with human immunodeficiency virus positive. PROCEDURES PERFORMED: Sharp debridement of skin, subcutaneous tissue, devitalized tissue, wound VAC application by Wound Care Team. ANESTHESIA: General. ESTIMATED BLOOD LOSS: Less than 30 mL. DESCRIPTION OF PROCEDURE: The patient was taken to the operating room under general anesthesia in the right lateral decubitus position. After proper padding with beaulieu bag, the area of presacral, buttocks, perineum, and perianal prepared with Betadine and draped in routine fashion. Devitalized demarcated skin excised sharply. Subcutaneous tissue excised sharply. Wound washed with pulse irrigation. Good hemostasis obtained with cautery. Slough was much less than previously and the wound is looking fairly well. Wound Care Team placed a wound VAC. The patient tolerated the procedure well. Job ID: [id number]
[2018-05-04] MEDS: Morphine 2 MG/ML SYRINGE SLOW IVP PRN (02:07)
[2018-05-04] MEDS: fentaNYL Citrate/PF 2,000 MCG in Sodium Chloride 0.9% 60 ML IV SCH (03:29)
[2018-05-04] MEDS: HumaLOG 300 UNITS/3 ML VIAL SC PRN ×5 (04:13→22:53)
[2018-05-04 04:14] LABS: #Eosinphils 0.1 thou/uL (0.0-0.7); #Lymphocytes 0.7 thou/uL (1.20-3.40); #Monocytes 0.5 thou/uL (0.11-0.59); #Neutrophils 18.5 thou/uL (1.40-6.50); %Basophils 0.2 % (0.0-1.0); %Eosinophils 0.4 % (0.0-10.0); %Lymphocytes 3.5 % (21.0-51.0); %Monocytes 2.7 % (0.0-10.0); %Neutrophils 93.3 % (42.0-75.0); Hemoglobin 7.6 g/dL (12.0-16.0); Mean Corpuscular HGB CONC 33.3 g/dL (32.0-36.0); Mean Corpuscular Hemoglobin 28.7 pg (27.0-31.0); Mean Platelet Volume 7.7 fL (7.4-10.4); Platelet Count 477 thou/uL (130-400); RBC Distribution Width 13.3 % (11.5-14.5); Red Blood Cell (RBC) Count 2.64 mill/uL (4.20-5.40); White Blood Cell (WBC) Count 19.9 thou/uL (4.8-10.8)
[2018-05-04 04:20] LABS: INR-International Normal Ratio 1.2; Prothrombin Time 15.6 SEC (12.0-14.7)
[2018-05-04 04:34] LABS: ALT (SGPT) Less than 7 U/L (8-55); AST (SGOT) 12 U/L (5-34); Alkaline Phosphatase 129 U/L (40-150); Anion Gap 14 mmol/L (10-20); BUN (Urea Nitrogen) 8 mg/dL (7.0-18.7); Calc. Creatinine Clearance 95 mL/min (70-130); Calcium 8.1 mg/dL (7.8-10.44); Carbon Dioxide 24 mmol/L (22-29); Chloride 109 mmol/L (98-107); Estimated GFR-MDRD Greater than 90; Globulin 2.8 g/dL (2.4-3.5); Glucose 295 mg/dL (70-105); Potassium 3.4 mmol/L (3.5-5.1); Protein, Total 5.8 g/dL (6.0-8.3); Sodium 144 mmol/L (136-145)
[2018-05-04] MEDS: Furosemide 40 MG/4 ML VIAL SLOW IVP SCH ×2 (07:05→16:09)
[2018-05-04] MEDS: MEROPENEM 1 GM/50 ML 1 GM in Premix Bag 1 BAG IVPB SCH ×3 (07:05→21:18)
[2018-05-04] MEDS ORDERED: DC Sedation Protocol FS ONE (08:48)
--- NOTE | 2018-05-04 08:49 | RAD ---
CHEST ONE VIEW: HISTORY: Ventilated patient. COMPARISON: Radiograph from the prior day. FINDINGS: The patient is intubated with the endotracheal tube tip in good position. Enteric tube tip is in goo d position. Layering right moderate effusion with fluid within the right minor fissure. Low grade edema. IMPRESSION: Similar examination of the chest. POS: [facility]
[2018-05-04] MEDS: Lactated Ringer's 1,000 ML IV SCH (08:56)
--- NOTE | 2018-05-04 09:14 | PRG ---
DATE OF SERVICE: 05/04/2018 SUBJECTIVE: This morning, the patient is awake and alert. She is on 200 of fentanyl. Apparently, she is going to go for another washout on , 2 days from today. OBJECTIVE: VITAL SIGNS: Blood pressure is 120/80, sats are 98%, respiratory rate 18, pulse 80, and afebrile. CHEST: Reveals no wheezing or crackles. CARDIAC: Normal S1 and S2. No gallops. ABDOMEN: Soft. DIAGNOSTIC DATA: X-ray shows nonspecific right-sided infiltrate, may be a small pleural effusion. IMPRESSION: 1. Status post necrotizing fasciitis involving the groin. 2. Human immunodeficiency virus. 3. Severe deconditioning. 4. Anemia. PLAN: 1. We will try wean and extubate. 2. Otherwise, continue supportive care, PT. Antibiotics as per Infectious Disease. One hour for critical time. Job ID: [id number]
[2018-05-04] MEDS: Vancomycin HCl 500 MG in Sodium Chloride 0.9% 100 ML IVPB SCH ×2 (09:26→21:00)
[2018-05-04] MEDS: Pantoprazole 40 MG VIAL IVP SCH ×2 (09:36→21:19)
[2018-05-04] MEDS ORDERED: fentaNYL Citrate/PF 2,000 MCG in Sodium Chloride 0.9% 60 ML IV SCH (10:04)
[2018-05-04 10:22] LABS: Fungus Stain Final report (.)
[2018-05-04 10:42] LABS: Actual Bicarbonate (HCO3v) 16 mEq/L (22-28); Analyzer IN Cardio OR; Calcium, Ionized 1.14 mmol/L (1.16-1.32); Chloride (ABG LAB) 116 mmol/L (98-106); Hemoglobin (Hb) 11.7 g/dL (11.7-15.5); Potassium - ABG Lab 3.71 mmol/L (3.70-5.30); Sodium 132.6 mmol/L (133-146)
[2018-05-04 10:43] LABS: Actual Bicarbonate (HCO3v) 17 mEq/L (22-28); Analyzer IN Cardio OR; Base Excess -9.1 mEq/L (-2.0 to +3.0); Calcium, Ionized 1.11 mmol/L (1.16-1.32); Chloride (ABG LAB) 116 mmol/L (98-106); Hemoglobin (Hb) 9.1 g/dL (11.7-15.5); Potassium - ABG Lab 3.94 mmol/L (3.70-5.30); pH (venous) 7.25 (7.32-7.43)
--- NOTE | 2018-05-04 11:21 | PDOC.PN ---
- Subjective Encounter Start Date: 05/04/18 Encounter Start Time: 11:00 Subjective: on vent weaning -: awake, follows verbal stimuli - Objective Resuscitation Status - Order Detail: 04/26/18 08:43 Resuscitation Status Routine Resuscitation Status: FULL: Full Resuscitation Discussed with: patient RANDA Reviewed: Yes Vital Signs & Weight: Vital Signs (12 hours) Temp Pulse Pulse Pulse Resp BP BP 05/04/18 10:05 104 H 99 101/49 L 05/04/18 08:22 97 112/60 05/04/18 08:00 99.1 F 05/04/18 06:35 94 106/59 L 05/04/18 06:00 15 05/04/18 04:00 97.7 F 17 05/04/18 02:00 15 05/04/18 00:00 97.4 F L 12 BP Pulse Ox Pulse Ox 05/04/18 10:05 98/50 L 100 100 05/04/18 08:22 05/04/18 08:00 05/04/18 06:35 05/04/18 06:00 05/04/18 04:00 05/04/18 02:00 05/04/18 00:00 Weight Admit Weight 118 lb 4.8 oz Weight 131 lb 2.801 oz Most Recent Monitor Data Heart Rate from ECG 99 NIBP 98/50 NIBP BP-Mean 66 Respiration from ECG 13 SpO2 100 I&O: 05/03/18 05/04/18 05/05/18 06:59 06:59 06:59 Intake Total 2640 2563 Output Total 2459 9300 1027 [facility] -508 -2181 -1025 Result Diagrams: 05/04/18 04:10 05/04/18 03:30 Additional Labs: Accuchecks 05/04/18 05/04/18 05/03/18 09:12 04:11 18:22 POC Glucose 268 H 321 H 319 H 05/03/18 11:25 POC Glucose 196 H Phys Exam - Physical Examination HEENT: PERRLA, moist MMs Neck: no JVD, supple Respiratory: no wheezing, no rales Cardiovascular: RRR, no significant murmur Gastrointestinal: soft, positive bowel sounds mild distention+ no rigidity or guarding Musculoskeletal: pulses present, edema present Neurological: non-focal, moves all 4 limbs Psychiatric: A&O x 3 Dx/Plan (1) Acute respiratory failure with hypoxia Code(s): J96.01 - ACUTE RESPIRATORY FAILURE WITH HYPOXIA Status: Acute (2) Perirectal abscess Code(s): K61.1 - RECTAL ABSCESS Status: Acute Comment: nectrotising fascitis , S/p debridement x5. Continue Abx per ID recs. Wound vac. (3) SELENA (acute kidney injury) Code(s): N17.9 - ACUTE KIDNEY FAILURE, UNSPECIFIED Status: Resolved (4) Asthma Code(s): J45.909 - UNSPECIFIED ASTHMA, UNCOMPLICATED Status: Chronic Qualifiers: Asthma severity: mild Asthma persistence: intermittent Asthma complication type: uncomplicated Qualified Code(s): J45.20 - Mild intermittent asthma, uncomplicated (5) Diabetes Code(s): E11.9 - TYPE 2 DIABETES MELLITUS WITHOUT COMPLICATIONS Status: Chronic Qualifiers: Diabetes mellitus type: type 2 Diabetes mellitus rn long term care insulin use: with group home use Diabetes mellitus complication status: with unspecified complications Qualified Code(s): E11.8 - Type 2 diabetes mellitus with unspecified complications; 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 Comment: labile (6) HIV (human immunodeficiency virus infection) Status: Chronic Comment: Continue home anti-retrovirals, new level is 126 (7) Sepsis Code(s): A41.9 - SEPSIS, UNSPECIFIED ORGANISM Status: Acute Qualifiers: Sepsis type: Streptococcus, unspecified Qualified Code(s): A40.9 - Streptococcal sepsis, unspecified; A40 - Streptococcal sepsis (8) Anasarca Code(s): R60.1 - GENERALIZED EDEMA Status: Acute (9) Metabolic acidosis Code(s): E87.2 - ACIDOSIS Status: Resolved (10) Hypokalemia Code(s): E87.6 - HYPOKALEMIA Status: Resolved (11) Physical deconditioning Code(s): R53.81 - OTHER MALAISE Status: Acute (12) Severe protein-calorie malnutrition Code(s): E43 - UNSPECIFIED SEVERE PROTEIN-CALORIE MALNUTRITION Status: Acute (13) FTT (failure to thrive) in adult Status: Acute - Plan is weaning on vent -: will go for debridement on again -: is on meropenem and vanc -: continue anti HIV meds per -: has low alb with anasarca, getting ng feeding now * . Review of Systems - Medications/Allergies Allergies/Adverse Reactions: Allergies Allergy/AdvReac Type Severity Reaction Status Date / Time sulfamethoxazole Allergy Nausea Verified 05/03/13 15:27 [From Bactrim] trimethoprim [From Bactrim] Allergy Nausea Verified 05/03/13 15:27 Medications: Current Medications Ascorbic Acid (Vitamin C) 1,000 mg PO DAILY [facility] Last Admin: 05/03/18 08:36 Dose: 1,000 mg Dextrose/Water (Dextrose 50%) 25 gm SLOW IVP PRN PRN PRN Reason: Hypoglycemia Last Admin: 05/01/18 17:30 Dose: 25 gm Diphenhydramine HCl (Benadryl) 25 mg IVP Q3H PRN PRN Reason: Itching Diphenhydramine HCl (Benadryl) 25 mg PO Q3H PRN PRN Reason: Itching Diphenhydramine HCl (Benadryl) 25 mg IM Q3H PRN PRN Reason: Itching Etravirine (Intelence) 200 mg PO BID-PC [facility] Last Admin: 05/03/18 17:52 Dose: 200 mg Furosemide (Lasix) 20 mg SLOW IVP 0600,1400 [facility] Last Admin: 05/04/18 07:05 Dose: 20 mg Glucagon (Glucagon) 1 mg IM PRN PRN PRN Reason: Hypoglycemia Dextrose/Water (D5w) 1,000 mls @ 0 mls/hr IV .Q0M PRN PRN Reason: Hypoglycemia Vancomycin HCl 500 mg/ Sodium (Chloride) 100 mls @ 100 mls/hr IVPB 0900,2100 [facility] Last Admin: 05/04/18 09:26 Dose: 100 mls Meropenem 1 gm/ Device 50 mls @ 100 mls/hr IVPB Q8HR [facility] Last Admin: 05/04/18 07:05 Dose: 50 mls Potassium Chloride 40 meq/ (Sodium Chloride) 270 mls @ 135 mls/hr IVPB ASDIR PRN PRN Reason: FOR SERUM K+ 2.5 - 3.5 Potassium Chloride 40 meq/ (Device) 100 mls @ 50 mls/hr IVPB ASDIR PRN PRN Reason: FOR SERUM K+ 2.5 - 3.5 Last Admin: 05/03/18 09:10 Dose: 100 mls Magnesium Sulfate 1 gm/ Sodium (Chloride) 102 mls @ 102 mls/hr IV PRN PRN PRN Reason: MAG LEVEL 1.4 - 2.0 Magnesium Sulfate 2 gm/ Device 100 mls @ 100 mls/hr IVPB ASDIR PRN PRN Reason: MAGNESIUM < 1.4 Potassium Phosphate 9 mmol/ (Sodium Chloride) 103 mls @ 25.75 mls/hr IVPB ASDIR PRN PRN Reason: Phosphate 1.0-1.8 Potassium Phosphate 12 mmol/ (Sodium Chloride) 254 mls @ 63.5 mls/hr IV ASDIR PRN PRN Reason: Serum phosphate 0.5-0.9 Potassium Phosphate 15 mmol/ (Sodium Chloride) 255 mls @ 63.75 mls/hr IV ASDIR PRN PRN Reason: Serum Phos < 0.5 Lactated Ringer's (Lactated Ringer's) 1,000 mls @ 50 mls/hr IV .Q20H [facility] Last Admin: 05/04/18 08:56 Dose: 1,000 mls Fentanyl Citrate 2,000 mcg/ (Sodium Chloride) 100 mls @ 2.5 mls/hr IV INF [facility] Stop: 06/03/18 10:04 Insulin Human Lispro (Humalog) 0 units SC .AGGRESSIVE SLIDING PRN PRN Reason: Aggressive Correctional Scale Last Admin: 05/04/18 09:26 Dose: 9 unit Lamivudine (Epivir Oral Solution) 150 mg PER TUBE BID [facility] Last Admin: 05/03/18 20:38 Dose: 150 mg Lopinavir/Ritonavir (Kaletra) 400 mg PER TUBE BID [facility] Last Admin: 05/03/18 21:35 Dose: 400 mg Magnesium Oxide (Magnesium Oxide) 400 mg PO BIDPRN PRN PRN Reason: FOR SERUM MAG 1.4 - 2.0 Magnesium Oxide (Magnesium Oxide) 800 mg PO PRN PRN PRN Reason: FOR SERUM MAG < 1.4 Miscellaneous Medication (Pharmacy To Dose) 1 each IVPB PRN PRN PRN Reason: Pharmacy to dose Miscellaneous Medication (Phos-Nak) 1 pkt PO TIDPRN PRN PRN Reason: FOR PHOS LEVEL 1.0 - 1.8 Miscellaneous Medication (Phos-Nak) 2 pkt PO TIDPRN PRN PRN Reason: FOR PHOS LEVEL 0.5 - 1.0 Multivitamins (Theragran) 1 tab PO DAILY [facility] Last Admin: 05/03/18 08:37 Dose: 1 tab Naloxone HCl (Narcan) 0.2 mg IV Q5MIN PRN PRN Reason: Opiate Reversal Ccu Electrolyte (Replacement Protocol) 0 each FS PRN PRN PRN Reason: FOR ELECTROLYTE REPLACEMENT Ondansetron HCl (Zofran) 4 mg IVP Q6H PRN PRN Reason: Nausea/Vomiting Pantoprazole Sodium (Protonix) 40 mg IVP Q12HR [facility] Last Admin: 05/04/18 09:36 Dose: 40 mg Polyethylene Glycol (Miralax) 17 gm PO DAILY [facility] Last Admin: 05/03/18 08:38 Dose: Not Given Potassium Chloride (K-Dur) 40 meq PO ASDIR PRN PRN Reason: FOR SERUM K+ 2.5 - 3.5 Potassium Chloride (Klor-Con) 40 meq PER TUBE ASDIR PRN PRN Reason: FOR SERUM K+ 2.5-3.5 Promethazine HCl (Phenergan) 12.5 mg IM Q4H PRN PRN Reason: Nausea/Vomiting Sodium Chloride (Flush - Normal Saline) 10 ml IVF Q12HR [facility] Last Admin: 05/04/18 09:36 Dose: 10 ml Sodium Chloride (Flush - Normal Saline) 10 ml IVF PRN PRN PRN Reason: Saline Flush Zinc Sulfate (Zinc Sulfate) 220 mg PO DAILY [facility] Last Admin: 05/03/18 08:37 Dose: 220 mg
[2018-05-04] MEDS: Multivit, Therapeutic 1 TAB PO SCH (14:54)
[2018-05-04] MEDS: Ascorbic Acid 500 mg Chewable Tablet PO SCH (14:54)
[2018-05-04] MEDS: Zinc Sulfate 220 MG CAP PO SCH (14:55)
[2018-05-04] MEDS: Lopinavir/Ritonavir 80 MG/20 MG per ML Oral Solution PER TUBE SCH ×2 (14:55→21:19)
[2018-05-04] MEDS: Polyethylene Glycol 3350 17 GM Packet PO SCH (14:55)
--- NOTE | 2018-05-04 19:08 | PRG ---
DATE OF SERVICE: 05/04/2018 SUBJECTIVE: Cortney Baez extubated this morning. She looks good. She communicates appropriately. OBJECTIVE: VITAL SIGNS: Heart rate 89, blood pressure 120/71. LUNGS: Clear to auscultation. CARDIAC: Regular rate and rhythm without murmur or gallop. ABDOMEN: Soft. Colostomy, healthy, good output. EXTREMITIES: Unremarkable. Wound VAC on her wound, sacral perineal. LABORATORY DATA: White count 19, hemoglobin 7.6, platelet count 477,000. Basic metabolic profile normal. ASSESSMENT AND PLAN: 1. Respiratory failure, status post extubation, doing well. 2. Wound, buttock, sacral. Continue wound VAC. I have scheduled for the operating room, morning at 0730 hours, change her wound VAC under sedation or anesthesia. For anesthesia, I have also scheduled for the same on Thursday at 0800 hours and next week Thursday at about 11:00 a.m. I have communicated with Wound Care and then be available to replace her wound VAC. 3. Human immunodeficiency virus, poor compliance. 4. Anemia, observe. Job ID: [id number]
[2018-05-04 20:42] LABS: Vancomycin, Trough 12.1 ug/mL
[2018-05-04] MEDS: Vancomycin HCl 750 MG in Sodium Chloride 0.9% 250 ML 250 ML IVPB SCH (21:17)
[2018-05-05] MEDS: HumaLOG 300 UNITS/3 ML VIAL SC PRN ×3 (01:59→17:39)
[2018-05-05] MEDS ORDERED: Morphine 2 MG/ML SYRINGE SLOW IVP SCH ×2 (02:00→05:45)
[2018-05-05] MEDS: Lactated Ringer's 1,000 ML IV SCH (03:01)
[2018-05-05 04:38] LABS: #Eosinphils 0.1 thou/uL (0.0-0.7); %Basophils 0.2 % (0.0-1.0); %Eosinophils 0.6 % (0.0-10.0); %Lymphocytes 6.4 % (21.0-51.0); %Monocytes 6.1 % (0.0-10.0); %Neutrophils 86.7 % (42.0-75.0); Hemoglobin 7.3 g/dL (12.0-16.0); Mean Corpuscular HGB CONC 32.8 g/dL (32.0-36.0); Mean Corpuscular Hemoglobin 28.6 pg (27.0-31.0); Mean Corpuscular Volume 87.4 fL (78.0-98.0); Platelet Count 461 thou/uL (130-400); RBC Distribution Width 13.4 % (11.5-14.5); Red Blood Cell (RBC) Count 2.54 mill/uL (4.20-5.40); White Blood Cell (WBC) Count 16.2 thou/uL (4.8-10.8)
[2018-05-05 04:42] LABS: ALT (SGPT) 8 U/L (8-55); AST (SGOT) 18 U/L (5-34); Albumin 2.7 g/dL (3.5-5.0); Alkaline Phosphatase 118 U/L (40-150); Anion Gap 8 mmol/L (10-20); BUN (Urea Nitrogen) 8 mg/dL (7.0-18.7); Bilirubin, Total 0.6 mg/dL (0.2-1.2); Calc. Creatinine Clearance 101 mL/min (70-130); Calcium 8.1 mg/dL (7.8-10.44); Carbon Dioxide 34 mmol/L (22-29); Chloride 105 mmol/L (98-107); Estimated GFR-MDRD Greater than 90; Globulin 3.2 g/dL (2.4-3.5); Glucose 89 mg/dL (70-105); Protein, Total 5.9 g/dL (6.0-8.3); Sodium 144 mmol/L (136-145)
[2018-05-05] MEDS: Furosemide 40 MG/4 ML VIAL SLOW IVP SCH ×2 (05:30→14:17)
[2018-05-05] MEDS: MEROPENEM 1 GM/50 ML 1 GM in Premix Bag 1 BAG IVPB SCH ×3 (05:31→21:22)
[2018-05-05] MEDS: Pantoprazole 40 MG VIAL IVP SCH (07:47)
[2018-05-05] MEDS: Multivit, Therapeutic 1 TAB PO SCH (07:48)
[2018-05-05] MEDS: Ascorbic Acid 500 mg Chewable Tablet PO SCH (07:48)
[2018-05-05] MEDS: Zinc Sulfate 220 MG CAP PO SCH (07:48)
[2018-05-05] MEDS: Lopinavir/Ritonavir 80 MG/20 MG per ML Oral Solution PER TUBE SCH ×2 (07:53→21:16)
[2018-05-05] MEDS: Vancomycin HCl 750 MG in Sodium Chloride 0.9% 250 ML 250 ML IVPB SCH ×2 (08:03→21:15)
--- NOTE | 2018-05-05 08:15 | PRG ---
DATE OF SERVICE: 05/04/2018 SUBJECTIVE: She is still in the ICU. She has been extubated. She is oriented, follows commands. Denies headaches. No respiratory symptoms. No abdominal pain. Mild pain at the surgical site. T-max 100 platelets 477. Awake, oriented, no distress. EOMI, oral cavity moist, no thrush. Bilat clear lung sounds. S1S2, soft abdomen. Neuro non focal. Renal function normal. Currently on etravirine, lamivudine, Kaletra, and meropenem. Repeat chest x-ray with moderate effusion on the right side and low-grade edema. ASSESSMENT AND DISCUSSION: Longstanding human immunodeficiency virus infection with erratic adherence to antiretroviral therapy and low CD4 cell count with necrotizing infection. Over the past few months, compliance has improved somewhat and the CD4 cell count has gone up to double what it was before. She now is extubated and hopefully will continue improving. She has a colostomy and will need extensive wound management, may need a plastic surgery consultation for grafting. Continue antiretroviral therapy and pneumocystis prophylaxis. Job ID: [id number] [facility]
[2018-05-05] MEDS ORDERED: Morphine 4 MG/ML VIAL SLOW IVP PRN (08:20)
--- NOTE | 2018-05-05 08:58 | RAD ---
PORTABLE SEMIUPRIGHT FRONTAL CHEST RADIOGRAPH: 05/05/2018 HISTORY: Ventilated CCU patient. COMPARISON: 05/04/2018 FINDINGS: The endotracheal tube and nasogastric tube, present on the prior examination, have been removed. Lef t-sided vascular catheter present, distal tip overlying the expected location of the proximal right a trium, stable. No pneumothorax. Hazy density in the right base suggests a combination of mild air s pace disease and small volume pleural fluid, stable. Mild patchy nonspecific opacity noted in the me dial left lung base. IMPRESSION: 1. Patchy bibasilar opacities, as detailed above. 2. Interval removal of endotracheal tube and nasogastric tube. POS: [facility]
--- NOTE | 2018-05-05 09:18 | PRG ---
DATE OF SERVICE: 05/05/2018 SUBJECTIVE: Cortney Baez is awake, alert, and responsive, eating breakfast, she is better, less short of breath. She was extubated yesterday. No respiratory distress. She is scheduled to go for a washout tomorrow. OBJECTIVE: VITAL SIGNS: Blood pressure is 116/74, saturations are 95% on room air, respiratory rate 18, and pulse 80. CHEST: Decreased breath sounds. No wheezing. CARDIAC: Normal S1 and S2. No gallops. ABDOMEN: No masses. LABORATORY DATA: Hemoglobin and hematocrit of 7.3 and 22, white count 16,000. IMPRESSION: 1. Necrotizing fasciitis. 2. Severe deconditioning. 3. Human immunodeficiency virus. PLAN: 1. Morphine p.r.n. for pain. 2. Antibiotics as per Infectious Disease. 3. Continue supportive care. Prognosis is guarded. We will follow while in the ICU. Job ID: [id number]
[2018-05-05] MEDS: Polyethylene Glycol 3350 17 GM Packet PO SCH (10:03)
[2018-05-05] MEDS ORDERED: oxyCODONE 5 MG TAB PO SCH (12:00)
[2018-05-05] MEDS: fentaNYL Citrate/PF 2,000 MCG in Sodium Chloride 0.9% 60 ML IV PRN (13:42)
--- NOTE | 2018-05-05 15:03 | PRG ---
DATE OF SERVICE: 05/05/2018 SUBJECTIVE: Cortney Baez is doing well today. She is eating. She is sitting upright in a chair. Her pain is well controlled. OBJECTIVE: VITAL SIGNS: Blood pressure 107/74, heart rate 92, and respiratory rate 20. LUNGS: Clear to auscultation. CARDIAC: Regular rate and rhythm without murmur or gallop. ABDOMEN: Soft and nontender. Wound VAC on wound. LABORATORY DATA: White count 16 and hemoglobin 7.3. Basic metabolic profile normal. Normal renal function. ASSESSMENT AND PLAN: Doing well. Plan to transfer to the floor today. We will continue regular diet with dietary supplements. Arrangements for rehab should be initiated. We will transfer to the floor today. Tomorrow morning planning wound VAC change in the OR under sedation, n.p.o. after midnight tonight. This will be done at 7:30 in the morning. We will then plan wound VAC change and irrigation again on Thursday and again on next Thursday. This could be done as an outpatient from rehab. If she is approved, then she could be transferred later this week or next week. In addition, a Amaro catheter will be placed for long-term IV antibiotic administration. Her colostomy is functioning well. Job ID: [id number]
--- NOTE | 2018-05-05 15:25 | PDOC.PN ---
- Subjective Encounter Start Date: 05/05/18 Encounter Start Time: 10:00 Subjective: pt up in bed has significant pain - Objective Resuscitation Status - Order Detail: 04/26/18 08:43 Resuscitation Status Routine Resuscitation Status: FULL: Full Resuscitation Discussed with: patient Vital Signs & Weight: Vital Signs (12 hours) Temp Pulse Pulse BP BP Pulse Ox Pulse Ox 05/05/18 11:00 97.9 F 90 89 124/81 134/88 99 05/05/18 10:15 86 89 119/73 120/84 99 05/05/18 08:00 98 05/05/18 07:00 98.2 F 05/05/18 04:00 97.8 F Pulse Ox 05/05/18 11:00 100 05/05/18 10:15 97 05/05/18 08:00 05/05/18 07:00 05/05/18 04:00 Weight Admit Weight 118 lb 4.8 oz Weight 123 lb 10.869 oz Most Recent Monitor Data Heart Rate from ECG 87 NIBP 96/63 NIBP BP-Mean 74 Respiration from ECG 16 SpO2 100 I&O: 05/04/18 05/05/18 05/06/18 06:59 06:59 06:59 Intake Total 2563 3719 120 Output Total 7331 5918 9633 [facility]2188 -824 -8523 Result Diagrams: 05/05/18 04:22 05/05/18 04:22 Additional Labs: Accuchecks 05/05/18 05/05/18 05/05/18 11:57 04:08 01:39 POC Glucose 446 H 100 240 H 05/04/18 05/04/18 22:49 16:51 POC Glucose 330 H 217 H Phys Exam - Physical Examination Neck: no nodes, no JVD, supple, full ROM Respiratory: no wheezing, no rales, no rhonchi, wheezing present, clear to auscultation bilateral Gastrointestinal: soft, non-tender, no distention, positive bowel sounds Musculoskeletal: no edema, pulses present, edema present Neurological: non-focal, normal sensation, moves all 4 limbs Dx/Plan (1) Acute respiratory failure with hypoxia Code(s): J96.01 - ACUTE RESPIRATORY FAILURE WITH HYPOXIA Status: Acute (2) Perirectal abscess Code(s): K61.1 - RECTAL ABSCESS Status: Acute Comment: nectrotising fascitis , S/p debridement x5. Continue Abx per ID recs. Wound vac. (3) Acute renal failure Status: Acute Comment: Continue IVF. Improving. (4) HIV (human immunodeficiency virus infection) Status: Chronic Comment: Continue home anti-retrovirals, new level is 126 (5) Severe protein-calorie malnutrition Code(s): E43 - UNSPECIFIED SEVERE PROTEIN-CALORIE MALNUTRITION Status: Acute - Plan will continue iv abx -: will add fentanyl patch since pt has a lot of pain -: pt already on supplement -: will continue antiviral meds * . Review of Systems - Review of Systems Respiratory: negative: Cough, Dry, Shortness of Breath, Hemoptysis, SOB with Excertion, Pleuritic Pain, Sputum, Wheezing Cardiovascular: negative: chest pain, palpitations, orthopnea, paroxysmal nocturnal dyspnea, edema, light headedness, other Gastrointestinal: Abdominal Pain Musculoskeletal: negative: Neck Pain, Shoulder Pain, Arm Pain, Back Pain, Hand Pain, Leg Pain, Foot Pain, Other - Medications/Allergies Allergies/Adverse Reactions: Allergies Allergy/AdvReac Type Severity Reaction Status Date / Time sulfamethoxazole Allergy Nausea Verified 05/03/13 15:27 [From Bactrim] trimethoprim [From Bactrim] Allergy Nausea Verified 05/03/13 15:27 Medications: Current Medications Acetaminophen (Tylenol) 1,000 mg PO Q6H PRN PRN Reason: Moderate to Severe Pain (6-10) Ascorbic Acid (Vitamin C) 1,000 mg PO DAILY [facility] Last Admin: 05/05/18 07:48 Dose: 1,000 mg Dextrose/Water (Dextrose 50%) 25 gm SLOW IVP PRN PRN PRN Reason: Hypoglycemia Last Admin: 05/01/18 17:30 Dose: 25 gm Diphenhydramine HCl (Benadryl) 25 mg IVP Q3H PRN PRN Reason: Itching Diphenhydramine HCl (Benadryl) 25 mg PO Q3H PRN PRN Reason: Itching Diphenhydramine HCl (Benadryl) 25 mg IM Q3H PRN PRN Reason: Itching Etravirine (Intelence) 200 mg PO BID-PC [facility] Last Admin: 05/05/18 07:51 Dose: 200 mg Glucagon (Glucagon) 1 mg IM PRN PRN PRN Reason: Hypoglycemia Dextrose/Water (D5w) 1,000 mls @ 0 mls/hr IV .Q0M PRN PRN Reason: Hypoglycemia Meropenem 1 gm/ Device 50 mls @ 100 mls/hr IVPB Q8HR [facility] Last Admin: 05/05/18 15:11 Dose: 50 mls Magnesium Sulfate 1 gm/ Sodium (Chloride) 102 mls @ 102 mls/hr IV PRN PRN PRN Reason: MAG LEVEL 1.4 - 2.0 Vancomycin HCl 750 mg/ Sodium (Chloride) 250 mls @ 250 mls/hr IVPB Q12HR [facility] Last Admin: 05/05/18 08:03 Dose: 250 mls Fentanyl Citrate 2,000 mcg/ (Sodium Chloride) 100 mls @ 0 mls/hr IV INF PRN PRN Reason: Pain Last Admin: 05/05/18 13:42 Dose: 100 mls Insulin Human Lispro (Humalog) 0 units SC .AGGRESSIVE SLIDING PRN PRN Reason: Aggressive Correctional Scale Last Admin: 05/05/18 11:59 Dose: 13 unit Lamivudine (Epivir Oral Solution) 150 mg PER TUBE BID [facility] Last Admin: 05/05/18 07:51 Dose: 150 mg Lopinavir/Ritonavir (Kaletra) 400 mg PER TUBE BID [facility] Last Admin: 05/05/18 07:53 Dose: 400 mg Magnesium Oxide (Magnesium Oxide) 400 mg PO BIDPRN PRN PRN Reason: FOR SERUM MAG 1.4 - 2.0 Magnesium Oxide (Magnesium Oxide) 800 mg PO PRN PRN PRN Reason: FOR SERUM MAG < 1.4 Miscellaneous Medication (Pharmacy To Dose) 1 each IVPB PRN PRN PRN Reason: Pharmacy to dose Multivitamins (Theragran) 1 tab PO DAILY [facility] Last Admin: 05/05/18 07:48 Dose: 1 tab Naloxone HCl (Narcan) 0.2 mg IV Q5MIN PRN PRN Reason: Opiate Reversal Ccu Electrolyte (Replacement Protocol) 0 each FS PRN PRN PRN Reason: FOR ELECTROLYTE REPLACEMENT Ondansetron HCl (Zofran) 4 mg IVP Q6H PRN PRN Reason: Nausea/Vomiting Pantoprazole Sodium (Protonix) 40 mg PO DAILY [facility] Polyethylene Glycol (Miralax) 17 gm PO DAILY [facility] Last Admin: 05/05/18 10:03 Dose: Not Given Potassium Chloride (K-Dur) 40 meq PO ASDIR PRN PRN Reason: FOR SERUM K+ 2.5 - 3.5 Sodium Chloride (Flush - Normal Saline) 10 ml IVF Q12HR [facility] Last Admin: 05/05/18 07:47 Dose: 10 ml Sodium Chloride (Flush - Normal Saline) 10 ml IVF PRN PRN PRN Reason: Saline Flush Zinc Sulfate (Zinc Sulfate) 220 mg PO DAILY [facility] Last Admin: 05/05/18 07:48 Dose: 220 mg
[2018-05-06] MEDS: MEROPENEM 1 GM/50 ML 1 GM in Premix Bag 1 BAG IVPB SCH ×3 (06:10→22:04)
[2018-05-06] MEDS ORDERED: KETAMINE 100 MG/ML (5ML VIAL) ONE (08:12)
[2018-05-06] MEDS ORDERED: Midazolam HCl 2 mg/2 ml Vial ONE (08:12)
[2018-05-06] MEDS ORDERED: Heparin 10,000 UNITS/1 ML VIAL ONE (08:17)
[2018-05-06] MEDS ORDERED: Lidocaine 2% PF 5 ML VIAL ONE (08:17)
[2018-05-06] MEDS ORDERED: Bupivacaine HCl 0.5%/Epinephrine 1:200,000/PF 30 ml Vial ONE (08:17)
[2018-05-06] MEDS ORDERED: Sodium Chloride 0.9% 20 ML ONE (08:17)
--- NOTE | 2018-05-06 09:14 | RAD ---
CHEST 1 VIEW: Date: 05/06/18 HISTORY: Ventilated patient. COMPARISON: Radiograph prior day. FINDINGS: Subclavian central venous catheter is similar. Patient rotated to left. Layering effusions. Bibasilar air space opacities. No pneumothorax. Cardiomediastinal silhouette is similar appearing. IMPRESSION: Similar examination of chest. POS: [facility]
--- NOTE | 2018-05-06 12:07 | OP ---
DATE OF PROCEDURE: 05/06/2018 PREOPERATIVE DIAGNOSES: Necrotizing fasciitis, sacral area, perineum, perianal, buttocks, in need of better IV access, human immunodeficiency virus-positive, immunosuppressed. PROCEDURES PERFORMED: 1. Right subclavian vein Amaro triple-lumen catheter. 2. Debridement, washout, necrotizing fasciitis wound, sacral, buttocks, perianal area, perineum. Note that the wound is granulating, looks much better. No active infection noted. ANESTHESIA: TIVA, local of 0.5% Marcaine with epinephrine 30 mL mixed with 2% Xylocaine 10 mL. DESCRIPTION OF PROCEDURE: The patient was taken to the operating room under intravenous sedation, Ketamine, her neck and chest were prepared with ChloraPrep, draped in routine fashion. Local anesthetic mixture of 0.5% Marcaine with epinephrine 30 mL mixed with 2% Xylocaine 10 mL, infiltrated into the skin and subcutaneous tissue about the operative site. I initially tried ultrasound-guided cannulation of the internal jugular vein, was able to do so, but she moved around so much and was coughing that carotid artery cannulation and hematoma resulted and this abandoned. The right subclavian vein approach was used cannulating the subclavian vein, inserted the J-wire, removing the trocar and catheter. Skin was incised and enlarged sharply. Dilator and Peel-Away sheath placed over the J-wire into the superior vena cava. Dilator and J-wire were removed. Catheter was placed Peel-Away sheath, placed in the fabric cuff beneath the skin exit site and Peel-Away sheath removed. Fluoroscopically, catheter noted to be in good position. The catheter was secured with 2 sutures of 3-0 nylon and each port aspirated blood, flushed with heparinized saline solution. The patient was then positioned in the right lateral decubitus position. Wound VAC removed and the large wound involving both buttocks, perianal area, perineum, and sacral were debrided sharply after Betadine prep. It was pulse irrigated. Wound Care team placed a wound VAC. The patient tolerated the procedure well. Job ID: [id number]
[2018-05-06] MEDS: Lopinavir/Ritonavir 80 MG/20 MG per ML Oral Solution PER TUBE SCH ×2 (12:42→22:04)
[2018-05-06] MEDS: Ascorbic Acid 500 mg Chewable Tablet PO SCH (12:42)
[2018-05-06] MEDS: Pantoprazole 40 MG GRANULES PACKET PO SCH (12:42)
[2018-05-06] MEDS: Multivit, Therapeutic 1 TAB PO SCH (12:42)
[2018-05-06] MEDS: Zinc Sulfate 220 MG CAP PO SCH (12:43)
[2018-05-06] MEDS: Vancomycin HCl 750 MG in Sodium Chloride 0.9% 250 ML 250 ML IVPB SCH ×2 (12:43→22:03)
[2018-05-06] MEDS: Polyethylene Glycol 3350 17 GM Packet PO SCH (12:43)
--- NOTE | 2018-05-06 13:48 | RAD ---
RADIOGRAPH CHEST 1 VIEW: DATE: 05-06-18 TIME: 12:30 p.m. HISTORY: 37-year-old female status post Amaro catheter placement. COMPARISON: 05-06-18 at 7:06 a.m. FINDINGS: There are no air space densities, pulmonary edema, pneumothorax, or cardiomegaly. The lateral costop hrenic angles are sharp. Again noted is the left subclavian central venous catheter with distal tip o verlying the right atrium. There is now a new right subclavian double lumen central vascular catheter with distal tip overlying the expected location of the mid portion of the SVC. IMPRESSION: 1. No acute cardiopulmonary findings. 2. Interval placement of right subclavian double lumen central vascular catheter without pneumothorax . jn POS: [facility]
[2018-05-06] MEDS: fentaNYL Citrate/PF 2,000 MCG in Sodium Chloride 0.9% 60 ML IV PRN (13:49)
[2018-05-06 20:26] LABS: Vancomycin, Trough 8.7 ug/mL
[2018-05-06] MEDS ORDERED: Ondansetron PF 4 MG/2 ML Vial ONE (22:27)
[2018-05-06] MEDS ORDERED: PROPOFOL 200 MG/20 ML VIAL ONE (22:27)
[2018-05-06] MEDS ORDERED: Glycopyrrolate 0.2 MG/ML 5 ML SYRINGE ONE (22:27)
[2018-05-07] MEDS: MEROPENEM 1 GM/50 ML 1 GM in Premix Bag 1 BAG IVPB SCH ×3 (05:57→21:57)
[2018-05-07] MEDS: Vancomycin HCl 750 MG in Sodium Chloride 0.9% 250 ML 250 ML IVPB SCH ×3 (05:59→21:57)
[2018-05-07] MEDS: HumaLOG 300 UNITS/3 ML VIAL SC PRN ×2 (06:04→16:55)
--- NOTE | 2018-05-07 06:29 | PDOC.PN ---
- Subjective Encounter Start Date: 05/06/18 Encounter Start Time: 13:50 Subjective: pt up in bed mother at bedsid, pt eating - Objective Resuscitation Status - Order Detail: 04/26/18 08:43 Resuscitation Status Routine Resuscitation Status: FULL: Full Resuscitation Discussed with: patient Vital Signs & Weight: Vital Signs (12 hours) Temp Pulse Resp BP Pulse Ox 05/06/18 20:00 99.8 F H 97 16 102/63 100 Weight Admit Weight 118 lb 4.8 oz Weight 126 lb 5.198 oz Most Recent Monitor Data Heart Rate from ECG 85 NIBP 111/73 NIBP BP-Mean 85 Respiration from ECG 19 SpO2 99 I&O: 05/05/18 05/06/18 05/07/18 06:59 06:59 06:59 Intake Total 3719 1426 Output Total 4200 6690 Balance -734 -5038 Result Diagrams: 05/05/18 04:22 05/05/18 04:22 Additional Labs: Accuchecks 05/07/18 05/07/18 05/06/18 05:08 00:47 20:53 POC Glucose 374 H 335 H 327 H 05/06/18 05/06/18 16:46 12:12 POC Glucose 308 H 290 H Phys Exam - Physical Examination Neck: no nodes, no JVD, supple, full ROM Respiratory: no wheezing, no rales, no rhonchi, wheezing present, clear to auscultation bilateral Cardiovascular: RRR, no significant murmur, no rub, gallop, irregular Gastrointestinal: soft, non-tender, no distention, positive bowel sounds Dx/Plan (1) Acute respiratory failure with hypoxia Code(s): J96.01 - ACUTE RESPIRATORY FAILURE WITH HYPOXIA Status: Acute (2) Perirectal abscess Code(s): K61.1 - RECTAL ABSCESS Status: Acute Comment: nectrotising fascitis , S/p debridement x5. Continue Abx per ID recs. Wound vac. (3) Acute renal failure Status: Acute Comment: Continue IVF. Improving. (4) HIV (human immunodeficiency virus infection) Status: Chronic Comment: Continue home anti-retrovirals, new level is 126 (5) Severe protein-calorie malnutrition Code(s): E43 - UNSPECIFIED SEVERE PROTEIN-CALORIE MALNUTRITION Status: Acute - Plan pt underwent another debridement -: pt on lime sludge mixer now for pain -: will continue abx and antiviral * . Review of Systems - Review of Systems Respiratory: negative: Cough, Dry, Shortness of Breath, Hemoptysis, SOB with Excertion, Pleuritic Pain, Sputum, Wheezing Cardiovascular: negative: chest pain, palpitations, orthopnea, paroxysmal nocturnal dyspnea, edema, light headedness, other Gastrointestinal: negative: Nausea, Vomiting, Abdominal Pain, Diarrhea, Constipation, Melena, Hematochezia, Other - Medications/Allergies Allergies/Adverse Reactions: Allergies Allergy/AdvReac Type Severity Reaction Status Date / Time sulfamethoxazole Allergy Nausea Verified 05/03/13 15:27 [From Bactrim] trimethoprim [From Bactrim] Allergy Nausea Verified 05/03/13 15:27 Medications: Current Medications Acetaminophen (Tylenol) 1,000 mg PO Q6H PRN PRN Reason: Moderate to Severe Pain (6-10) Ascorbic Acid (Vitamin C) 1,000 mg PO DAILY [facility] [place] Last Admin: 05/06/18 12:42 Dose: Not Given Dextrose/Water (Dextrose 50%) 25 gm SLOW IVP PRN PRN PRN Reason: Hypoglycemia Last Admin: 05/01/18 17:30 Dose: 25 gm Diphenhydramine HCl (Benadryl) 25 mg IVP Q3H PRN PRN Reason: Itching Diphenhydramine HCl (Benadryl) 25 mg PO Q3H PRN PRN Reason: Itching Diphenhydramine HCl (Benadryl) 25 mg IM Q3H PRN PRN Reason: Itching Etravirine (Intelence) 200 mg PO BID-PC [facility] [place] Last Admin: 05/06/18 17:34 Dose: 200 mg Glucagon (Glucagon) 1 mg IM PRN PRN PRN Reason: Hypoglycemia Dextrose/Water (D5w) 1,000 mls @ 0 mls/hr IV .Q0M PRN PRN Reason: Hypoglycemia Meropenem 1 gm/ Device 50 mls @ 100 mls/hr IVPB Q8HR [facility] Last Admin: 05/07/18 05:57 Dose: 50 mls Magnesium Sulfate 1 gm/ Sodium (Chloride) 102 mls @ 102 mls/hr IV PRN PRN PRN Reason: MAG LEVEL 1.4 - 2.0 Fentanyl Citrate 2,000 mcg/ (Sodium Chloride) 100 mls @ 0 mls/hr IV INF PRN PRN Reason: Pain Last Admin: 05/06/18 13:49 Dose: 100 mls Vancomycin HCl 750 mg/ Sodium (Chloride) 250 mls @ 250 mls/hr IVPB Q8HR [facility] [place] Last Admin: 05/07/18 05:59 Dose: 250 mls Insulin Human Lispro (Humalog) 0 units SC .AGGRESSIVE SLIDING PRN PRN Reason: Aggressive Correctional Scale Last Admin: 05/07/18 06:04 Dose: 11 unit Lamivudine (Epivir Oral Solution) 150 mg PER TUBE BID [facility] [place] Last Admin: 05/06/18 22:04 Dose: 150 mg Lopinavir/Ritonavir (Kaletra) 400 mg PER TUBE BID [facility] Last Admin: 05/06/18 22:04 Dose: 400 mg Magnesium Oxide (Magnesium Oxide) 400 mg PO BIDPRN PRN PRN Reason: FOR SERUM MAG 1.4 - 2.0 Magnesium Oxide (Magnesium Oxide) 800 mg PO PRN PRN PRN Reason: FOR SERUM MAG < 1.4 Miscellaneous Medication (Pharmacy To Dose) 1 each IVPB PRN PRN PRN Reason: Pharmacy to dose Multivitamins (Theragran) 1 tab PO DAILY [facility] Last Admin: 05/06/18 12:42 Dose: Not Given Naloxone HCl (Narcan) 0.2 mg IV Q5MIN PRN PRN Reason: Opiate Reversal Ccu Electrolyte (Replacement Protocol) 0 each FS PRN PRN PRN Reason: FOR ELECTROLYTE REPLACEMENT Ondansetron HCl (Zofran) 4 mg IVP Q6H PRN PRN Reason: Nausea/Vomiting Pantoprazole Sodium (Protonix) 40 mg PO DAILY [facility] [place] Last Admin: 05/06/18 12:42 Dose: Not Given Polyethylene Glycol (Miralax) 17 gm PO DAILY [facility] [place] Last Admin: 05/06/18 12:43 Dose: Not Given Potassium Chloride (K-Dur) 40 meq PO ASDIR PRN PRN Reason: FOR SERUM K+ 2.5 - 3.5 Sodium Chloride (Flush - Normal Saline) 10 ml IVF Q12HR [facility] [place] Last Admin: 05/06/18 22:04 Dose: Not Given Sodium Chloride (Flush - Normal Saline) 10 ml IVF PRN PRN PRN Reason: Saline Flush Zinc Sulfate (Zinc Sulfate) 220 mg PO DAILY [facility] Last Admin: 05/06/18 12:43 Dose: Not Given
[2018-05-07] MEDS: Pantoprazole 40 MG GRANULES PACKET PO SCH (08:24)
[2018-05-07] MEDS: Ascorbic Acid 500 mg Chewable Tablet PO SCH (08:24)
[2018-05-07] MEDS: Multivit, Therapeutic 1 TAB PO SCH (08:24)
[2018-05-07] MEDS: Zinc Sulfate 220 MG CAP PO SCH (08:24)
[2018-05-07] MEDS: Polyethylene Glycol 3350 17 GM Packet PO SCH (08:25)
--- NOTE | 2018-05-07 08:43 | RAD ---
PORTABLE CHEST 1 VIEW: Date; 05/07/18 Time: 0626 hours HISTORY: Respiratory distress. FINDINGS/IMPRESSION: Comparison made with exam of 05/15/18. The heart size is normal. Left-sided central line has been removed in the interim. Right-sided centra l venous catheter remains in place. Mild patchy opacities are seen in the left lung base. No definite pneumothorax is identified. POS: [facility]
[2018-05-07] MEDS ORDERED: LEVEMIR 12 UNIT SC SCH (09:00)
[2018-05-07] MEDS ORDERED: FLUoxetine HCl 10 MG CAP PO SCH (09:00)
[2018-05-07] MEDS: fentaNYL Citrate/PF 2,000 MCG in Sodium Chloride 0.9% 60 ML IV PRN (09:25)
[2018-05-07] MEDS: FLUoxetine HCl 20 MG CAP PO SCH (09:26)
[2018-05-07] MEDS ORDERED: Insulin Glargine 12 UNITS in Pre-Filled Syringe 1 EACH SC SCH ×2 (10:00→21:00)
[2018-05-07] MEDS: Lopinavir/Ritonavir 80 MG/20 MG per ML Oral Solution PER TUBE SCH ×2 (10:49→21:57)
[2018-05-07] MEDS: Insulin Regular 300 UNITS/3 ML VIAL SC SCH ×2 (11:57→16:55)
[2018-05-07] MEDS ORDERED: [UNRECOGNIZED DRUG - OTHER] SC SCH (12:00)
[2018-05-07] MEDS ORDERED: INSULIN REGULAR SC SCH (12:00)
[2018-05-07] MEDS: Acetaminophen 500 MG TAB PO PRN (17:58)
--- NOTE | 2018-05-07 19:18 | PDOC.PN ---
- Subjective Encounter Start Date: 05/07/18 Encounter Start Time: 10:00 Subjective: pt up in bed feels much better - Objective Resuscitation Status - Order Detail: 04/26/18 08:43 Resuscitation Status Routine Resuscitation Status: FULL: Full Resuscitation Discussed with: patient Vital Signs & Weight: Vital Signs (12 hours) Temp Pulse Resp BP Pulse Ox 05/07/18 17:02 98.7 F 87 18 107/69 98 05/07/18 07:33 98.2 F 93 16 101/64 98 Weight Admit Weight 118 lb 4.8 oz Weight 126 lb 5.198 oz Most Recent Monitor Data Heart Rate from ECG 85 NIBP 111/73 NIBP BP-Mean 85 Respiration from ECG 19 SpO2 99 I&O: 05/06/18 05/07/18 05/08/18 06:59 06:59 06:59 Intake Total 1426 1200 Output Total 3650 900 Balance -2224 300 Result Diagrams: 05/05/18 04:22 05/05/18 04:22 Additional Labs: Accuchecks 05/07/18 05/07/18 05/07/18 16:49 10:55 05:08 POC Glucose 357 H 238 H 374 H 05/07/18 05/06/18 00:47 20:53 POC Glucose 335 H 327 H Phys Exam - Physical Examination Neck: no nodes, no JVD, supple, full ROM Respiratory: no wheezing, no rales, no rhonchi, wheezing present, clear to auscultation bilateral Cardiovascular: RRR, no significant murmur, no rub, gallop, irregular Gastrointestinal: soft, non-tender, no distention, positive bowel sounds Musculoskeletal: no edema, pulses present, edema present Dx/Plan (1) Acute respiratory failure with hypoxia Code(s): J96.01 - ACUTE RESPIRATORY FAILURE WITH HYPOXIA Status: Acute (2) Perirectal abscess Code(s): K61.1 - RECTAL ABSCESS Status: Acute Comment: nectrotising fascitis , S/p debridement x5. Continue Abx per ID recs. Wound vac. (3) Acute renal failure Status: Acute Comment: Continue IVF. Improving. (4) HIV (human immunodeficiency virus infection) Status: Chronic Comment: Continue home anti-retrovirals, new level is 126 (5) Severe protein-calorie malnutrition Code(s): E43 - UNSPECIFIED SEVERE PROTEIN-CALORIE MALNUTRITION Status: Acute - Plan pt on solid die cutter her pain is controlled -: possible debridement on thursday per staff. -: will conitnue abx for now -: discharge to rehab when ok with surgery * . Review of Systems - Review of Systems Respiratory: negative: Cough, Dry, Shortness of Breath, Hemoptysis, SOB with Excertion, Pleuritic Pain, Sputum, Wheezing Cardiovascular: negative: chest pain, palpitations, orthopnea, paroxysmal nocturnal dyspnea, edema, light headedness, other Gastrointestinal: negative: Nausea, Vomiting, Abdominal Pain, Diarrhea, Constipation, Melena, Hematochezia, Other - Medications/Allergies Allergies/Adverse Reactions: Allergies Allergy/AdvReac Type Severity Reaction Status Date / Time sulfamethoxazole Allergy Nausea Verified 05/03/13 15:27 [From Bactrim] trimethoprim [From Bactrim] Allergy Nausea Verified 05/03/13 15:27 Medications: Current Medications Acetaminophen (Tylenol) 1,000 mg PO Q6H PRN PRN Reason: Moderate to Severe Pain (6-10) Last Admin: 05/07/18 17:58 Dose: 1,000 mg Ascorbic Acid (Vitamin C) 1,000 mg PO DAILY [facility] Last Admin: 05/07/18 08:24 Dose: 1,000 mg Dextrose/Water (Dextrose 50%) 25 gm SLOW IVP PRN PRN PRN Reason: Hypoglycemia Last Admin: 05/01/18 17:30 Dose: 25 gm Diphenhydramine HCl (Benadryl) 25 mg IVP Q3H PRN PRN Reason: Itching Diphenhydramine HCl (Benadryl) 25 mg PO Q3H PRN PRN Reason: Itching Diphenhydramine HCl (Benadryl) 25 mg IM Q3H PRN PRN Reason: Itching Etravirine (Intelence) 200 mg PO BID-PC [facility] Last Admin: 05/07/18 17:58 Dose: 200 mg Fluoxetine HCl (Prozac) 20 mg PO DAILY [facility] Last Admin: 05/07/18 09:26 Dose: 20 mg Glucagon (Glucagon) 1 mg IM PRN PRN PRN Reason: Hypoglycemia Dextrose/Water (D5w) 1,000 mls @ 0 mls/hr IV .Q0M PRN PRN Reason: Hypoglycemia Meropenem 1 gm/ Device 50 mls @ 100 mls/hr IVPB Q8HR [facility] Last Admin: 05/07/18 13:57 Dose: 50 mls Magnesium Sulfate 1 gm/ Sodium (Chloride) 102 mls @ 102 mls/hr IV PRN PRN PRN Reason: MAG LEVEL 1.4 - 2.0 Fentanyl Citrate 2,000 mcg/ (Sodium Chloride) 100 mls @ 0 mls/hr IV INF PRN PRN Reason: Pain Last Admin: 05/07/18 09:25 Dose: 100 mls Vancomycin HCl 750 mg/ Sodium (Chloride) 250 mls @ 250 mls/hr IVPB Q8HR [facility] Last Admin: 05/07/18 13:57 Dose: 250 mls Insulin Glargine 12 units/ (Miscellaneous Medication) 0.12 mls @ 0 mls/hr SC BID [facility] Insulin Human Lispro (Humalog) 0 units SC .AGGRESSIVE SLIDING PRN PRN Reason: Aggressive Correctional Scale Last Admin: 05/07/18 16:55 Dose: 13 unit Insulin Human Regular (Humulin R) 2 units SC TID-WM [facility] Last Admin: 05/07/18 16:55 Dose: 2 unit Lamivudine (Epivir Oral Solution) 150 mg PER TUBE BID [facility] Last Admin: 05/07/18 08:24 Dose: 150 mg Lopinavir/Ritonavir (Kaletra) 400 mg PER TUBE BID [facility] Last Admin: 05/07/18 10:49 Dose: Not Given Magnesium Oxide (Magnesium Oxide) 400 mg PO BIDPRN PRN PRN Reason: FOR SERUM MAG 1.4 - 2.0 Magnesium Oxide (Magnesium Oxide) 800 mg PO PRN PRN PRN Reason: FOR SERUM MAG < 1.4 Miscellaneous Medication (Pharmacy To Dose) 1 each IVPB PRN PRN PRN Reason: Pharmacy to dose Multivitamins (Theragran) 1 tab PO DAILY [facility] Last Admin: 05/07/18 08:24 Dose: 1 tab Naloxone HCl (Narcan) 0.2 mg IV Q5MIN PRN PRN Reason: Opiate Reversal Ccu Electrolyte (Replacement Protocol) 0 each FS PRN PRN PRN Reason: FOR ELECTROLYTE REPLACEMENT Ondansetron HCl (Zofran) 4 mg IVP Q6H PRN PRN Reason: Nausea/Vomiting Pantoprazole Sodium (Protonix) 40 mg PO DAILY [facility] Last Admin: 05/07/18 08:24 Dose: 40 mg Polyethylene Glycol (Miralax) 17 gm PO DAILY [facility] Last Admin: 05/07/18 08:25 Dose: 17 gm Potassium Chloride (K-Dur) 40 meq PO ASDIR PRN PRN Reason: FOR SERUM K+ 2.5 - 3.5 Sodium Chloride (Flush - Normal Saline) 10 ml IVF Q12HR [facility] Last Admin: 05/07/18 08:25 Dose: Not Given Sodium Chloride (Flush - Normal Saline) 10 ml IVF PRN PRN PRN Reason: Saline Flush Zinc Sulfate (Zinc Sulfate) 220 mg PO DAILY [facility] Last Admin: 05/07/18 08:24 Dose: 220 mg
[2018-05-07 21:12] LABS: Vancomycin, Trough 25.1 ug/mL
[2018-05-07] MEDS: Insulin Glargine 12 UNITS in Pre-Filled Syringe 1 EACH SC SCH (21:57)
--- NOTE | 2018-05-08 00:20 | PRG ---
DATE OF SERVICE: 05/07/2018 SUBJECTIVE: Katerin Baez is doing well today. She is alert, in her bed. She has not been in a chair. OBJECTIVE: VITAL SIGNS: Temperature 98.3 degrees, pulse 88, and blood pressure 96/58. LUNGS: Clear to auscultation. CARDIAC: Regular rate and rhythm without murmur or gallop. ABDOMEN: Soft. Colostomy healthy. LABORATORY DATA: Hemoglobin 7.3, white count 16 two days ago. Basic metabolic profile normal 2 days ago. ASSESSMENT AND PLAN: Doing well and she is tolerating her diet. We will plan wound VAC change Thursday. has been contacted. He will be at the bedside in the operating room to view her wound for future consideration. The patient could be transferred to rehab next week. Job ID: [id number]
[2018-05-08] MEDS: MEROPENEM 1 GM/50 ML 1 GM in Premix Bag 1 BAG IVPB SCH ×3 (06:22→21:08)
[2018-05-08 08:19] LABS: #Basophils 0.1 thou/uL (0.0-0.2); #Eosinphils 0.2 thou/uL (0.0-0.7); #Lymphocytes 0.9 thou/uL (1.20-3.40); #Monocytes 0.7 thou/uL (0.11-0.59); %Basophils 0.8 % (0.0-1.0); %Eosinophils 1.6 % (0.0-10.0); %Lymphocytes 8.6 % (21.0-51.0); %Monocytes 6.4 % (0.0-10.0); %Neutrophils 82.7 % (42.0-75.0); Mean Corpuscular HGB CONC 33.1 g/dL (32.0-36.0); Mean Corpuscular Hemoglobin 28.7 pg (27.0-31.0); Mean Corpuscular Volume 86.7 fL (78.0-98.0); Mean Platelet Volume 6.2 fL (7.4-10.4); Platelet Count 624 thou/uL (130-400); RBC Distribution Width 13.2 % (11.5-14.5); Red Blood Cell (RBC) Count 2.45 mill/uL (4.20-5.40); White Blood Cell (WBC) Count 10.9 thou/uL (4.8-10.8)
[2018-05-08] MEDS: fentaNYL Citrate/PF 2,000 MCG in Sodium Chloride 0.9% 60 ML IV PRN (08:24)
[2018-05-08] MEDS: Vancomycin HCl 750 MG in Sodium Chloride 0.9% 250 ML 250 ML IVPB SCH ×3 (08:27→21:08)
[2018-05-08] MEDS: Polyethylene Glycol 3350 17 GM Packet PO SCH (08:27)
[2018-05-08] MEDS: Ascorbic Acid 500 mg Chewable Tablet PO SCH (08:29)
[2018-05-08] MEDS: Multivit, Therapeutic 1 TAB PO SCH (08:29)
[2018-05-08] MEDS: Pantoprazole 40 MG GRANULES PACKET PO SCH (08:30)
[2018-05-08] MEDS: Zinc Sulfate 220 MG CAP PO SCH (08:30)
[2018-05-08] MEDS: FLUoxetine HCl 20 MG CAP PO SCH (08:30)
[2018-05-08] MEDS: Insulin Regular 300 UNITS/3 ML VIAL SC SCH ×3 (08:31→17:28)
[2018-05-08 08:37] LABS: ALT (SGPT) 8 U/L (8-55); AST (SGOT) 18 U/L (5-34); Albumin 2.5 g/dL (3.5-5.0); Alkaline Phosphatase 101 U/L (40-150); Anion Gap 10 mmol/L (10-20); BUN (Urea Nitrogen) 6 mg/dL (7.0-18.7); Bilirubin, Total 0.3 mg/dL (0.2-1.2); Calc. Creatinine Clearance 113 mL/min (70-130); Calcium 8.2 mg/dL (7.8-10.44); Carbon Dioxide 28 mmol/L (22-29); Chloride 98 mmol/L (98-107); Estimated GFR-MDRD Greater than 90; Globulin 3.5 g/dL (2.4-3.5); Glucose 135 mg/dL (70-105); Sodium 132 mmol/L (136-145)
[2018-05-08] MEDS: Insulin Glargine 12 UNITS in Pre-Filled Syringe 1 EACH SC SCH ×2 (08:51→21:09)
--- NOTE | 2018-05-08 10:01 | RAD ---
PORTABLE CHEST ONE VIEW: 05/08/2018 6:44 a.m. HISTORY: Respiratory distress. COMPARISON: Exam from the previous day. FINDINGS: No significant interval change is seen. The right-sided central venous catheter remains in place. M ild patchy opacities in the left lung base are again noted. No pneumothorax is seen. POS: [facility]
[2018-05-08] MEDS: Lopinavir/Ritonavir 80 MG/20 MG per ML Oral Solution PER TUBE SCH (10:43)
--- NOTE | 2018-05-08 12:23 | PDOC.PN ---
- Subjective Encounter Start Date: 05/08/18 Encounter Start Time: 10:45 No specific complaint. - Objective Resuscitation Status - Order Detail: 04/26/18 08:43 Resuscitation Status Routine Resuscitation Status: FULL: Full Resuscitation Discussed with: patient Vital Signs & Weight: Vital Signs (12 hours) Temp Pulse Resp BP Pulse Ox 05/08/18 11:00 98.2 F 97 18 164/89 H 94 L 05/08/18 08:00 98.5 F 86 18 120/77 96 Weight Admit Weight 118 lb 4.8 oz Weight 126 lb 8.725 oz Most Recent Monitor Data Heart Rate from ECG 85 NIBP 111/73 NIBP BP-Mean 85 Respiration from ECG 19 SpO2 99 I&O: 05/07/18 05/08/18 05/09/18 06:59 06:59 06:59 Intake Total 1200 Output Total 900 Balance 300 Result Diagrams: 05/08/18 08:06 05/08/18 08:06 Additional Labs: Accuchecks 05/08/18 05/08/18 05/07/18 11:53 05:21 19:44 POC Glucose 120 H 167 H 192 H 05/07/18 16:49 POC Glucose 357 H Phys Exam - Physical Examination Neck: no JVD Respiratory: clear to auscultation bilateral Cardiovascular: RRR Gastrointestinal: soft (s/p colostomy.) Musculoskeletal: no edema Neurological: moves all 4 limbs Dx/Plan (1) Acute renal failure Status: Acute Comment: Resolved.. (2) Acute respiratory failure with hypoxia Code(s): J96.01 - ACUTE RESPIRATORY FAILURE WITH HYPOXIA Status: Acute (3) Perirectal abscess Code(s): K61.1 - RECTAL ABSCESS Status: Acute Comment: nectrotising fascitis , S/p debridement x5. s/p colostomy. Continue antibiotics. (4) Sepsis Code(s): A41.9 - SEPSIS, UNSPECIFIED ORGANISM Status: Acute Qualifiers: Sepsis type: Streptococcus, unspecified Qualified Code(s): A40.9 - Streptococcal sepsis, unspecified; A40 - Streptococcal sepsis Comment: continue antibiotics.. (5) Severe protein-calorie malnutrition Code(s): E43 - UNSPECIFIED SEVERE PROTEIN-CALORIE MALNUTRITION Status: Acute (6) Anemia Code(s): D64.9 - ANEMIA, UNSPECIFIED Status: Acute Comment: Due to chronic disease.. we'll monitor. May need transfusion. - Plan -: Continue current therapy.. * .
--- NOTE | 2018-05-08 13:01 | PRG ---
DATE OF SERVICE: 05/08/2018 SUBJECTIVE: Cortney Baez is doing well today. She has no complaints. OBJECTIVE: VITAL SIGNS: Temperature 98.5 degrees, pulse 86, and blood pressure 120/77. GENERAL: She has not been out of bed into a chair. HEAD, EYES, EARS, NOSE, AND THROAT: Unremarkable. LUNGS: Clear to auscultation. CARDIAC: Regular rate and rhythm without murmur or gallop. ABDOMEN: Soft. Wound VAC in place, perineal/sacral wound. LABORATORY DATA: Hemoglobin 7, white count 10.9. Basic metabolic profile normal. Accu-Cheks 167, 190, 135. ASSESSMENT AND PLAN: The patient needs mobility. She needs to be up in a chair tomorrow. We will plan wound VAC change and Dr. Alfonzo Beverly, Plastic Surgery will be available to view her wound intraoperatively. I expect very little debridement to be done tomorrow as her wounds look very good and granulating. The patient probably is stable for transfer to Rehab Unit later in the week. Her colostomy is working well. She is eating well. Job ID: [id number]
[2018-05-08] MEDS ORDERED: Succinylcholine Chloride 20 MG/ML 10 ml SYRINGE FS ONE (14:55)
[2018-05-08] MEDS ORDERED: PROPOFOL 200 MG/20 ML VIAL ONE (14:55)
[2018-05-08] MEDS ORDERED: Ondansetron PF 4 MG/2 ML Vial ONE (14:55)
[2018-05-08] MEDS ORDERED: Lidocaine 1% PF 5 ML VIAL ONE (14:55)
[2018-05-08] MEDS ORDERED: PHENYLEPHRINE-NS 100 MCG/ML 10 ML SYRINGE ONE (14:55)
[2018-05-08] MEDS: Lopinavir/Ritonavir 80 MG/20 MG per ML Oral Solution PO SCH (21:07)
[2018-05-09] MEDS: MEROPENEM 1 GM/50 ML 1 GM in Premix Bag 1 BAG IVPB SCH ×2 (06:37→11:05)
[2018-05-09] MEDS ORDERED: Lactated Ringer's 1,000 ML IV SCH ×2 (08:00)
[2018-05-09] MEDS ORDERED: Famotidine/PF 20 mg/2ml Vial ONE (08:02)
[2018-05-09] MEDS ORDERED: Midazolam HCl 2 mg/2 ml Vial ONE (08:02)
[2018-05-09] MEDS ORDERED: Fentanyl 100 MCG/2 ML VIAL ONE ×2 (08:02)
[2018-05-09] MEDS ORDERED: Ondansetron HCl/PF 4 MG/2 ML Vial IVP PRN (08:46)
[2018-05-09] MEDS ORDERED: Meperidine HCl/PF 25 MG/ML VIAL SLOW IVP PRN (08:46)
[2018-05-09] MEDS ORDERED: Promethazine HCl 25 MG/ML VIAL SLOW IVP PRN (08:46)
[2018-05-09] MEDS ORDERED: HYDROmorphone 2 MG/ML VIAL SLOW IVP PRN (08:46)
[2018-05-09] MEDS ORDERED: Promethazine HCl 25 MG/ML VIAL IM PRN (08:46)
[2018-05-09] MEDS: fentaNYL Citrate/PF 2,000 MCG in Sodium Chloride 0.9% 60 ML IV PRN (10:42)
[2018-05-09] MEDS: FLUoxetine HCl 20 MG CAP PO SCH (10:46)
[2018-05-09] MEDS: Ascorbic Acid 500 mg Chewable Tablet PO SCH (10:46)
[2018-05-09] MEDS: Insulin Glargine 12 UNITS in Pre-Filled Syringe 1 EACH SC SCH ×2 (10:52→22:25)
[2018-05-09] MEDS: Multivit, Therapeutic 1 TAB PO SCH (10:53)
[2018-05-09] MEDS: Polyethylene Glycol 3350 17 GM Packet PO SCH (10:53)
[2018-05-09] MEDS: Lopinavir/Ritonavir 80 MG/20 MG per ML Oral Solution PO SCH ×2 (11:06→22:25)
[2018-05-09] MEDS: Zinc Sulfate 220 MG CAP PO SCH (11:06)
[2018-05-09] MEDS: Insulin Regular 300 UNITS/3 ML VIAL SC SCH ×2 (11:06→17:26)
[2018-05-09] MEDS: Pantoprazole 40 MG GRANULES PACKET PO SCH (11:06)
[2018-05-09 11:12] LABS: Vancomycin, Trough 16.5 ug/mL
[2018-05-09] MEDS: Vancomycin HCl 750 MG in Sodium Chloride 0.9% 250 ML 250 ML IVPB SCH ×2 (12:53→22:26)
--- NOTE | 2018-05-09 12:55 | PDOC.PN ---
- Subjective Encounter Start Date: 05/09/18 Encounter Start Time: 12:53 -: No new complaint. s/p I&D I&D - Objective Resuscitation Status - Order Detail: 04/26/18 08:43 Resuscitation Status Routine Resuscitation Status: FULL: Full Resuscitation Discussed with: patient Vital Signs & Weight: Weight Admit Weight 118 lb 4.8 oz Weight 125 lb 10.616 oz Most Recent Monitor Data Heart Rate from ECG 85 NIBP 111/73 NIBP BP-Mean 85 Respiration from ECG 19 SpO2 99 I&O: 05/08/18 05/09/18 05/10/18 06:59 06:59 06:59 Intake Total 1200 1150 Output Total 708 066 2896 Balance 300 -800 -750 Result Diagrams: 05/08/18 08:06 05/08/18 08:06 Additional Labs: Accuchecks 05/09/18 05/09/18 05/08/18 11:39 06:36 19:52 POC Glucose 156 H 211 H 91 05/08/18 16:56 POC Glucose 96 Phys Exam - Physical Examination Neck: no JVD Respiratory: clear to auscultation bilateral Cardiovascular: RRR Gastrointestinal: soft Musculoskeletal: no edema Neurological: moves all 4 limbs Psychiatric: normal affect Dx/Plan (1) Acute renal failure Status: Acute Comment: Resolved.. (2) Acute respiratory failure with hypoxia Code(s): J96.01 - ACUTE RESPIRATORY FAILURE WITH HYPOXIA Status: Acute (3) Perirectal abscess Code(s): K61.1 - RECTAL ABSCESS Status: Acute Comment: s/p I&D today... s/p colostomy. Continue antibiotics. (4) Sepsis Code(s): A41.9 - SEPSIS, UNSPECIFIED ORGANISM Status: Acute Qualifiers: Sepsis type: Streptococcus, unspecified Qualified Code(s): A40.9 - Streptococcal sepsis, unspecified; A40 - Streptococcal sepsis Comment: continue antibiotics.. (5) Severe protein-calorie malnutrition Code(s): E43 - UNSPECIFIED SEVERE PROTEIN-CALORIE MALNUTRITION Status: Acute (6) Anemia Code(s): D64.9 - ANEMIA, UNSPECIFIED Status: Acute Comment: Due to chronic disease.. we'll monitor. May need transfusion. - Plan * .
--- NOTE | 2018-05-09 22:01 | OP ---
DATE OF PROCEDURE: 05/09/2018 PREOPERATIVE DIAGNOSES: Necrotizing fasciitis, perineum, perianal, buttocks, and presacral, HIV positive, for wound VAC change and washout and debridement. Note, Dr. Alfonzo Beverly presented to the operating room to evaluate the wound for baseline for future closure considerations. PROCEDURES: Debridement of skin, subcutaneous tissue, wound washout, VAC application, wound care. ANESTHESIA: General anesthesia. DESCRIPTION OF PROCEDURE: The patient was taken to the operating room in the right lateral decubitus position, the patient was properly positioned on a beaulieu bag and Dr. Alfonzo Beverly evaluated the wound for future evaluation and consideration to aid in wound closure in the future. The wound was amazingly healthy with granulation. There was a small amount of necrotic skin. The wound was prepared with Betadine and draped in routine fashion. Skin edges were debrided sharply. Skin and subcutaneous tissue excisional debridement, resectional. Hemostasis was gained with cautery. Wound was irrigated with a pulse irrigation lavage. Wound Care Team arrived to place a wound VAC. The patient tolerated the procedure well. Job ID: [id number]
[2018-05-10] MEDS: Zinc Sulfate 220 MG CAP PO SCH (08:56)
[2018-05-10] MEDS: Insulin Glargine 12 UNITS in Pre-Filled Syringe 1 EACH SC SCH ×2 (08:56→21:24)
[2018-05-10] MEDS: Ascorbic Acid 500 mg Chewable Tablet PO SCH (08:56)
[2018-05-10] MEDS: Pantoprazole 40 MG GRANULES PACKET PO SCH (08:56)
[2018-05-10] MEDS: FLUoxetine HCl 20 MG CAP PO SCH (08:56)
[2018-05-10] MEDS: Multivit, Therapeutic 1 TAB PO SCH (08:56)
[2018-05-10] MEDS: Polyethylene Glycol 3350 17 GM Packet PO SCH (08:57)
[2018-05-10] MEDS: Insulin Regular 300 UNITS/3 ML VIAL SC SCH ×3 (08:57→16:57)
[2018-05-10] MEDS: Lopinavir/Ritonavir 80 MG/20 MG per ML Oral Solution PO SCH ×2 (09:08→21:23)
[2018-05-10] MEDS: Vancomycin HCl 750 MG in Sodium Chloride 0.9% 250 ML 250 ML IVPB SCH ×2 (09:46→21:23)
--- NOTE | 2018-05-10 10:40 | PDOC.PN ---
- Subjective Encounter Start Date: 05/10/18 Encounter Start Time: 10:37 -: old records requested/rev Pt seen adn examined, chart reviewed in its entirety, this is my first visit with this patient follow up for pat's gangrene, HIV disease, non-healing surgical wound. polymicrobial infection To OR yesterday, plastics was able to see and examine the wound No F/C, no N/V/D/C, no CP or SOB - Objective Resuscitation Status - Order Detail: 04/26/18 08:43 Resuscitation Status Routine Resuscitation Status: FULL: Full Resuscitation Discussed with: patient MAR Reviewed: Yes Vital Signs & Weight: Vital Signs (12 hours) Temp Pulse Resp BP Pulse Ox 05/10/18 07:28 99.0 F 96 16 113/77 96 Weight Admit Weight 118 lb 4.8 oz Weight 127 lb 3.307 oz Most Recent Monitor Data Heart Rate from ECG 85 NIBP 111/73 NIBP BP-Mean 85 Respiration from ECG 19 SpO2 99 I&O: 05/09/18 05/10/18 05/11/18 06:59 06:59 06:59 Intake Total 1150 Output Total 800 1900 Balance -800 -750 Result Diagrams: 05/08/18 08:06 05/08/18 08:06 Additional Labs: Accuchecks 05/10/18 05/09/18 05/09/18 05:12 19:34 16:38 POC Glucose 240 H 175 H 186 H 05/09/18 11:39 POC Glucose 156 H Radiology Reviewed by me: Yes EKG Reviewed by me: Yes Phys Exam - Physical Examination Constitutional: NAD HEENT: PERRLA, moist MMs, sclera anicteric, oral pharynx no lesions Neck: no nodes, no JVD, supple, full ROM Respiratory: no wheezing, no rales, no rhonchi, clear to auscultation bilateral Cardiovascular: RRR, no significant murmur, no rub Gastrointestinal: soft, non-tender, no distention, positive bowel sounds Musculoskeletal: no edema Neurological: non-focal, normal sensation, moves all 4 limbs Lymphatic: no nodes Psychiatric: normal affect, A&O x 3 Skin: no rash, normal turgor, cap refill <2 seconds Deviation from normal: post op dressing in place, not removed. Dx/Plan (1) Acute renal failure Status: Acute Qualifiers: Acute renal failure type: with acute tubular necrosis Qualified Code(s): N17.0 - Acute kidney failure with tubular necrosis Comment: Resolved.. (2) Acute respiratory failure with hypoxia Code(s): J96.01 - ACUTE RESPIRATORY FAILURE WITH HYPOXIA Status: Acute (3) Anasarca Code(s): R60.1 - GENERALIZED EDEMA Status: Acute (4) Anemia Code(s): D64.9 - ANEMIA, UNSPECIFIED Status: Acute Qualifiers: Anemia type: unspecified type Qualified Code(s): D64.9 - Anemia, unspecified Comment: Due to chronic disease.. we'll monitor. May need transfusion. (5) FTT (failure to thrive) in adult Status: Chronic (6) Perirectal abscess Code(s): K61.1 - RECTAL ABSCESS Status: Acute Comment: s/p I&D today... s/p colostomy. s/p repeat debridement 05/09 Continue antibiotics. (7) Physical deconditioning Code(s): R53.81 - OTHER MALAISE Status: Acute (8) Sepsis Code(s): A41.9 - SEPSIS, UNSPECIFIED ORGANISM Status: Acute Qualifiers: Sepsis type: Streptococcus, unspecified Qualified Code(s): A40.9 - Streptococcal sepsis, unspecified; A40 - Streptococcal sepsis Comment: continue antibiotics.. (9) Severe protein-calorie malnutrition Code(s): E43 - UNSPECIFIED SEVERE PROTEIN-CALORIE MALNUTRITION Status: Acute (10) Asthma Code(s): J45.909 - UNSPECIFIED ASTHMA, UNCOMPLICATED Status: Chronic Qualifiers: Asthma severity: mild Asthma persistence: intermittent Asthma complication type: uncomplicated Qualified Code(s): J45.20 - Mild intermittent asthma, uncomplicated (11) Diabetes Code(s): E11.9 - TYPE 2 DIABETES MELLITUS WITHOUT COMPLICATIONS Status: Chronic Qualifiers: Diabetes mellitus type: type 2 Diabetes mellitus fci insulin use: with fci use Diabetes mellitus complication status: with unspecified complications Qualified Code(s): E11.8 - Type 2 diabetes mellitus with unspecified complications; Z79.4 - oil heaterman (current) use of insulin Comment: labile (12) HIV (human immunodeficiency virus infection) Status: Chronic Comment: Continue home anti-retrovirals, new level is 126 - Plan cont current plan of care, plan discussed w/ family, continue antibiotics, PT/OT * . wound care, VAC in place, next planned change 05/12
[2018-05-10] MEDS: Acetaminophen 500 MG TAB PO PRN (12:12)
[2018-05-10] MEDS: HumaLOG 300 UNITS/3 ML VIAL SC PRN ×2 (12:12→16:58)
[2018-05-10] MEDS: fentaNYL Citrate/PF 2,000 MCG in Sodium Chloride 0.9% 60 ML IV PRN (12:36)
[2018-05-10 17:11] VITALS: BMI 24.0
--- NOTE | 2018-05-10 17:18 | PRG ---
DATE OF SERVICE: Ms. Baez underwent a repeat washout yesterday and is doing well. 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 Earlier, the cartridge ran out and it took a while to replace it and that was quite uncomfortable for her. Her fingersticks have ranged from 156 to 240 and her T-max was 99. Her VAC dressing is in place without any leak with minimal drainage. She is awaiting placement at LTAC or rehab and will likely require repeated dressing changes in the operating room due to the extensive nature of her wound. Job ID: [id number]
[2018-05-11] MEDS: Lopinavir/Ritonavir 80 MG/20 MG per ML Oral Solution PO SCH ×2 (08:42→20:35)
[2018-05-11] MEDS: Zinc Sulfate 220 MG CAP PO SCH (08:42)
[2018-05-11] MEDS: Pantoprazole 40 MG GRANULES PACKET PO SCH (08:43)
[2018-05-11] MEDS: Insulin Glargine 12 UNITS in Pre-Filled Syringe 1 EACH SC SCH ×2 (08:43→20:42)
[2018-05-11] MEDS: Multivit, Therapeutic 1 TAB PO SCH (08:43)
[2018-05-11] MEDS: Insulin Regular 300 UNITS/3 ML VIAL SC SCH ×3 (08:43→17:18)
[2018-05-11] MEDS: FLUoxetine HCl 20 MG CAP PO SCH (08:43)
[2018-05-11] MEDS: Polyethylene Glycol 3350 17 GM Packet PO SCH (08:43)
[2018-05-11] MEDS: Ascorbic Acid 500 mg Chewable Tablet PO SCH (08:43)
[2018-05-11] MEDS: fentaNYL Citrate/PF 2,000 MCG in Sodium Chloride 0.9% 60 ML IV PRN (10:13)
[2018-05-11] MEDS: Vancomycin HCl 750 MG in Sodium Chloride 0.9% 250 ML 250 ML IVPB SCH ×2 (11:06→20:35)
--- NOTE | 2018-05-11 13:04 | PRG ---
DATE OF SERVICE: 05/11/2018 SUBJECTIVE: Ms. Baez is feeling well today. She denies any nausea or problem with breathing. She is afebrile with normal vital signs. 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 Her VAC is in place with a good seal and minimal serosanguineous drainage. ASSESSMENT AND PLAN: Clinically much improved from her necrotizing fasciitis. She is awaiting placement. She is on the schedule for tomorrow for a dressing change under anesthesia. Job ID: [id number]
--- NOTE | 2018-05-11 15:56 | PDOC.PN ---
- Subjective Encounter Start Date: 05/11/18 Encounter Start Time: 11:00 follow up for pat's gangrene, HIV disease, non-healing surgical wound. polymicrobial infection To OR yesterday, plastics was able to see and examine the wound No F/C, no N/V/D/C, no CP or SOB - Objective Resuscitation Status - Order Detail: 04/26/18 08:43 Resuscitation Status Routine Resuscitation Status: FULL: Full Resuscitation Discussed with: patient MAR Reviewed: Yes Vital Signs & Weight: Vital Signs (12 hours) Temp Pulse Resp BP Pulse Ox 05/11/18 11:44 99.1 F 93 18 107/41 L 100 05/11/18 08:16 99.0 F 97 16 124/77 97 05/11/18 04:21 99.2 F 90 16 119/77 100 Weight Admit Weight 118 lb 4.8 oz Weight 127 lb 3.307 oz Most Recent Monitor Data Heart Rate from ECG 85 NIBP 111/73 NIBP BP-Mean 85 Respiration from ECG 19 SpO2 99 I&O: 05/10/18 05/11/18 05/12/18 06:59 06:59 06:59 Intake Total 1150 1304 79.6 Output Total 1900 1900 Balance -750 -596 79.6 Result Diagrams: 05/08/18 08:06 05/08/18 08:06 Additional Labs: Accuchecks 05/11/18 05/11/18 05/10/18 11:05 04:26 20:00 POC Glucose 140 H 208 H 143 H 05/10/18 15:52 POC Glucose 225 H Phys Exam - Physical Examination Constitutional: NAD HEENT: PERRLA, moist MMs, sclera anicteric, oral pharynx no lesions Neck: no nodes, no JVD, supple, full ROM Respiratory: no wheezing, no rales, no rhonchi, clear to auscultation bilateral Cardiovascular: RRR, no significant murmur, no rub Gastrointestinal: soft, non-tender, no distention, positive bowel sounds Musculoskeletal: no edema, pulses present Neurological: non-focal, normal sensation, moves all 4 limbs Lymphatic: no nodes Psychiatric: normal affect, A&O x 3 Skin: no rash, normal turgor, cap refill <2 seconds Dx/Plan (1) Acute renal failure Status: Acute Qualifiers: Acute renal failure type: with acute tubular necrosis Qualified Code(s): N17.0 - Acute kidney failure with tubular necrosis Comment: Resolved.. (2) Acute respiratory failure with hypoxia Code(s): J96.01 - ACUTE RESPIRATORY FAILURE WITH HYPOXIA Status: Acute (3) Anasarca Code(s): R60.1 - GENERALIZED EDEMA Status: Acute (4) Anemia Code(s): D64.9 - ANEMIA, UNSPECIFIED Status: Acute Qualifiers: Anemia type: unspecified type Qualified Code(s): D64.9 - Anemia, unspecified Comment: Due to chronic disease.. we'll monitor. May need transfusion. (5) FTT (failure to thrive) in adult Status: Chronic (6) Perirectal abscess Code(s): K61.1 - RECTAL ABSCESS Status: Acute Comment: s/p I&D today... s/p colostomy. s/p repeat debridement 05/09 Continue antibiotics. (7) Physical deconditioning Code(s): R53.81 - OTHER MALAISE Status: Acute (8) Sepsis Code(s): A41.9 - SEPSIS, UNSPECIFIED ORGANISM Status: Acute Qualifiers: Sepsis type: Streptococcus, unspecified Qualified Code(s): A40.9 - Streptococcal sepsis, unspecified; A40 - Streptococcal sepsis Comment: continue antibiotics.. (9) Severe protein-calorie malnutrition Code(s): E43 - UNSPECIFIED SEVERE PROTEIN-CALORIE MALNUTRITION Status: Acute (10) Asthma Code(s): J45.909 - UNSPECIFIED ASTHMA, UNCOMPLICATED Status: Chronic Qualifiers: Asthma severity: mild Asthma persistence: intermittent Asthma complication type: uncomplicated Qualified Code(s): J45.20 - Mild intermittent asthma, uncomplicated (11) Diabetes Code(s): E11.9 - TYPE 2 DIABETES MELLITUS WITHOUT COMPLICATIONS Status: Chronic Qualifiers: Diabetes mellitus type: type 2 Diabetes mellitus retirement insulin use: with retirement use Diabetes mellitus complication status: with unspecified complications Qualified Code(s): E11.8 - Type 2 diabetes mellitus with unspecified complications; Z79.4 - project manager/team coach (current) use of insulin Comment: labile (12) HIV (human immunodeficiency virus infection) Status: Chronic Comment: Continue home anti-retrovirals, new level is 126 - Plan cont current plan of care, continue antibiotics, PT/OT * . wound care
[2018-05-12 06:35] LABS: #Basophils 0.1 thou/uL (0.0-0.2); #Eosinphils 0.2 thou/uL (0.0-0.7); #Lymphocytes 0.8 thou/uL (1.20-3.40); #Monocytes 0.8 thou/uL (0.11-0.59); #Neutrophils 8.4 thou/uL (1.40-6.50); %Basophils 0.6 % (0.0-1.0); %Eosinophils 1.9 % (0.0-10.0); %Lymphocytes 7.5 % (21.0-51.0); Hemoglobin 6.5 g/dL (12.0-16.0); Mean Corpuscular HGB CONC 32.3 g/dL (32.0-36.0); Mean Corpuscular Hemoglobin 28.4 pg (27.0-31.0); Mean Corpuscular Volume 87.8 fL (78.0-98.0); Mean Platelet Volume 5.9 fL (7.4-10.4); Platelet Count 685 thou/uL (130-400); RBC Distribution Width 14.9 % (11.5-14.5); Red Blood Cell (RBC) Count 2.29 mill/uL (4.20-5.40); White Blood Cell (WBC) Count 10.3 thou/uL (4.8-10.8)
[2018-05-12 06:55] LABS: Anion Gap 11 mmol/L (10-20); BUN (Urea Nitrogen) 9 mg/dL (7.0-18.7); Calc. Creatinine Clearance 99 mL/min (70-130); Carbon Dioxide 29 mmol/L (22-29); Chloride 95 mmol/L (98-107); Estimated GFR-MDRD Greater than 90; Glucose 162 mg/dL (70-105); Magnesium 1.7 mg/dL (1.6-2.6); Potassium 4.4 mmol/L (3.5-5.1); Sodium 131 mmol/L (136-145)
[2018-05-12] MEDS: FLUoxetine HCl 20 MG CAP PO SCH (07:56)
[2018-05-12] MEDS: Polyethylene Glycol 3350 17 GM Packet PO SCH (07:56)
[2018-05-12] MEDS: Zinc Sulfate 220 MG CAP PO SCH (07:56)
[2018-05-12] MEDS: Insulin Glargine 12 UNITS in Pre-Filled Syringe 1 EACH SC SCH ×2 (07:56→21:15)
[2018-05-12] MEDS: Pantoprazole 40 MG GRANULES PACKET PO SCH (07:56)
[2018-05-12] MEDS: Ascorbic Acid 500 mg Chewable Tablet PO SCH (07:57)
[2018-05-12] MEDS: Multivit, Therapeutic 1 TAB PO SCH (07:57)
[2018-05-12] MEDS: Insulin Regular 300 UNITS/3 ML VIAL SC SCH ×3 (07:58→16:35)
[2018-05-12] MEDS: Lopinavir/Ritonavir 80 MG/20 MG per ML Oral Solution PO SCH ×2 (08:46→21:17)
[2018-05-12] MEDS: Vancomycin HCl 750 MG in Sodium Chloride 0.9% 250 ML 250 ML IVPB SCH ×2 (10:31→11:09)
[2018-05-12] MEDS: fentaNYL Citrate/PF 2,000 MCG in Sodium Chloride 0.9% 60 ML IV PRN (11:18)
[2018-05-12] MEDS: Acetaminophen 500 MG TAB PO SCH (14:13)
[2018-05-12] MEDS: Dextrose 50% Abboject 50 ML SYRINGE SLOW IVP PRN (16:32)
[2018-05-12] MEDS ORDERED: PHENYLEPHRINE-NS 100 MCG/ML 10 ML SYRINGE ONE (18:11)
[2018-05-12] MEDS ORDERED: Fentanyl 100 MCG/2 ML VIAL ONE ×2 (18:55→20:18)
[2018-05-12] MEDS ORDERED: Propofol 500 MG/50 ML VIAL ONE (18:55)
[2018-05-12] MEDS ORDERED: Promethazine HCl 25 MG/ML VIAL SLOW IVP PRN (20:03)
[2018-05-12] MEDS ORDERED: Ondansetron HCl/PF 4 MG/2 ML Vial IVP PRN (20:03)
[2018-05-12] MEDS ORDERED: Promethazine HCl 25 MG/ML VIAL IM PRN (20:03)
--- NOTE | 2018-05-12 22:57 | PRG ---
DATE OF SERVICE: 05/12/2018 SUBJECTIVE: Ms. Baez is going for another revision of her wound, I believe tomorrow. She is feeling better. She has been able to walk few feet earlier today. No headaches. No shortness of breath or chest pain. No cough. She is urinating without problems. Not having diarrhea. OBJECTIVE: VITAL SIGNS: Temperature max 99.3, blood pressure 130/70, pulse 95, respirations 18, and O2 saturation 96%. SKIN: Exam shows wide area of debridement in the perineal area, posterior aspect of the negative pressure dressing. She has a central line. A triple-lumen catheter in the right subclavian location. HEENT: Ocular movements conjugate. Oral cavity moist. NECK: Supple. LUNGS: Symmetric. Clear breath sounds. HEART: S1 and S2. Regular rate. No S3 or S4. ABDOMEN: Soft, not distended, or tender. No ascites. No bladder distention. EXTREMITIES: She moves extremities equally. Cognitive function appears to be intact. LABORATORY DATA: White cell count 10.3, hemoglobin 6.5, platelets 685, and creatinine 0.7. The last wound photo from the shows the wide area of debridement, fresh appearing wound at the base of the perineal gluteal region. The skin surrounding this area does not appear to have a lot of inflammatory changes. 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 The patient going for another revision of her wound tomorrow and should be able to transition to oral antimicrobial therapy probably with Augmentin and Flagyl. Continue anti-retroviral therapy that she has been prescribed here, upon discharge should be back on her previous outpatient regimen. Job ID: [id number]
[2018-05-13] MEDS: Vancomycin HCl 750 MG in Sodium Chloride 0.9% 250 ML 250 ML IVPB SCH ×3 (00:11→22:55)
[2018-05-13] MEDS: fentaNYL Citrate/PF 2,000 MCG in Sodium Chloride 0.9% 60 ML IV PRN ×2 (00:11→12:00)
--- NOTE | 2018-05-13 01:15 | OP ---
DATE OF PROCEDURE: 05/12/2018 PREOPERATIVE DIAGNOSES: Necrotizing fasciitis status post incision and drainage, debridement, open wound, buttocks, perianal, sacral area. ANESTHESIA: Sedation. PROCEDURE: Dressing change under anesthesia. No debridement required. DESCRIPTION OF PROCEDURE: The patient was taken to the operating room in the right lateral decubitus position using a beaulieu bag properly positioned. Wound dressings were removed and wound care team changed her wound VAC. The wound is granulating, looks very good. There is very little slough. I think the wound VAC will take care most of this and no surgical debridement is required. Job ID: [id number]
[2018-05-13] MEDS: Acetaminophen 500 MG TAB PO SCH ×2 (01:16→15:06)
[2018-05-13 07:30] LABS: #Eosinphils 0.2 thou/uL (0.0-0.7); #Lymphocytes 0.9 thou/uL (1.20-3.40); #Neutrophils 8.5 thou/uL (1.40-6.50); %Basophils 0.4 % (0.0-1.0); %Eosinophils 1.6 % (0.0-10.0); %Lymphocytes 8.9 % (21.0-51.0); %Monocytes 9.6 % (0.0-10.0); %Neutrophils 79.6 % (42.0-75.0); Hemoglobin 7.2 g/dL (12.0-16.0); Mean Corpuscular Hemoglobin 29.2 pg (27.0-31.0); Mean Corpuscular Volume 88.4 fL (78.0-98.0); Mean Platelet Volume 5.7 fL (7.4-10.4); Platelet Count 603 thou/uL (130-400); RBC Distribution Width 14.6 % (11.5-14.5); Red Blood Cell (RBC) Count 2.48 mill/uL (4.20-5.40); White Blood Cell (WBC) Count 10.6 thou/uL (4.8-10.8)
[2018-05-13 07:51] LABS: Anion Gap 12 mmol/L (10-20); BUN (Urea Nitrogen) 8 mg/dL (7.0-18.7); Calc. Creatinine Clearance 101 mL/min (70-130); Calcium 8.8 mg/dL (7.8-10.44); Carbon Dioxide 28 mmol/L (22-29); Chloride 99 mmol/L (98-107); Estimated GFR-MDRD Greater than 90; Glucose 145 mg/dL (70-105); Potassium 4.3 mmol/L (3.5-5.1); Sodium 135 mmol/L (136-145)
[2018-05-13] MEDS: Insulin Regular 300 UNITS/3 ML VIAL SC SCH ×2 (07:57→11:23)
[2018-05-13] MEDS: Polyethylene Glycol 3350 17 GM Packet PO SCH (07:57)
[2018-05-13] MEDS: Insulin Glargine 12 UNITS in Pre-Filled Syringe 1 EACH SC SCH (07:57)
[2018-05-13] MEDS: FLUoxetine HCl 20 MG CAP PO SCH (07:58)
[2018-05-13] MEDS: Ascorbic Acid 500 mg Chewable Tablet PO SCH (07:58)
[2018-05-13] MEDS: Zinc Sulfate 220 MG CAP PO SCH (07:58)
[2018-05-13] MEDS: Multivit, Therapeutic 1 TAB PO SCH (07:58)
[2018-05-13] MEDS: Pantoprazole 40 MG GRANULES PACKET PO SCH (07:58)
--- NOTE | 2018-05-13 08:50 | PRG ---
DATE OF SERVICE: SUBJECTIVE: Cortney Baez is doing well today. She went visualization of her wound yesterday in the OR and her wound is actually granulating and no debridement was necessary. VITAL SIGNS: Temperature 99.1 degrees, 95, blood pressure 114/68. Yesterday, her hemoglobin was 6.5. She was given 1 unit of blood last night and hemoglobin this morning is 7.2. She should continue on vitamin, iron, zinc, vitamin C. Her wound care now will be done at the bedside. She is stable for discharge to rehab. She is able to stand some, take a few steps. She would benefit from rehab. As far as her intravenous antibiotics, her wound is no longer infected. There is minimal slough and abundant granulation tissue. From my standpoint, antibiotics could be discontinued. This will be per Dr. Ocampo. She has a Amaro catheter. We will leave the patient be transferred to rehab with oral intravenous antibiotics per Dr. Ocampo' recommendations. Job ID: [id number]
[2018-05-13] MEDS: Lopinavir/Ritonavir 80 MG/20 MG per ML Oral Solution PO SCH ×2 (12:13→20:18)
--- NOTE | 2018-05-13 14:16 | PDOC.PN ---
- Subjective Encounter Start Date: 05/13/18 (f/u diabetes) Encounter Start Time: 14:14 Subjective: Pt able to sit up for 2 hours today. Denies any complaints or concerns -: denies n/v. reports pain is controlled. - Objective Resuscitation Status - Order Detail: 04/26/18 08:43 Resuscitation Status Routine Resuscitation Status: FULL: Full Resuscitation Discussed with: patient Vital Signs & Weight: Vital Signs (12 hours) Temp Pulse Resp BP BP Pulse Ox 05/13/18 08:00 94 L 05/13/18 07:39 99.1 F 95 18 114/68 94 L 05/13/18 05:02 98.8 F 90 20 104/72 92 L Weight Admit Weight 118 lb 4.8 oz Weight 127 lb 3.307 oz Most Recent Monitor Data Heart Rate from ECG 85 NIBP 111/73 NIBP BP-Mean 85 Respiration from ECG 19 SpO2 99 I&O: 05/12/18 05/13/18 05/14/18 06:59 06:59 06:59 Intake Total 1212.0 1591 Output Total 3700 Balance -2488.0 1591 Result Diagrams: 05/13/18 07:15 05/13/18 07:15 Additional Labs: Accuchecks 05/13/18 05/13/18 05/12/18 11:18 04:30 21:12 POC Glucose 78 153 H 110 05/12/18 05/12/18 05/12/18 20:01 18:50 16:27 POC Glucose 73 92 69 L Phys Exam - Physical Examination Respiratory: no wheezing, no rales, no rhonchi Cardiovascular: RRR, no significant murmur Gastrointestinal: soft, non-tender, no distention, positive bowel sounds Musculoskeletal: no edema Neurological: non-focal, moves all 4 limbs Psychiatric: normal affect Deviation from normal: erythema in the inguinal area - no drainage. Dx/Plan (1) Perirectal abscess Code(s): K61.1 - RECTAL ABSCESS Status: Acute (2) Physical deconditioning Code(s): R53.81 - OTHER MALAISE Status: Chronic (3) Severe protein-calorie malnutrition Code(s): E43 - UNSPECIFIED SEVERE PROTEIN-CALORIE MALNUTRITION Status: Chronic (4) Asthma Code(s): J45.909 - UNSPECIFIED ASTHMA, UNCOMPLICATED Status: Chronic Qualifiers: Asthma severity: mild Asthma persistence: intermittent Asthma complication type: uncomplicated Qualified Code(s): J45.20 - Mild intermittent asthma, uncomplicated (5) Diabetes Code(s): E11.9 - TYPE 2 DIABETES MELLITUS WITHOUT COMPLICATIONS Status: Chronic Qualifiers: Diabetes mellitus type: type 2 Diabetes mellitus intermediate project manager insulin use: with intermediate project manager use Diabetes mellitus complication status: with unspecified complications Qualified Code(s): E11.8 - Type 2 diabetes mellitus with unspecified complications; Z79.4 - rat exterminator (current) use of insulin (6) HIV (human immunodeficiency virus infection) Status: Chronic (7) Anemia Code(s): D64.9 - ANEMIA, UNSPECIFIED Status: Acute - Plan * Pt with low blood sugars today - all meds will need to be titrated * change lantus to 6 units once daily - hold if blood sugar less than 100 * d/c the scheduled regular insulin with meals * d/c aggressive sliding scale and start mild scale. * wound care consult for inguinal area - to help protect skin * ostomy care * post-op care and pain management per Gen Surgery and Anesthesia * continue pt/ot and case management working on placement with rehab * continue home anti-retrovirals * continue abx per Dr. Ocampo * * dvt prophy - scd's * gi prophy - not indicated * code status full * * pt remains at high risk in current condition * No questions or further needs at end of eval from pt/Mom
[2018-05-13] MEDS ORDERED: fentaNYL Citrate/PF 2,000 MCG in Sodium Chloride 0.9% 60 ML IV PRN (21:00)
[2018-05-14] MEDS: Acetaminophen 500 MG TAB PO SCH ×2 (04:09→13:33)
[2018-05-14 06:29] LABS: #Eosinphils 0.2 thou/uL (0.0-0.7); #Lymphocytes 0.7 thou/uL (1.20-3.40); #Monocytes 0.9 thou/uL (0.11-0.59); #Neutrophils 9.9 thou/uL (1.40-6.50); %Basophils 0.3 % (0.0-1.0); %Eosinophils 1.5 % (0.0-10.0); %Lymphocytes 6.2 % (21.0-51.0); %Monocytes 7.3 % (0.0-10.0); %Neutrophils 84.7 % (42.0-75.0); Mean Corpuscular HGB CONC 33.3 g/dL (32.0-36.0); Mean Corpuscular Hemoglobin 29.6 pg (27.0-31.0); Mean Platelet Volume 5.7 fL (7.4-10.4); Platelet Count 602 thou/uL (130-400); RBC Distribution Width 14.6 % (11.5-14.5); Red Blood Cell (RBC) Count 2.71 mill/uL (4.20-5.40); White Blood Cell (WBC) Count 11.6 thou/uL (4.8-10.8)
[2018-05-14 06:50] LABS: Anion Gap 12 mmol/L (10-20); BUN (Urea Nitrogen) 9 mg/dL (7.0-18.7); Calc. Creatinine Clearance 91 mL/min (70-130); Calcium 9.2 mg/dL (7.8-10.44); Carbon Dioxide 29 mmol/L (22-29); Chloride 97 mmol/L (98-107); Estimated GFR-MDRD Greater than 90; Glucose 224 mg/dL (70-105); Potassium 4.4 mmol/L (3.5-5.1); Sodium 134 mmol/L (136-145)
[2018-05-14] MEDS: Insulin Glargine 6 UNITS in Pre-Filled Syringe 1 EACH SC SCH (08:04)
[2018-05-14] MEDS: Lopinavir/Ritonavir 80 MG/20 MG per ML Oral Solution PO SCH ×2 (08:04→19:58)
[2018-05-14] MEDS: Pantoprazole 40 MG GRANULES PACKET PO SCH (08:05)
[2018-05-14] MEDS: Polyethylene Glycol 3350 17 GM Packet PO SCH (08:05)
[2018-05-14] MEDS: Ascorbic Acid 500 mg Chewable Tablet PO SCH (08:05)
[2018-05-14] MEDS: Multivit, Therapeutic 1 TAB PO SCH ×2 (08:05→08:06)
[2018-05-14] MEDS: FLUoxetine HCl 20 MG CAP PO SCH (08:12)
[2018-05-14] MEDS: Zinc Sulfate 220 MG CAP PO SCH (08:12)
[2018-05-14] MEDS ORDERED: traMADol HCl 50 MG TAB PO PRN (09:46)
[2018-05-14] MEDS ORDERED: Fentanyl 100 MCG/2 ML VIAL SLOW IVP PRN ×3 (09:46→20:38)
--- NOTE | 2018-05-14 09:48 | PDOC.EVN ---
Event Note - Event Note Event Note: Called by RN for concern of pain meds - has an order to d/c SENIOR FINANCIAL CONSULTANT pump and only has tylenol ordered. will order tramadol 1-2 tabs q6h prn, and prn fentanyl for breakthrough pain.
[2018-05-14] MEDS ORDERED: HYDROcodone/Acetaminophen 10/325 mg Tablet PO PRN (10:49)
[2018-05-14] MEDS: Vancomycin HCl 750 MG in Sodium Chloride 0.9% 250 ML 250 ML IVPB SCH (11:02)
[2018-05-14] MEDS: HYDROcodone/Acetaminophen 10/325 mg Tablet PO PRN ×4 (11:02→23:57)
[2018-05-14] MEDS: traMADol HCl 50 MG TAB PO PRN ×2 (14:59→21:55)
--- NOTE | 2018-05-14 15:19 | PDOC.PN ---
- Subjective Encounter Start Date: 05/14/18 (f/u diabetes) Encounter Start Time: 15:17 Subjective: Pt c/o pain currently at 8-9/10 in severity. last pain medicine was a few -: hours ago. Denies n/v - Objective Resuscitation Status - Order Detail: 04/26/18 08:43 Resuscitation Status Routine Resuscitation Status: FULL: Full Resuscitation Discussed with: patient Vital Signs & Weight: Vital Signs (12 hours) Temp Pulse Resp BP Pulse Ox 05/14/18 08:00 99 05/14/18 07:19 98.5 F 89 16 118/77 99 Weight Admit Weight 118 lb 4.8 oz Weight 127 lb 3.307 oz Most Recent Monitor Data Heart Rate from ECG 85 NIBP 111/73 NIBP BP-Mean 85 Respiration from ECG 19 SpO2 99 I&O: 05/13/18 05/14/18 05/15/18 06:59 06:59 06:59 Intake Total 1591 Output Total 1150 Balance 1591 -1150 Result Diagrams: 05/14/18 06:04 05/14/18 06:04 Additional Labs: Accuchecks 05/14/18 05/14/18 05/13/18 11:16 04:16 20:05 POC Glucose 291 H 198 H 198 H 05/13/18 16:13 POC Glucose 184 H Phys Exam - Physical Examination Constitutional: NAD Respiratory: no wheezing, no rales, no rhonchi Cardiovascular: RRR, no significant murmur Gastrointestinal: soft, non-tender, no distention, positive bowel sounds Musculoskeletal: no edema Psychiatric: normal affect Deviation from normal: tearful with pain Deviation from normal: wound vac in place Dx/Plan (1) Perirectal abscess Code(s): K61.1 - RECTAL ABSCESS Status: Acute (2) Physical deconditioning Code(s): R53.81 - OTHER MALAISE Status: Chronic (3) Severe protein-calorie malnutrition Code(s): E43 - UNSPECIFIED SEVERE PROTEIN-CALORIE MALNUTRITION Status: Chronic (4) Asthma Code(s): J45.909 - UNSPECIFIED ASTHMA, UNCOMPLICATED Status: Chronic Qualifiers: Asthma severity: mild Asthma persistence: intermittent Asthma complication type: uncomplicated Qualified Code(s): J45.20 - Mild intermittent asthma, uncomplicated (5) Diabetes Code(s): E11.9 - TYPE 2 DIABETES MELLITUS WITHOUT COMPLICATIONS Status: Chronic Qualifiers: Diabetes mellitus type: type 2 Diabetes mellitus adjunct faculty for medical terminology insulin use: with adjunct faculty for medical terminology use Diabetes mellitus complication status: with unspecified complications Qualified Code(s): E11.8 - Type 2 diabetes mellitus with unspecified complications; Z79.4 - adjunct faculty for medical terminology (current) use of insulin (6) HIV (human immunodeficiency virus infection) Status: Chronic (7) Anemia Code(s): D64.9 - ANEMIA, UNSPECIFIED Status: Acute - Plan * * Pt with increasing blood sugars today to the low 200's - will add lantus 6 units at night and continue to titrate. 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 Adding tramadol to norco to have 2 oral pain meds available, and IV fentanyl for breakthrough pain * Discussed with Dr. Ocampo - no further abx needed. * resume home anti-retrovirals when discharged - Mom will bring in the bottles tomorrow. * * Pt has been accepted to rehab - however her pain is not controlled. Recommend she is here overnight with this change to 2 oral pain meds and if tolerating then plan for d/c tomorrow. * * dvt prophy - scd's * gi prophy - not indicated * code status full * * pt remains at high risk in current condition * No questions or further needs at end of eval from pt/Mom.
[2018-05-14] MEDS: HumaLOG 300 UNITS/3 ML VIAL SC PRN (16:11)
[2018-05-14] MEDS ORDERED: Insulin Glargine 6 UNITS in Pre-Filled Syringe 1 EACH SC SCH (21:00)
[2018-05-15] MEDS: HYDROcodone/Acetaminophen 10/325 mg Tablet PO PRN ×3 (06:08→14:56)
[2018-05-15] MEDS: HumaLOG 300 UNITS/3 ML VIAL SC PRN (06:10)
[2018-05-15 07:50] VITALS: BP 105/65; TEMP 98.9
[2018-05-15] MEDS: Pantoprazole 40 MG GRANULES PACKET PO SCH (08:19)
[2018-05-15] MEDS: Polyethylene Glycol 3350 17 GM Packet PO SCH (08:19)
[2018-05-15] MEDS: Zinc Sulfate 220 MG CAP PO SCH (08:19)
[2018-05-15] MEDS: Ascorbic Acid 500 mg Chewable Tablet PO SCH (08:20)
[2018-05-15] MEDS: Multivit, Therapeutic 1 TAB PO SCH (08:20)
[2018-05-15] MEDS: FLUoxetine HCl 20 MG CAP PO SCH (08:20)
[2018-05-15] MEDS: traMADol HCl 50 MG TAB PO PRN ×2 (08:21→13:45)
[2018-05-15] MEDS: Insulin Glargine 6 UNITS in Pre-Filled Syringe 1 EACH SC SCH (08:21)
[2018-05-15] MEDS: Lopinavir/Ritonavir 80 MG/20 MG per ML Oral Solution PO SCH (11:46)
--- NOTE | 2018-05-15 14:31 | DIS ---
DATE OF ADMISSION: 04/26/2018 DATE OF DISCHARGE: PRIMARY CARE PHYSICIAN: Dr. Rosa Toussaint. PRIMARY INFECTIOUS DISEASE DOCTOR: Dr. Vinod Ocampo. PRIMARY SURGEON: Dr. Dennis Mart. CONSULTATIONS: 1. Pulmonary Critical Care, Dr. Lawrence Bustos, 04/30/2018. 2. Infectious Disease, Dr. Vinod Ocampo, 04/26/2018. 3. Pulmonary Critical Care, Dr. Tej Taveras, 04/26/2018. 4. General surgery, Dr. eDnnis Mart, 04/26/2018. PROCEDURES: 1. On 04/26/2018, sharp excisional debridement of skin, subcutaneous tissue, fascia, and evacuation of the extensive left perirectal abscess and placement of left subclavian tunneled central venous catheter. 2. Repeat irrigation and debridement on 04/27/[address] Dennis Mart. 3. On 04/30/[address] Lawrence Bustos with intubation and bronchoalveolar lavage. 4. On 04/30/[address] Tristan Montgomery, debridement of buttock wound. 5. Repeat debridements on 05/06, 05/09, and 05/12 with VAC changing by Dr. Dennis Mart MD. HISTORY AND PHYSICAL: Ms. Baez is a 37-year-old female, history of HIV, diabetes, asthma with perirectal pain and altered mental status. Workup in the ER showed an extensive perirectal abscess and necrotizing fasciitis of the buttock. We were called for admission. She is on vancomycin and Zosyn. HOSPITAL COURSE: The patient was seen and examined by Dr. Stanley. The patient was placed in inpatient status. Dr. Ocampo was consulted. Surgery was consulted. The patient was seen by Dr. Dennis Mart the same day, taken to the operating room emergently for debridement and was admitted to the ICU. The patient slowly improved after initial respiratory failure and bronchoalveolar lavage. She continued in the ICU for about a week. She had repeat debridements as per the procedure listed above. Ultimately, she was transferred to the floor to continue wound care. She continued to have significant pain with wound VAC changes, was ultimately weaned off IV pain medications on the day of admission. Needing them only for wound VAC changes. She completed the therapy of her antibiotics for her polymicrobial infection consisting of Strep anginosus and anaerobic gram positive, gram variable rods and anaerobic cocci. Her pain became better controlled. She is tolerating VAC changes and by 05/15/2018, she was stable for discharge to inpatient rehab to continue wound care and physical therapy. PHYSICAL EXAMINATION: The patient was seen and examined on the discharge. Discharge plan and disposition discussed with patient and her family face to face at the bedside. DISCHARGE MEDICATIONS: Please see medicine reconciliation sheet. DISCHARGE ACTIVITY: As tolerated. DISCHARGE DIET: No restrictions. Ensure t.i.d. and [place] b.i.d. were ordered as well as multivitamin and zinc. DISCHARGE CONDITION: Stable. DISPOSITION: Discharged to [facility]. FOLLOWUP APPOINTMENTS: 1. Primary care physician within a week or so. 2. Dr. Ocampo as per his clinic. 3. Dr. Mart per his schedule. Job ID: [id number]
== END 2018-05-15 16:15 | DRG 969 ==
LOC: ERS 22:31 → SURG A 04-26 00:30 → IMCU/EMU 04-26 11:59 → SURG B 04-27 16:38 → IMCU/EMU 04-30 09:59 → CCU 04-30 13:28 → T4-A 05-05 18:46
PROVIDERS: ADMIT Internal Medicine; ATTEND Internal Medicine
PROC: 0KBP0ZZ Excision of Left Hip Muscle, Open Approach (ICD-10-PCS; 2018-04-26)
PROC: 0JB90ZZ Excision of Buttock Subcutaneous Tissue and Fascia, Open Approach (ICD-10-PCS; principal; 2018-04-27)
PROC: 0D1N4Z4 Bypass Sigmoid Colon to Cutaneous, Percutaneous Endoscopic Approach (ICD-10-PCS; 2018-04-27)
PROC: 30233N1 Transfusion of Nonautologous Red Blood Cells into Peripheral Vein, Percutaneous Approach (ICD-10-PCS; 2018-04-27)
PROC: 0JB90ZZ Excision of Buttock Subcutaneous Tissue and Fascia, Open Approach (ICD-10-PCS; 2018-04-29)
PROC: 0JBB0ZZ Excision of Perineum Subcutaneous Tissue and Fascia, Open Approach (ICD-10-PCS; 2018-04-29)
PROC: 0KBP0ZZ Excision of Left Hip Muscle, Open Approach (ICD-10-PCS; 2018-04-30)
PROC: 0JB70ZZ Excision of Back Subcutaneous Tissue and Fascia, Open Approach (ICD-10-PCS; 2018-04-30)
PROC: 0JB90ZZ Excision of Buttock Subcutaneous Tissue and Fascia, Open Approach (ICD-10-PCS; 2018-04-30)
PROC: 0BH17EZ Insertion of Endotracheal Airway into Trachea, Via Natural or Artificial Opening (ICD-10-PCS; 2018-04-30)
PROC: 0B9D8ZX Drainage of Right Middle Lung Lobe, Via Natural or Artificial Opening Endoscopic, Diagnostic (ICD-10-PCS; 2018-04-30)
PROC: 5A1945Z Respiratory Ventilation, 24-96 Consecutive Hours (ICD-10-PCS; 2018-04-30)
PROC: 0JB90ZZ Excision of Buttock Subcutaneous Tissue and Fascia, Open Approach (ICD-10-PCS; 2018-05-03)
PROC: 0JB90ZZ Excision of Buttock Subcutaneous Tissue and Fascia, Open Approach (ICD-10-PCS; 2018-05-06)
PROC: 0JBB0ZZ Excision of Perineum Subcutaneous Tissue and Fascia, Open Approach (ICD-10-PCS; 2018-05-06)
PROC: 0JB70ZZ Excision of Back Subcutaneous Tissue and Fascia, Open Approach (ICD-10-PCS; 2018-05-06)
PROC: 02HV33Z Insertion of Infusion Device into Superior Vena Cava, Percutaneous Approach (ICD-10-PCS; 2018-05-06)
PROC: B548ZZA Ultrasonography of Superior Vena Cava, Guidance (ICD-10-PCS; 2018-05-06)
PROC: 0JB90ZZ Excision of Buttock Subcutaneous Tissue and Fascia, Open Approach (ICD-10-PCS; 2018-05-09)
PROC: 2W05X6Z Change Pressure Dressing on Back (ICD-10-PCS; 2018-05-12)
DX: A40.9 Streptococcal sepsis, unspecified (principal); M72.6 Necrotizing fasciitis; B20 Human immunodeficiency virus [HIV] disease; J96.01 Acute respiratory failure with hypoxia; E43 Unspecified severe protein-calorie malnutrition; B59 Pneumocystosis; L02.31 Cutaneous abscess of buttock; E87.1 Hypo-osmolality and hyponatremia; N17.9 Acute kidney failure, unspecified; K61.1 Rectal abscess; F17.210 Nicotine dependence, cigarettes, uncomplicated; R33.9 Retention of urine, unspecified; L73.9 Follicular disorder, unspecified; E83.52 Hypercalcemia; E86.0 Dehydration; J45.20 Mild intermittent asthma, uncomplicated; E87.6 Hypokalemia; R60.1 Generalized edema; Z68.24 Body mass index [BMI] 24.0-24.9, adult; R62.7 Adult failure to thrive; D63.8 Anemia in other chronic diseases classified elsewhere; N76.89 Other specified inflammation of vagina and vulva; E10.65 Type 1 diabetes mellitus with hyperglycemia; Z79.4 Long term (current) use of insulin; Z87.11 Personal history of peptic ulcer disease; Z80.9 Family history of malignant neoplasm, unspecified; Z82.49 Family history of ischemic heart disease and other diseases of the circulatory system
CPT/HCPCS: 36415; 36416; 36430; 51702; 71045; 74177; 80048; 80053; 80202; 81003; 81015; 82010; 82330; 82803; 82805; 83605; 83735; 84100; 84134; 85025; 85048; 85610; 86361; 86850; 86900; 86901; 87040; 87070; 87077; 87086; 87102; 87116; 87186; 87205; 87206; 87899; 88112; 88312; 94002; 94003; 96365; 96367; C1751; C9113; C9399; G8978-GP-CM; G8979-GP-CK; G8987-GO-CL; G8987-GO-CM; G8988-GO-CJ; G8988-GO-CK; G8996-GN-CK; G8997-GN-CJ; J0131; J0670; J1644; J1815; J1940; J2001; J2060; J2185; J2250; J2270; J2310; J2405; J2543; J2704; J3010; J3370; J3480; J3490; J7050; P9016; P9045; P9047; S0028

== ENCOUNTER 2018-05-27 09:59 | Outpatient (CLI) | payer OTHER ==
[2018-05-27] MEDS ORDERED: Lidocaine 4% Topical Sol 50 ML BOT ONE (19:40)
[2018-05-27] MEDS ORDERED: Sodium Chloride 0.9% 15 ML NEB ONE (19:40)
== END 2018-05-27 10:00 | disposition home or self-care (01) ==
LOC: WCC 09:59
PROVIDERS: ATTEND Family Medicine
DX: T81.89XD Other complications of procedures, not elsewhere classified, subsequent encounter (principal)
CPT/HCPCS: 97606; A4218; J2001

== ENCOUNTER 2018-05-31 14:45 | Outpatient (CLI) | payer OTHER ==
[~2018-05-31 14:45] MED LIST changes: -Iopamidol 370 76% 100 ML VIAL ONE; +Lidocaine 4% Topical Sol 50 ML BOT ONE; +Sodium Chloride 0.9% 15 ML NEB ONE
--- NOTE | 2018-05-31 17:56 | PRG ---
DATE OF SERVICE: 05/31/2018 SUBJECTIVE: Cortney Baez is seen in Wound Care. I was asked to review her wound in Wound Care. She has a laparoscopic colostomy for diversion, she has a Bass catheter in place, she was sent home with. She has wound VAC, perianal and buttock wounds. Wound is granulating. The Wound Care nurse has been taking an extraordinary amount of time removing the wound VAC. I removed a portion of it and the patient became teary-eyed and almost hysterical. Wound Care nurse reported whenever they touched her, she behaves the same. The wound looks good, healthy, granulating. She has a Amaro catheter in place that she is not using. She has completed her intravenous antibiotics. I will need to remove that. They will visit my office for me to remove that. Dr. Alfonzo Beverly has seen her regarding wound care and grafting in the future. We will keep her colostomy until this wound is covered and we will have to check her anal function and make sure sphincters are intact prior to reversing her colostomy in the future. She requested more pain medications and she will take Ultram and Tylenol for pain throughout the day, but takes [place] prior to dressing changes. I gave her [place] 5/325, #40. I gave her Ultram 50 mg, #40 with three refills. Job ID: [id number]
== END 2018-05-31 14:46 | disposition home or self-care (01) ==
LOC: WCC 14:45
PROVIDERS: ATTEND Family Medicine
DX: S31.809D Unspecified open wound of unspecified buttock, subsequent encounter (principal); S31.839D Unspecified open wound of anus, subsequent encounter; Z93.3 Colostomy status
CPT/HCPCS: 97606; A4218; J2001

== ENCOUNTER 2018-06-02 15:00 | Outpatient (CLI) | payer OTHER | END 2018-06-02 15:01 | disposition home or self-care (01) | LOC: WCC 15:00 | PROVIDERS: ATTEND Family Medicine | DX: T81.89XD Other complications of procedures, not elsewhere classified, subsequent encounter (principal) | CPT/HCPCS: 97606; A4218 ==

== ENCOUNTER 2018-06-04 16:06 | Outpatient (CLI) | payer OTHER | END 2018-06-04 16:07 | disposition home or self-care (01) | LOC: WCC 16:06 | PROVIDERS: ATTEND Family Medicine | DX: T81.89XD Other complications of procedures, not elsewhere classified, subsequent encounter (principal) | CPT/HCPCS: 97606; A4218 ==

== ENCOUNTER 2018-06-07 11:06 | Outpatient (CLI) | payer OTHER ==
[2018-06-07] MEDS ORDERED: Sodium Chloride 0.9% 15 ML NEB ONE (11:11)
[2018-06-07] MEDS ORDERED: Lidocaine 4% Topical Sol 50 ML BOT ONE (11:11)
== END 2018-06-07 11:07 | disposition home or self-care (01) ==
LOC: WCC 11:06
PROVIDERS: ATTEND Family Medicine
DX: T81.89XD Other complications of procedures, not elsewhere classified, subsequent encounter (principal)
CPT/HCPCS: 97606; A4218

== ENCOUNTER 2018-06-09 14:29 | Outpatient (CLI) | payer OTHER ==
[2018-06-09] MEDS ORDERED: Lidocaine 2% PF 100 mg/5 ml Syringe ONE ×2 (15:42→20:05)
[2018-06-09] MEDS ORDERED: Sodium Chloride 0.9% 15 ML NEB ONE ×2 (15:42→20:05)
== END 2018-06-09 14:30 | disposition home or self-care (01) ==
LOC: WCC 14:29
PROVIDERS: ATTEND Family Medicine
DX: T81.89XD Other complications of procedures, not elsewhere classified, subsequent encounter (principal)
CPT/HCPCS: 97606; A4218; J2001

== ENCOUNTER 2018-06-11 14:46 | Outpatient (CLI) | payer OTHER | END 2018-06-11 14:47 | disposition home or self-care (01) | LOC: WCC 14:46 | PROVIDERS: ATTEND Family Medicine | DX: T81.89XD Other complications of procedures, not elsewhere classified, subsequent encounter (principal) | CPT/HCPCS: 97606; A4218 ==

== ENCOUNTER 2018-06-14 14:45 | Outpatient (CLI) | payer OTHER ==
[2018-06-14] MEDS ORDERED: Lidocaine 4% Topical Sol 50 ML BOT ONE (15:00)
== END 2018-06-14 14:46 | disposition home or self-care (01) ==
LOC: WCC 14:45
PROVIDERS: ATTEND Family Medicine
DX: T81.89XD Other complications of procedures, not elsewhere classified, subsequent encounter (principal)
CPT/HCPCS: 97606

== ENCOUNTER 2018-06-16 14:27 | Outpatient (CLI) | payer OTHER ==
[2018-06-16] MEDS ORDERED: Sodium Chloride 0.9% 15 ML NEB ONE (15:00)
[2018-06-16] MEDS ORDERED: Lidocaine 4% Topical Sol 50 ML BOT ONE (15:00)
== END 2018-06-16 14:28 | disposition home or self-care (01) ==
LOC: WCC 14:27
PROVIDERS: ATTEND Family Medicine
DX: T81.89XD Other complications of procedures, not elsewhere classified, subsequent encounter (principal)
CPT/HCPCS: 97606; A4218

== ENCOUNTER 2018-06-18 15:35 | Outpatient (CLI) | payer OTHER ==
[~2018-06-18 15:35] MED LIST changes: -Lidocaine 4% Topical Sol 50 ML BOT ONE
== END 2018-06-18 15:36 | disposition home or self-care (01) ==
LOC: WCC 15:35
PROVIDERS: ATTEND Family Medicine
DX: T81.89XD Other complications of procedures, not elsewhere classified, subsequent encounter (principal)
CPT/HCPCS: 97606; A4218

== ENCOUNTER 2018-06-22 22:58 | Emergency (ER) | payer OTHER | END 2018-06-23 00:19 | disposition home or self-care (01) | LOC: ERS 22:58 | DX: K94.01 Colostomy hemorrhage (principal); F32.9 Major depressive disorder, single episode, unspecified; F17.210 Nicotine dependence, cigarettes, uncomplicated; Z79.899 Other long term (current) drug therapy; E10.9 Type 1 diabetes mellitus without complications; B20 Human immunodeficiency virus [HIV] disease; J45.909 Unspecified asthma, uncomplicated | CPT/HCPCS: 99282 ==

== ENCOUNTER 2018-06-25 15:00 | Outpatient (CLI) | payer OTHER | END 2018-06-25 15:01 | disposition home or self-care (01) | LOC: WCC 15:00 | PROVIDERS: ATTEND Family Medicine | DX: T81.89XD Other complications of procedures, not elsewhere classified, subsequent encounter (principal) | CPT/HCPCS: 97602; A4218 ==

== ENCOUNTER 2018-06-30 14:17 | Outpatient (CLI) | payer OTHER ==
--- NOTE | 2018-06-30 15:17 | PRG ---
DATE OF SERVICE: 06/30/2018 HISTORY: Ms. Cortney Baez is a very pleasant 37-year-old, who presents to the Wound Center for evaluation of a wound subsequent to surgery for a perirectal abscess on 04/26/2018. On 04/27/2018, the patient underwent debridement in addition to laparoscopic diverting colostomy. Ms. Baez subsequently underwent intraoperative debridement on 5 occasions. The patient is to undergo graft placement by Plastic Surgery within the next few weeks. The patient is now receiving wet-to-dry dressing changes as per Dr. Beverly. PHYSICAL EXAMINATION: VITAL SIGNS: Temperature 98.0, pulse 100, respirations 19, blood pressure 135/78. Accu-Chek 266. EXTREMITIES: A wound subsequent to surgery for perirectal abscess with multiple subsequent debridements is present. The dimensions of the wound are approximately 11.0 x 4.6 cm. Granulation tissue is present within the wound margins. No purulent drainage is associated with the wound. No erythema of the skin surrounding the wound is present. No maceration of the skin of the periwound is noted. ASSESSMENT AND PLAN: 1. Wound subsequent to surgery for perirectal abscess on 04/26/2018 followed by multiple subsequent debridements. The patient is to undergo graft placement by Plastic Surgery within the next few weeks. As per Dr. Beverly, the patient will continue wet-to-dry dressing changes until her admission for graft placement. I will see Ms. Baez again in 1 week. 2. Human immunodeficiency virus/acquired immunodeficiency syndrome. 3. History of anemia. 4. Asthma. 5. Ulcerative esophagitis. 6. Diabetes mellitus. Job ID: [id number]
[2018-06-30] MEDS ORDERED: Sodium Chloride 0.9% 15 ML NEB ONE (16:10)
== END 2018-06-30 14:18 | disposition home or self-care (01) ==
LOC: WCC 14:17
PROVIDERS: ATTEND Family Medicine
DX: T81.89XD Other complications of procedures, not elsewhere classified, subsequent encounter (principal); B20 Human immunodeficiency virus [HIV] disease; J45.909 Unspecified asthma, uncomplicated; K22.10 Ulcer of esophagus without bleeding; E11.9 Type 2 diabetes mellitus without complications; Z86.2 Personal history of diseases of the blood and blood-forming organs and certain disorders involving the immune mechanism
CPT/HCPCS: 97602; A4218

== ENCOUNTER 2018-07-07 14:41 | Outpatient (CLI) | payer OTHER ==
--- NOTE | 2018-07-07 14:07 | PRG ---
DATE OF SERVICE: 07/07/2018 HISTORY: Ms. Cortney Baez is a very pleasant 37-year-old, who presents to the Wound Center for evaluation of a wound subsequent to surgery for a perirectal abscess on 04/26/2018. On 04/27/2018, the patient underwent debridement in addition to laparoscopic diverting colostomy. Ms. Baez subsequently underwent intraoperative debridement on five occasions. The patient is to undergo graft placement by Plastic Surgery in 2 days. The patient is presently receiving wet-to-dry dressing changes as per Dr. Beverly. PHYSICAL EXAMINATION: VITAL SIGNS: Temperature 99.0, pulse 107, respirations 21, and blood pressure 151/72. Accu-Chek 198. EXTREMITIES: A wound subsequent to surgery for perirectal abscess with multiple subsequent debridements is present. The dimensions of the wound are approximately 11.7 x 3.5 cm. Granulation tissue is present within the wound margins. No purulent drainage is associated with the wound. No erythema of the skin surrounding the wound is present. No maceration of the skin of the periwound is noted. ASSESSMENT AND PLAN: 1. Wound subsequent to surgery for perirectal abscess on 04/26/2018 followed by multiple subsequent debridements. The patient is to undergo graft placement by Plastic Surgery in [address] Beverly, the patient will continue wet-to-dry dressing changes until her admission for graft placement. I will see Ms. Baez again as needed after graft placement by Plastic Surgery. 2. Human immunodeficiency virus/acquired immunodeficiency syndrome. 3. History of anemia. 4. Asthma. 5. Ulcerative esophagitis. 6. Diabetes mellitus. Job ID: [id number]
[2018-07-07] MEDS ORDERED: Sodium Chloride 0.9% 15 ML NEB ONE (18:00)
== END 2018-07-07 14:42 | disposition home or self-care (01) ==
LOC: WCC 14:41
PROVIDERS: ATTEND Family Medicine
DX: T81.89XA Other complications of procedures, not elsewhere classified, initial encounter (principal); E11.622 Type 2 diabetes mellitus with other skin ulcer; B20 Human immunodeficiency virus [HIV] disease; J45.909 Unspecified asthma, uncomplicated; K22.10 Ulcer of esophagus without bleeding; Z86.2 Personal history of diseases of the blood and blood-forming organs and certain disorders involving the immune mechanism
CPT/HCPCS: A4218

== ENCOUNTER 2018-07-09 11:09 | Day surgery (SDC) | payer OTHER ==
[2018-07-08 13:00] VITALS: BMI 21.3
[2018-07-09] MEDS ORDERED: Heparin 5,000 UNITS/ML VIAL ONE (13:32)
[2018-07-09] MEDS ORDERED: Bupivacaine HCl 0.5%/Epinephrine 1:200,000/PF 30 ml Vial ONE (13:35)
[2018-07-09] MEDS ORDERED: Rocuronium Bromide 10 MG/ML (10ML VIAL) ONE (14:13)
[2018-07-09] MEDS ORDERED: Glycopyrrolate 0.2 MG/ML 5 ML SYRINGE ONE (14:13)
[2018-07-09] MEDS ORDERED: Lidocaine 1% PF 5 ML VIAL ONE (14:13)
[2018-07-09] MEDS ORDERED: PROPOFOL 200 MG/20 ML VIAL ONE (14:13)
[2018-07-09] MEDS ORDERED: PHENYLEPHRINE-NS 100 MCG/ML 10 ML SYRINGE ONE (14:13)
[2018-07-09] MEDS ORDERED: Midazolam HCl 2 mg/2 ml Vial ONE (14:14)
[2018-07-09] MEDS ORDERED: Fentanyl 100 MCG/2 ML VIAL ONE (14:14)
[2018-07-09 14:18] LABS: #Basophils 0.1 thou/uL (0.0-0.2); #Eosinphils 0.1 thou/uL (0.0-0.7); #Lymphocytes 1.4 thou/uL (1.20-3.40); #Monocytes 0.3 thou/uL (0.11-0.59); #Neutrophils 4.6 thou/uL (1.40-6.50); %Basophils 1.1 % (0.0-1.0); %Eosinophils 0.9 % (0.0-10.0); %Lymphocytes 21.6 % (21.0-51.0); %Neutrophils 71.4 % (42.0-75.0); Hemoglobin 9.7 g/dL (12.0-16.0); Mean Corpuscular HGB CONC 30.6 g/dL (32.0-36.0); Mean Corpuscular Volume 88.4 fL (78.0-98.0); Mean Platelet Volume 6.1 fL (7.4-10.4); Platelet Count 504 thou/uL (130-400); RBC Distribution Width 15.7 % (11.5-14.5); Red Blood Cell (RBC) Count 3.59 mill/uL (4.20-5.40); White Blood Cell (WBC) Count 6.5 thou/uL (4.8-10.8)
[2018-07-09 14:37] LABS: Anion Gap 14 mmol/L (10-20); BUN (Urea Nitrogen) 27 mg/dL (7.0-18.7); Calc. Creatinine Clearance 62 mL/min (70-130); Calcium 10.1 mg/dL (7.8-10.44); Carbon Dioxide 23 mmol/L (22-29); Chloride 103 mmol/L (98-107); Estimated GFR-MDRD 76; Glucose 245 mg/dL (70-105); Sodium 135 mmol/L (136-145)
[2018-07-09] MEDS ORDERED: EPINEPHrine 1 MG/ML AMP ONE (15:05)
--- NOTE | 2018-07-12 09:35 | OP ---
DATE OF PROCEDURE: 07/09/2018 THERAPY TECH SURGEON: Alfonzo Beverly MD PREOPERATIVE DIAGNOSIS: Open wound, buttock. POSTOPERATIVE DIAGNOSIS: Open wound, buttock. PROCEDURE PERFORMED: 1. Debridement of buttock wound in preparation for skin grafting (60 sq cm), (59433). 2. Split thickness skin graft of buttock (60 sq cm), (18143). 3. Application of wound VAC (60 sq cm), (86709). DESCRIPTION OF PROCEDURE: Following the induction of adequate anesthesia, the patient was prepped and draped in the usual sterile fashion in the right lateral decubital position. The wound was sharply debrided back to punctate bleeding. It was then copiously irrigated and inspected for meticulous hemostasis. The defect was approximately 5 x 12 cm. The defect cannot be closed primarily, so skin graft reconstruction was elected. A 04/1000 of an inch skin graft was harvested from the left lateral thigh and meshed it 1.5 to 1. It was then secured to the wound using rey. To secure the graft in this tenuous location as well as enhance survival, a wound VAC was placed with assistance of Wound Care in the usual fashion. The patient tolerated the procedure well. Job ID: [id number]
--- NOTE | 2018-07-13 05:45 | PQF ---
[facility] POST DISCHARGE CLINICAL DOCUMENTATION IMPROVEMENT CLARIFICATION FORM l Todays Date: 07/13/18 l Patients Name EVELINA STALLWORTH l l Admit Date 07/09/18 l Disch Date 07/09/18 Osteologist Name Anita Gamez Email: [email or web address] Cell: [phone] To be completed by Osteologist: Present Clinical Indicators - Signs / Symptoms Results and Location in Medical Record [ ] Documentation of: [ ] [ ] Documentation of: [ ] [ ] Documentation of: [ ] [ ] Documentation of: [ ] [ ] Risks [ ] [ ] [ ] Treatment [ ] Debridement of open wound of buttocks Query for depth of debridement [ ] granulation tissue and skin [ ] To be completed by Physician: DR. Alfonzo Beverly The documentation in this patients record requires clarification to ensure coding compliance and accuracy. Check the appropriate box and include in your discharge summary. [ ] [ ] [ ] [ ] Please check this box if this does not apply to this patient [ ] Unable to determine [ ] Other diagnosis: Review the following information and exercise your independent professional judgment in responding to the clarification. Based upon the clinical findings, risk factors, and treatment, please clarify if you are treating one of the above probable or suspected diagnoses. Physician Signature: Alfonzo Beverly Date____2/28/19__ Time [facility]
== END 2018-07-09 17:53 | disposition home or self-care (01) ==
LOC: SDC 11:09
PROVIDERS: ATTEND Specialist
PROC: 0HR8X74 Replacement of Buttock Skin with Autologous Tissue Substitute, Partial Thickness, External Approach (ICD-10-PCS; principal; 2018-07-09)
DX: S31.819D Unspecified open wound of right buttock, subsequent encounter (principal); E11.9 Type 2 diabetes mellitus without complications; Z79.899 Other long term (current) drug therapy; Z88.2 Allergy status to sulfonamides
CPT/HCPCS: 80048; 85025; J0171; J0670; J1644; J2001; J2250; J2704; J3010; J3490

== ENCOUNTER 2018-07-13 11:03 | Outpatient (CLI) | payer OTHER | END 2018-07-13 11:04 | disposition home or self-care (01) | LOC: WCC 11:03 | PROVIDERS: ATTEND Family Medicine | DX: T81.89XD Other complications of procedures, not elsewhere classified, subsequent encounter (principal) | CPT/HCPCS: 36416; 97606; A4218 ==

== ENCOUNTER 2018-07-22 15:15 | Outpatient (CLI) | payer OTHER ==
--- NOTE | 2018-07-22 15:41 | PRG ---
DATE OF SERVICE: 07/22/2018 HISTORY: Ms. Cortney Baez is a very pleasant 37-year-old, who presents to the Wound Center for evaluation of a wound subsequent to surgery for a perirectal abscess on 04/26/2018. On 04/27/2018, the patient underwent debridement in addition to laparoscopic diverting colostomy. Ms. Baez subsequently underwent intraoperative debridement on 5 occasions. Most recently, the patient underwent graft placement by Plastic Surgery on 07/09/2018. A wound VAC was placed intraoperatively at the time of surgery. Since 07/13/2018, the patient has been receiving dressing changes of Vaseline gauze and Telfa as per Dr. Beverly. PHYSICAL EXAMINATION: VITAL SIGNS: Temperature 98.3, pulse 109, respirations 17, blood pressure 131/76. Accu-Chek 374. EXTREMITIES: A wound subsequent to surgery for perirectal abscess with multiple subsequent debridements followed by skin graft placement is present. The dimensions of the wound are approximately 9.0 x 2.4 cm. Granulation tissue is present within the wound margins. No purulent drainage is associated with the wound. No erythema of the skin surrounding the wound is present. No maceration of the skin of the periwound is noted. ASSESSMENT AND PLAN: 1. Wound subsequent to surgery for perirectal abscess on 04/26/2018, followed by multiple subsequent debridements. Most recently, the patient underwent split-thickness skin graft placement on 07/09/[address] Beverly. As per Dr. Beverly, dressing changes of Vaseline gauze and Telfa will be continued after cleansing with soapy water. The patient will be seen by Dr. Beverly in 1 week. I will see Ms. Baez again as needed after evaluation by Plastic Surgery. 2. Human immunodeficiency virus/acquired immunodeficiency syndrome. 3. History of anemia. 4. Asthma. 5. Ulcerative esophagitis. 6. Diabetes mellitus. Job ID: [id number]
[2018-07-22] MEDS ORDERED: Sodium Chloride 0.9% 15 ML NEB ONE (19:44)
== END 2018-07-22 15:16 | disposition home or self-care (01) ==
LOC: WCC 15:15
PROVIDERS: ATTEND Family Medicine
DX: T81.89XD Other complications of procedures, not elsewhere classified, subsequent encounter (principal); B20 Human immunodeficiency virus [HIV] disease; E11.9 Type 2 diabetes mellitus without complications; J45.909 Unspecified asthma, uncomplicated; K22.10 Ulcer of esophagus without bleeding; Z86.2 Personal history of diseases of the blood and blood-forming organs and certain disorders involving the immune mechanism
CPT/HCPCS: 97602; A4218

== ENCOUNTER 2018-08-02 10:05 | Outpatient (CLI) | payer OTHER ==
[2018-08-02] MEDS ORDERED: Sodium Chloride 0.9% 15 ML NEB ONE (18:00)
== END 2018-08-02 10:06 | disposition home or self-care (01) ==
LOC: WCC 10:05
PROVIDERS: ATTEND Family Medicine
DX: T81.89XD Other complications of procedures, not elsewhere classified, subsequent encounter (principal)
CPT/HCPCS: 36416; 97602; A4218

== ENCOUNTER 2018-10-20 05:12 | Outpatient (CLI) | payer MEDICARE, MEDICAID ==
[2018-10-20 17:28] LABS: #Basophils 0.1 thou/uL (0.0-0.2); #Eosinphils 0.1 thou/uL (0.0-0.7); #Lymphocytes 1.6 thou/uL (1.20-3.40); #Monocytes 0.5 thou/uL (0.11-0.59); #Neutrophils 5.9 thou/uL (1.40-6.50); %Basophils 0.8 % (0.0-1.0); %Lymphocytes 19.6 % (21.0-51.0); %Monocytes 5.8 % (0.0-10.0); %Neutrophils 72.8 % (42.0-75.0); Hemoglobin 10.8 g/dL (12.0-16.0); Mean Corpuscular HGB CONC 31.5 g/dL (32.0-36.0); Mean Corpuscular Hemoglobin 26.4 pg (27.0-31.0); Mean Platelet Volume 7.1 fL (7.4-10.4); Platelet Count 451 thou/uL (130-400); RBC Distribution Width 13.6 % (11.5-14.5); Red Blood Cell (RBC) Count 4.09 mill/uL (4.20-5.40); White Blood Cell (WBC) Count 8.1 thou/uL (4.8-10.8)
[2018-10-20 17:32] LABS: Hemoglobin A1c 12.3 % (4.0-6.0)
[2018-10-20 17:33] LABS: BHCG - Serum Negative (NEGATIVE); Pregs Control Background? CLEAR/WHITE (CLR/WHITE); Pregs Control Bar Appear? YES (CONTROL BAR)
[2018-10-20 17:43] LABS: Anion Gap 13 mmol/L (10-20); BUN (Urea Nitrogen) 25 mg/dL (7.0-18.7); Calc. Creatinine Clearance 0 mL/min (70-130); Calcium 9.7 mg/dL (7.8-10.44); Carbon Dioxide 26 mmol/L (22-29); Chloride 101 mmol/L (98-107); Estimated GFR-MDRD 63; Glucose 211 mg/dL (70-105); Potassium 4.4 mmol/L (3.5-5.1); Sodium 136 mmol/L (136-145)
--- NOTE | 2018-10-21 20:03 | EKG ---
Test Reason : Blood Pressure : / mmHG Vent. Rate : 092 BPM Atrial Rate : 092 BPM P-R Int : 138 ms QRS Dur : 080 ms QT Int : 380 ms P-R-T Axes : 056 100 065 degrees QTc Int : 469 ms Normal sinus rhythm Rightward axis Borderline ECG When compared with ECG of 21-FEB-2015 05:21, No significant change was found Confirmed by HEVER JAIN, SDelicia ([id number]) on 10/21/2018 8:03:26 PM Referred By: JULIANNA Confirmed By:DR. Melani KATHLEEN MD
== END 2018-10-20 05:13 | disposition home or self-care (01) ==
LOC: LABBT 05:12
PROVIDERS: ATTEND Specialist
DX: Z01.818 Encounter for other preprocedural examination (principal); Z93.3 Colostomy status
CPT/HCPCS: 80048; 83036; 84703; 85025; 93005; 93010

== ENCOUNTER 2018-10-25 07:06 | Inpatient (IN) | payer MEDICARE, MEDICAID ==
--- NOTE | 2018-10-20 11:26 | HP ---
HISTORY OF PRESENT ILLNESS: Cortney Baez is a 37-year-old black female, HIV positive, presenting with necrotizing fasciitis of perianal buttocks area requiring extensive debridement, having a Amaro catheter for IV antibiotics, followed by Dr. Ocampo. The patient was noncompliant with her HIV treatment prior, but now has appointment to see Dr. Ocampo for followup. The patient underwent extensive debridement of perianal buttocks on 05/09/2018. She subsequently underwent wound care wound VAC after diverting colostomy laparoscopic. She saw Dr. Alfonzo Beverly who performed skin grafting, which has worked very well. She presents to see me now for laparoscopic colostomy reversal. She understands risks and benefits, and consents. She will undergo a bowel prep. We will plan this in the near future under general anesthesia, CALISTA block. MEDICATIONS: Prezcobix 800/150 daily, Descovy 200/25 daily, daily and Levemir as needed. PAST SURGICAL HISTORY: Debridement of buttocks wound, necrotizing fasciitis, laparoscopic diverting colostomy and subsequent skin grafting. PAST MEDICAL HISTORY: Diabetes mellitus, HIV positive. She is taking Levemir insulin. ALLERGIES: SULFA. SOCIAL HISTORY: Tobacco, none. Alcohol, none. PHYSICAL EXAMINATION: VITAL SIGNS: 119 pounds, 5 feet 1 inch, blood pressure 142/86, pulse 98, temperature 97.9 degrees. LUNGS: Clear to auscultation. CARDIAC: Regular rate and rhythm without murmur or gallop. ABDOMEN: Soft and nontender. Colostomy in place and healthy. Rectal exam normal with voluntary sphincter contraction. EXTREMITIES: Unremarkable. ASSESSMENT: Undesired colostomy. PLAN: Laparoscopic reversal. She understands risks, benefits, and consents. She will undergo a bowel prep the day prior. Plan is under general anesthesia and CALISTA block. Job ID: [id number]
[2018-10-20 16:24] VITALS: BMI 22.8
[2018-10-25] MEDS ORDERED: Ketorolac Tromethamine 30 MG/ML VIAL ONE (10:08)
[2018-10-25] MEDS ORDERED: Meropenem 2 GM in Sodium Chloride 0.9% 100 ML IVPB SCH (10:30)
[2018-10-25] MEDS ORDERED: Midazolam HCl 2 mg/2 ml Vial ONE ×2 (10:33→12:39)
[2018-10-25] MEDS ORDERED: Fentanyl 100 MCG/2 ML VIAL ONE ×5 (10:33→16:27)
[2018-10-25] MEDS ORDERED: Insulin Regular 300 UNITS/3 ML VIAL ONE (10:38)
[2018-10-25] MEDS ORDERED: Bupivacaine/Epinephrine 0.25% 30 ML VIAL ONE (12:50)
[2018-10-25] MEDS ORDERED: PROVENTIL INHALER 6.7 G (200 INHALATIONS) INH PRN (15:29)
[2018-10-25] MEDS ORDERED: Promethazine HCl 25 MG/ML VIAL IM PRN (15:35)
[2018-10-25] MEDS ORDERED: Promethazine HCl 25 MG/ML VIAL SLOW IVP PRN (15:35)
[2018-10-25] MEDS ORDERED: Ondansetron HCl/PF 4 MG/2 ML Vial IVP PRN (15:35)
--- NOTE | 2018-10-25 15:53 | OP ---
DATE OF PROCEDURE: 10/25/2018 PREOPERATIVE DIAGNOSES: Undesired colostomy, status post necrotizing fasciitis requiring diversion. POSTOPERATIVE DIAGNOSES: Undesired colostomy, status post necrotizing fasciitis requiring diversion. PROCEDURE PERFORMED: Laparoscopic colostomy reversal with a 29 mm EEA stapler. ANESTHESIA: General, TAP block. ESTIMATED BLOOD LOSS: Less than 80 mL. DESCRIPTION OF PROCEDURE: The patient was taken to the operating room, where under general anesthesia and TAP block, in the dorsal lithotomy position, a Abss catheter was placed. Perineum and abdomen were prepared with Betadine and ChloraPrep respectively, and draped in routine fashion. Colostomy had been closed with continuous suture of 2-0 locking silk prior. Infraumbilical incision was made. Pneumoperitoneum to 15 mmHg was obtained with a Veress needle, replaced with a 5 port and laparoscope inserted. Right lower quadrant incision was made through an old port site and a 12 mm port was placed with a combination of stapler. A 5 mm port was placed through an incision in the left upper quadrant and right upper quadrant. Another incision was made in mid lateral right abdomen and a 5 port placed. Attention was turned to the pelvis. The rectosigmoid stump was mobilized, mobilizing the lower sigmoid down to the rectum. Mesentery was divided with the LigaSure at the rectosigmoid. Colon was divided with a DIEGO blue load stapler. Good hemostasis was noted. The omentum was taken down using the LigaSure, freeing it from the distal colon. The colostomy was then taken down circumferentially to the skin, dissected free, brought out through this defect. There was noted to be colostomy prolapse that was reduced prior to closure of the skin at the beginning the procedure. Then, a small amount of colon resected with the cautery, opening the lumen, placed in 29 mm EEA anvil into the distal colon, closing it with continuous suture of 2-0 Prolene pursestring. Once this was completed, our gloves and gowns were changed and colon dropped back down into the abdominal cavity and the remnant of rectosigmoid removed, submitted to Pathology. A wound protector inserted, twisted, and closed off this defect as pneumoperitoneum was re-established, laparoscopy undertaken, and the anus and rectum and dilated with serial dilators and the sizers. Under laparoscopic visualization, the stapling device inserted into the anus and directed up to the rectal stump where an anvil post was then advanced out of the staple line under laparoscopic visualization and connected to the more proximal anvil in the descending colon. Once these were mated, anastomosis was approximated within the torque fire range and stapler fired, loosened and released, removing complete donuts. Donuts were not submitted. Anastomosis was checked under water, insufflation of the rectum with a 30 mL Bass balloon and there was no leak. The sponge needle counts were correct, and good hemostasis noted. The pneumoperitoneum was reduced. All instruments were removed, and the posterior fascia was closed with continuous suture of #1 PDS. Anterior fascia was closed with continuous suture of #1 PDS. Skin and subcutaneous tissues were irrigated. The old colostomy site and subcutaneous tissue were approximated with 3-0 Monocryl, skin with subdermal 4-0 Monocryl, and [place] glue applied. Laparoscopic incisions were closed by approximating the skin with interrupted subdermal 4-0 Monocryl and [place] glue applied. Job ID: [id number]
[2018-10-25] MEDS ORDERED: Labetalol HCl 100 MG/20 ML VIAL ONE (16:09)
[2018-10-25] MEDS ORDERED: Labetalol HCl 100 MG/20 ML VIAL SLOW IVP SCH (16:30)
[2018-10-25] MEDS ORDERED: HYDROmorphone 2 MG/ML VIAL ONE (16:43)
[2018-10-25] MEDS ORDERED: Ondansetron PF 4 MG/2 ML Vial IVP PRN (17:41)
[2018-10-25] MEDS ORDERED: Morphine 4 MG/ML VIAL SLOW IVP PRN (17:41)
[2018-10-25] MEDS ORDERED: Insulin Regular 300 UNITS/3 ML VIAL SC PRN (17:41)
[2018-10-25] MEDS ORDERED: Dextrose 5% in Water 1,000 ML IV PRN (17:41)
[2018-10-25] MEDS ORDERED: hydrALAZINE 20 MG/ML VIAL SLOW IVP PRN (17:41)
[2018-10-25] MEDS ORDERED: traMADol HCl 50 MG TAB PO PRN (17:41)
[2018-10-25] MEDS ORDERED: Dextrose 50% Abboject 50 ML SYRINGE SLOW IVP PRN (17:41)
[2018-10-25] MEDS ORDERED: Morphine 2 MG/ML SYRINGE SLOW IVP PRN (17:56)
[2018-10-25] MEDS: Acetaminophen 1,000 MG in Premix Bag 1 BAG IVPB SCH ×2 (18:20→23:54)
[2018-10-25] MEDS: Ketorolac Tromethamine 30 MG/ML VIAL IVP SCH ×2 (18:21→23:52)
[2018-10-25] MEDS: Lactated Ringer's 1,000 ML IV SCH (18:22)
[2018-10-25] MEDS: Famotidine 20 MG TAB PO SCH (20:27)
[2018-10-25] MEDS: Gabapentin 300 MG CAP PO SCH (20:27)
[2018-10-25] MEDS: Famotidine/PF 20 mg/2ml Vial SLOW IVP SCH (20:27)
[2018-10-25] MEDS ORDERED: Enoxaparin Sodium 40 MG/0.4 ML SYRINGE SC SCH (21:00)
[2018-10-25] MEDS ORDERED: PREZCOBIX PO SCH (21:00)
[2018-10-26] MEDS: Lactated Ringer's 1,000 ML IV SCH ×2 (02:45→13:46)
[2018-10-26 05:33] LABS: #Lymphocytes 0.9 thou/uL (1.20-3.40); #Monocytes 0.9 thou/uL (0.11-0.59); #Neutrophils 13.9 thou/uL (1.40-6.50); %Basophils 0.2 % (0.0-1.0); %Eosinophils 0.1 % (0.0-10.0); %Lymphocytes 5.8 % (21.0-51.0); %Monocytes 5.5 % (0.0-10.0); %Neutrophils 88.4 % (42.0-75.0); Hemoglobin 9.9 g/dL (12.0-16.0); Mean Corpuscular HGB CONC 31.6 g/dL (32.0-36.0); Mean Corpuscular Hemoglobin 26.9 pg (27.0-31.0); Mean Corpuscular Volume 85.2 fL (78.0-98.0); Mean Platelet Volume 7.2 fL (7.4-10.4); Platelet Count 336 thou/uL (130-400); Red Blood Cell (RBC) Count 3.67 mill/uL (4.20-5.40); White Blood Cell (WBC) Count 15.7 thou/uL (4.8-10.8)
[2018-10-26] MEDS: Acetaminophen 1,000 MG in Premix Bag 1 BAG IVPB SCH ×2 (05:48→11:45)
[2018-10-26] MEDS: Ketorolac Tromethamine 30 MG/ML VIAL IVP SCH ×3 (05:49→16:44)
[2018-10-26 05:53] LABS: Anion Gap 16 mmol/L (10-20); BUN (Urea Nitrogen) 24 mg/dL (7.0-18.7); Calc. Creatinine Clearance 64 mL/min (70-130); Carbon Dioxide 15 mmol/L (22-29); Chloride 103 mmol/L (98-107); Estimated GFR-MDRD 72; Glucose 279 mg/dL (70-105); Potassium 4.3 mmol/L (3.5-5.1); Sodium 130 mmol/L (136-145)
[2018-10-26] MEDS: HumaLOG 300 UNITS/3 ML VIAL SC PRN ×2 (06:55→11:47)
[2018-10-26] MEDS: Insulin Regular 300 UNITS/3 ML VIAL SC SCH ×3 (08:32→16:44)
[2018-10-26] MEDS: Famotidine 20 MG TAB PO SCH (08:32)
[2018-10-26] MEDS: Gabapentin 300 MG CAP PO SCH ×2 (08:32→15:28)
[2018-10-26] MEDS: Famotidine/PF 20 mg/2ml Vial SLOW IVP SCH (08:32)
[2018-10-26] MEDS ORDERED: BECLOMETHASONE DIPROPIONATE INH SCH (09:00)
[2018-10-26] MEDS: traMADol HCl 50 MG TAB PO PRN ×2 (09:33→15:28)
[2018-10-26] MEDS ORDERED: Ibuprofen 600 MG TAB PO PRN (15:26)
[2018-10-26] MEDS ORDERED: Acetaminophen 500 MG TAB PO PRN (15:26)
[2018-10-26 15:42] VITALS: BP 168/94; TEMP 98.3
[2018-10-26] MEDS ORDERED: PREZCOBIX PO SCH (21:00)
--- NOTE | 2018-10-27 04:15 | DIS ---
DATE OF ADMISSION: 10/25/2018 DATE OF DISCHARGE: 10/26/2018 DISCHARGE DIAGNOSES: Undesired colostomy, prolapsed colostomy form for diversion after necrotizing fasciitis, buttock perineum, now ready for reversal after skin grafting by Dr. Beverly, healed wound and good sphincter tone. PROCEDURES: Laparoscopic colostomy reversal. HISTORY: A 37-year-old black female, HIV positive, poor compliance, initially presenting with the above necrotizing fasciitis, requiring serial debridements and diversion, laparoscopic colostomy, has subsequently healed her wound, undergone skin grafting to close the wound and is now seeing Dr. Ocampo on regular basis, compliant on her HIV medications, hope to be not detected soon. She presents for colostomy reversal. She had colostomy prolapse on presentation. The patient underwent laparoscopic colostomy reversal after a bowel prep the day prior and postoperatively, convalesced tolerated diet, have bowel movements and has been discharged home with followup in my office in 2 to 3 weeks. May then shower as needed. Expect a bloody bowel movement occasionally. She had a bloody bowel movement the evening of surgery and normal bowel movement, very little blood the day of surgery. She is tolerating a regular diet and pain controlled on oral medications. She will resume her home medications as well as taking Tylenol, ibuprofen, and Ultram p.r.n. pain. She was prescribed Ultram 50 mg 1 to 2 p.o. q.i.d. p.r.n. pain, #25, two refills. Job ID: [id number]
== END 2018-10-26 17:00 | disposition home or self-care (01) | DRG 331 ==
LOC: SURG A 07:06 → EDSTATUS 09:24 → SURG B 17:44
PROVIDERS: ADMIT Specialist; ATTEND Specialist
PROC: 0DBN4ZZ Excision of Sigmoid Colon, Percutaneous Endoscopic Approach (ICD-10-PCS; principal; 2018-10-25)
DX: Z43.3 Encounter for attention to colostomy (principal); E11.9 Type 2 diabetes mellitus without complications; Z21 Asymptomatic human immunodeficiency virus [HIV] infection status; Z88.1 Allergy status to other antibiotic agents
CPT/HCPCS: 36415; 36416; 80048; 85025; 88304; J0131; J0360; J1170; J1650; J1815; J1885; J2185; J2250; J2270; J3010; J3490

== ENCOUNTER 2020-07-28 14:33 | Emergency (ER) | payer OTHER | END 2020-07-28 16:50 | disposition home or self-care (01) | LOC: ERS 14:33 | DX: E10.622 Type 1 diabetes mellitus with other skin ulcer (principal); L97.319 Non-pressure chronic ulcer of right ankle with unspecified severity; B20 Human immunodeficiency virus [HIV] disease; F17.210 Nicotine dependence, cigarettes, uncomplicated; Z79.4 Long term (current) use of insulin; Z79.899 Other long term (current) drug therapy ==

== ENCOUNTER 2024-02-22 12:21 | Inpatient (IN) | payer MEDICARE, OTHER ==
[2024-02-22 13:45] LABS: #Basophils 0.03 10x3/uL (0.0-0.2); #Eosinophils Less than 0.03 10x3/uL (0.0-0.7); %Basophils 0.4 % (0.0-1.0); %Eosinophils 0.1 % (0.0-10.0); %Lymphocytes 10.9 % (21.0-51.0); %Monocytes 1.9 % (0.0-10.0); Hematocrit 35.8 % (36.0-47.0); Hemoglobin 10.9 g/dL (12.0-16.0); Mean Corpuscular HGB CONC 30.4 g/dL (32.0-36.0); Mean Corpuscular Hemoglobin 26.5 pg (27.0-31.0); Mean Corpuscular Volume 86.9 fL (78.0-98.0); Mean Platelet Volume 9.3 fL (7.4-10.4); Platelet Count 288 10x3/uL (130-400); RBC Distribution Width 15.2 % (11.5-14.5); Red Blood Cell (RBC) Count 4.12 mill/uL (4.20-5.40)
[2024-02-22 13:58] LABS: BHCG - Serum Negative (NEGATIVE); Pregs Control Background? CLEAR/WHITE (CLR/WHITE); Pregs Control Bar Appear? YES (CONTROL BAR)
[2024-02-22 14:04] LABS: ALT (SGPT) 31 U/L (8-55); AST (SGOT) 34 U/L (5-34); Albumin 3.1 g/dL (3.5-5.0); Alkaline Phosphatase 83 U/L (40-110); Anion Gap 15 mmol/L (10-20); BUN (Urea Nitrogen) 38 mg/dL (7.0-18.7); Bilirubin, Total 0.2 mg/dL (0.2-1.2); Calc. Creatinine Clearance 0 mL/min (70-130); Calcium 9.4 mg/dL (7.8-10.44); Carbon Dioxide 17 mmol/L (22-29); Chloride 110 mmol/L (98-107); Estimated GFR 31; Globulin 5.3 g/dL (2.4-3.5); Glucose 173 mg/dL (70-105); Potassium 4.9 mmol/L (3.5-5.1); Protein, Total 8.4 g/dL (6.0-8.3); Sodium 137 mmol/L (136-145)
[2024-02-22 14:09] LABS: Troponin I 0.011 ng/mL (< 0.028)
[2024-02-22] MEDS ORDERED: Glucagon 1 MG/ML KIT IM PRN (16:55)
[2024-02-22] MEDS ORDERED: Acetaminophen 650 MG Suppository PR PRN (16:55)
[2024-02-22] MEDS ORDERED: Dextrose 50% Abboject 50 ML SYRINGE SLOW IVP PRN (16:55)
[2024-02-22] MEDS ORDERED: Ondansetron PF 4 MG/2 ML Vial IVP PRN (16:55)
[2024-02-22] MEDS ORDERED: Nicotine 14 MG PATCH TD PRN (16:55)
[2024-02-22] MEDS ORDERED: Dextrose 5% in Water 1,000 ML IV PRN (16:55)
[2024-02-22] MEDS ORDERED: Ondansetron ODT 4 MG TAB PO PRN (16:55)
[2024-02-22] MEDS ORDERED: Albuterol 2.5 MG (3 mL) NEB NEB PRN (17:05)
[2024-02-22 17:51] VITALS: BMI 22.6
[2024-02-22] MEDS: Lactated Ringer's 1,000 ML IV SCH (18:02)
[2024-02-22] MEDS: Acetaminophen 325 MG TAB PO SCH (18:02)
[2024-02-22] MEDS: Gabapentin 300 MG CAP PO SCH (20:23)
[2024-02-22] MEDS: [UNRECOGNIZED DRUG - OTHER] PO SCH (21:56)
[2024-02-23] MEDS: Insulin Regular, Human 100 UNIT/ML 10 ML VIAL SC SCH (01:33)
[2024-02-23] MEDS: Insulin Lispro 100 UNIT/ML 10 ML VIAL SC PRN ×2 (05:56→21:05)
[2024-02-23 06:11] LABS: #Basophils 0.03 10x3/uL (0.0-0.2); %Basophils 0.4 % (0.0-1.0); %Eosinophils 0.8 % (0.0-10.0); %Lymphocytes 23.6 % (21.0-51.0); %Monocytes 8.6 % (0.0-10.0); %Neutrophils 66.2 % (42.0-75.0); Hematocrit 29.5 % (36.0-47.0); Hemoglobin 9.3 g/dL (12.0-16.0); Mean Corpuscular HGB CONC 31.5 g/dL (32.0-36.0); Mean Corpuscular Hemoglobin 26.3 pg (27.0-31.0); Mean Corpuscular Volume 83.3 fL (78.0-98.0); Mean Platelet Volume 9.4 fL (7.4-10.4); Platelet Count 268 10x3/uL (130-400); RBC Distribution Width 14.8 % (11.5-14.5); Red Blood Cell (RBC) Count 3.54 mill/uL (4.20-5.40)
[2024-02-23] MEDS: NIFEdipine XL 60 MG ER.TAB PO SCH (06:59)
[2024-02-23 07:30] LABS: Anion Gap 11 mmol/L (10-20); BUN (Urea Nitrogen) 39 mg/dL (7.0-18.7); Calc. Creatinine Clearance 27 mL/min (70-130); Calcium 8.9 mg/dL (7.8-10.44); Carbon Dioxide 21 mmol/L (22-29); Chloride 110 mmol/L (98-107); Estimated GFR 27; Glucose 234 mg/dL (70-105); Potassium 4.8 mmol/L (3.5-5.1); Sodium 137 mmol/L (136-145)
[2024-02-23] MEDS: FLUoxetine HCl 10 MG CAP PO SCH (08:04)
[2024-02-23] MEDS: [UNRECOGNIZED DRUG - OTHER] PO SCH (20:03)
[2024-02-23] MEDS: Rosuvastatin 10 MG TAB PO SCH (20:04)
[2024-02-24 05:58] LABS: #Basophils 0.04 10x3/uL (0.0-0.2); %Basophils 0.5 % (0.0-1.0); %Eosinophils 1.5 % (0.0-10.0); %Lymphocytes 28.4 % (21.0-51.0); %Monocytes 6.8 % (0.0-10.0); %Neutrophils 62.4 % (42.0-75.0); Hematocrit 30.2 % (36.0-47.0); Hemoglobin 9.4 g/dL (12.0-16.0); Mean Corpuscular HGB CONC 31.1 g/dL (32.0-36.0); Mean Corpuscular Hemoglobin 26.4 pg (27.0-31.0); Mean Corpuscular Volume 84.8 fL (78.0-98.0); Mean Platelet Volume 9.3 fL (7.4-10.4); Platelet Count 275 10x3/uL (130-400); RBC Distribution Width 14.6 % (11.5-14.5); Red Blood Cell (RBC) Count 3.56 mill/uL (4.20-5.40)
[2024-02-24 06:08] LABS: ALT (SGPT) 32 U/L (8-55); AST (SGOT) 34 U/L (5-34); Albumin 2.7 g/dL (3.5-5.0); Alkaline Phosphatase 76 U/L (40-110); Anion Gap 10 mmol/L (10-20); BUN (Urea Nitrogen) 36 mg/dL (7.0-18.7); Bilirubin, Total 0.2 mg/dL (0.2-1.2); Calc. Creatinine Clearance 30 mL/min (70-130); Calcium 9.3 mg/dL (7.8-10.44); Carbon Dioxide 23 mmol/L (22-29); Chloride 109 mmol/L (98-107); Estimated GFR 30; Globulin 4.2 g/dL (2.4-3.5); Glucose 230 mg/dL (70-105); Potassium 5.1 mmol/L (3.5-5.1); Protein, Total 6.9 g/dL (6.0-8.3); Sodium 137 mmol/L (136-145)
[2024-02-24] MEDS: FLU (Fluarix Triv) TS24-25(6MOS UP)/PF 45 MCG/0.5 ML Syringe IM ONE (07:57)
[2024-02-24 09:00] VITALS: BP 112/72; TEMP 98
== END 2024-02-24 15:47 | disposition home or self-care (01) | DRG 638 ==
LOC: ERS 12:21 → T4-A 15:40 → OBSVTOIN 02-24 11:14
PROVIDERS: ADMIT Internal Medicine; ATTEND Internal Medicine
DX: E10.649 Type 1 diabetes mellitus with hypoglycemia without coma (principal); E87.20 Acidosis, unspecified; N17.9 Acute kidney failure, unspecified; Z21 Asymptomatic human immunodeficiency virus [HIV] infection status; J45.909 Unspecified asthma, uncomplicated; F41.9 Anxiety disorder, unspecified; N18.30 Chronic kidney disease, stage 3 unspecified; I12.9 Hypertensive chronic kidney disease with stage 1 through stage 4 chronic kidney disease, or unspecified chronic kidney disease; D63.1 Anemia in chronic kidney disease; F17.210 Nicotine dependence, cigarettes, uncomplicated; Z88.8 Allergy status to other drugs, medicaments and biological substances; Z79.899 Other long term (current) drug therapy; Z90.49 Acquired absence of other specified parts of digestive tract; Z98.890 Other specified postprocedural states; Z90.710 Acquired absence of both cervix and uterus
CPT/HCPCS: 36415; 36416; 71045; 80048; 80053; 83880; 84484; 84703; 85025; 93005; 99285; G0378; J1815; J7120

== ENCOUNTER 2025-02-23 12:17 | Inpatient (IN) | payer OTHER, MEDICAID ==
[2025-02-23 13:00] LABS: #Basophils 0.03 10x3/uL (0.0-0.2); #Eosinophils 0.04 10x3/uL (0.0-0.7); #Monocytes 0.34 10x3/uL (0.11-0.59); #Neutrophils 5.56 10x3/uL (1.40-6.50); %Basophils 0.4 % (0.0-1.0); %Eosinophils 0.5 % (0.0-10.0); %Lymphocytes 22.4 % (21.0-51.0); %Monocytes 4.4 % (0.0-10.0); %Neutrophils 71.7 % (42.0-75.0); Hematocrit 28.3 % (36.0-47.0); Hemoglobin 9.3 g/dL (12.0-16.0); Mean Corpuscular Hemoglobin 27.1 pg (27.0-31.0); Mean Corpuscular Volume 82.5 fL (78.0-98.0); Platelet Count 350 10x3/uL (130-400); Red Blood Cell (RBC) Count 3.43 mill/uL (4.20-5.40); White Blood Cell (WBC) Count 7.76 10x3/uL (4.8-10.8)
[2025-02-23 13:17] LABS: ALT (SGPT) 22 U/L (Less than 34); AST (SGOT) 30 U/L (11-34); Albumin 2.8 g/dL (3.1-4.5); Alkaline Phosphatase 78 U/L (40-110); Anion Gap 13 mmol/L (10-20); BUN (Urea Nitrogen) 48 mg/dL (7.0-18.7); Bilirubin, Total 0.1 mg/dL (0.3-1.2); Calc. Creatinine Clearance 0 mL/min (70-130); Calcium 9.0 mg/dL (7.8-10.44); Carbon Dioxide 22 mmol/L (22-29); Chloride 101 mmol/L (98-107); Globulin 4.4 g/dL (2.4-3.5); Glucose 273 mg/dL (70-105); Lipase 25 U/L (8-78); Potassium 4.3 mmol/L (3.5-5.1); Sodium 132 mmol/L (136-145)
[2025-02-23 13:32] LABS: BHCG - Serum POSITIVE (NEGATIVE); Pregs Control Background? CLEAR/WHITE (CLR/WHITE); Pregs Control Bar Appear? YES (CONTROL BAR)
[2025-02-23 14:07] LABS: Magnesium 2.4 mg/dL (1.6-2.6)
[2025-02-23 14:10] LABS: INR-International Normal Ratio 0.9; PTT 34.0 sec (22.9-36.1); Prothrombin Time 12.1 sec (12.0-14.7)
[2025-02-23 14:35] LABS: Actual Bicarbonate (HCO3v) 23.7 mEq/L (22-28); Analyzer IN Cardio ER; Base Excess -1.8 mEq/L (-2.0 to +3.0); Calcium, Ionized (venous) 1.14 mmol/L (1.16-1.32); Chloride (VBG) 102 mmol/L (98-106); Hematocrit-VBG 33 % (36.0-47.0); Hemoglobin (Hb) 11.2 g/dL (11.7-16.0); Potassium (VBG) 4.48 mmol/L (3.70-5.30); Sodium 135 mmol/L (133-146)
[2025-02-23] MEDS ORDERED: Aspirin Chewable 81 MG TAB ONE (14:49)
[2025-02-23 15:02] LABS: Bacteria/HPF None Seen HPF (None Seen); Glucose, Urine (Dipstick) >=1000 mg/dL (Negative); Leukocyte Negative Leu/uL (Negative); Protein, Urine (Dipstick) 300 mg/dL (Neg-Trace); RBC/HPF 0-3 HPF (0-3); Specific Gravity, Urine 1.011 (1.002-1.036)
[2025-02-23] MEDS ORDERED: Nitroglycerin 2% Ointment 1 INCH/1 GM Packet ONE (15:27)
[2025-02-23] MEDS ORDERED: Melatonin 3 MG TAB PO PRN (15:29)
[2025-02-23] MEDS ORDERED: Nitroglycerin 0.4 MG TAB (25 Tab Bottle) SL PRN (15:29)
[2025-02-23] MEDS ORDERED: Heparin 5,000 UNITS/ML VIAL ONE (16:01)
[2025-02-23 18:46] VITALS: BMI 18.9
[2025-02-23 19:30] LABS: Hematocrit 30.2 % (36.0-47.0); Hemoglobin 9.5 g/dL (12.0-16.0); Platelet Count 321 10x3/uL (130-400)
[2025-02-23] MEDS: NIFEdipine XL 90 MG ER.TAB PO SCH (20:33)
[2025-02-23] MEDS: hydrALAZINE 20 MG/ML VIAL SLOW IVP SCH (20:34)
[2025-02-23] MEDS ORDERED: Dextrose 50% Abboject 50 ML SYRINGE SLOW IVP PRN (22:32)
[2025-02-23] MEDS ORDERED: Glucagon 1 MG/ML KIT IM PRN (22:32)
[2025-02-24] MEDS: Gabapentin 300 MG CAP PO SCH ×2 (00:35→13:16)
[2025-02-24] MEDS: Nitroglycerin 2% Ointment 1 INCH/1 GM Packet TOP SCH (00:39)
[2025-02-24 05:08] LABS: #Basophils 0.03 10x3/uL (0.0-0.2); #Eosinophils 0.06 10x3/uL (0.0-0.7); #Monocytes 0.48 10x3/uL (0.11-0.59); #Neutrophils 5.29 10x3/uL (1.40-6.50); %Basophils 0.4 % (0.0-1.0); %Eosinophils 0.8 % (0.0-10.0); %Lymphocytes 22.8 % (21.0-51.0); %Monocytes 6.3 % (0.0-10.0); %Neutrophils 69.0 % (42.0-75.0); Hematocrit 28.3 % (36.0-47.0); Hemoglobin 9.1 g/dL (12.0-16.0); Mean Corpuscular Hemoglobin 26.5 pg (27.0-31.0); Mean Corpuscular Volume 82.3 fL (78.0-98.0); Platelet Count 327 10x3/uL (130-400); Red Blood Cell (RBC) Count 3.44 mill/uL (4.20-5.40); White Blood Cell (WBC) Count 7.66 10x3/uL (4.8-10.8)
[2025-02-24 05:27] LABS: Anion Gap 12 mmol/L (10-20); BUN (Urea Nitrogen) 49 mg/dL (7.0-18.7); Calc. Creatinine Clearance 12 mL/min (70-130); Calcium 8.6 mg/dL (7.8-10.44); Carbon Dioxide 23 mmol/L (22-29); Cardiac Risk 3.1 (Less than 4.5); Chloride 100 mmol/L (98-107); Cholesterol 199 mg/dl (< 200 Desired); Glucose 406 mg/dL (70-105); HDL Cholesterol 64 mg/dL (>60 Neg Risk); LDL Cholesterol, Calculated 108 mg/dL; Potassium 4.4 mmol/L (3.5-5.1); Sodium 131 mmol/L (136-145); Triglycerides 134 mg/dL (Less than 150)
[2025-02-24] MEDS ORDERED: Enoxaparin 30 MG (0.3 mL) SYRINGE SC SCH (09:00)
[2025-02-24] MEDS: Aspirin Chewable 81 MG TAB PO SCH (09:22)
[2025-02-24] MEDS: BIKTARVY 50-200-25 MG TABLET PO SCH (09:22)
[2025-02-24] MEDS: Carvedilol 3.125 MG TAB PO SCH (09:22)
[2025-02-24] MEDS: Heparin 10,000 UNITS/ 10 ML VIAL SLOW IVP SCH (09:25)
[2025-02-24] MEDS: NIFEdipine XL 60 MG ER.TAB PO SCH (09:33)
[2025-02-24 10:41] LABS: Protein, Urine Random Quant 320.0 mg/dL (1-14)
[2025-02-24] MEDS: Ergocalciferol 1.25 MG(50,000 UNITS) CAP PO SCH (11:28)
[2025-02-24] MEDS: EPOETIN ALFA-EPBX (ESRD) 10,000 UNITS/ML VIAL SC SCH (11:28)
[2025-02-24] MEDS: Insulin Glargine 30 UNITS/0.3 ML VIAL SC SCH (11:58)
[2025-02-24] MEDS: Acetaminophen 325 MG TAB PO PRN (13:15)
[2025-02-24] MEDS: Rosuvastatin 10 MG TAB PO SCH (21:42)
[2025-02-25 05:39] LABS: #Basophils 0.04 10x3/uL (0.0-0.2); #Eosinophils 0.09 10x3/uL (0.0-0.7); #Monocytes 0.54 10x3/uL (0.11-0.59); #Neutrophils 5.28 10x3/uL (1.40-6.50); %Basophils 0.5 % (0.0-1.0); %Eosinophils 1.1 % (0.0-10.0); %Lymphocytes 24.1 % (21.0-51.0); %Monocytes 6.8 % (0.0-10.0); %Neutrophils 66.5 % (42.0-75.0); Hematocrit 25.2 % (36.0-47.0); Hemoglobin 8.0 g/dL (12.0-16.0); Mean Corpuscular Hemoglobin 26.4 pg (27.0-31.0); Mean Corpuscular Volume 83.2 fL (78.0-98.0); Platelet Count 297 10x3/uL (130-400); Red Blood Cell (RBC) Count 3.03 mill/uL (4.20-5.40); White Blood Cell (WBC) Count 7.94 10x3/uL (4.8-10.8)
[2025-02-25 05:55] LABS: Anion Gap 12 mmol/L (10-20); BUN (Urea Nitrogen) 47 mg/dL (7.0-18.7); Calc. Creatinine Clearance 13 mL/min (70-130); Calcium 8.5 mg/dL (7.8-10.44); Carbon Dioxide 22 mmol/L (22-29); Cardiac Risk 2.4 (Less than 4.5); Chloride 106 mmol/L (98-107); Cholesterol 166 mg/dl (< 200 Desired); Glucose 272 mg/dL (70-105); HDL Cholesterol 69 mg/dL (>60 Neg Risk); LDL Cholesterol, Calculated 89 mg/dL; Potassium 4.7 mmol/L (3.5-5.1); Sodium 135 mmol/L (136-145); Triglycerides 41 mg/dL (Less than 150)
[2025-02-25] MEDS: Insulin Glargine 30 UNITS/0.3 ML VIAL SC SCH ×2 (09:43→10:13)
[2025-02-25 18:55] LABS: Hematocrit 26.2 % (36.0-47.0); Hemoglobin 8.3 g/dL (12.0-16.0); Platelet Count 323 10x3/uL (130-400)
[2025-02-26 08:31] LABS: Anion Gap 17 mmol/L (10-20); BUN (Urea Nitrogen) 45 mg/dL (7.0-18.7); Calc. Creatinine Clearance 12 mL/min (70-130); Calcium 9.3 mg/dL (7.8-10.44); Carbon Dioxide 22 mmol/L (22-29); Chloride 107 mmol/L (98-107); Glucose 173 mg/dL (70-105); Potassium 5.2 mmol/L (3.5-5.1); Sodium 141 mmol/L (136-145)
[2025-02-26] MEDS: Insulin Glargine 30 UNITS/0.3 ML VIAL SC SCH (08:33)
[2025-02-26] MEDS ORDERED: hydrALAZINE 20 MG/ML VIAL SLOW IVP PRN (08:51)
[2025-02-26] MEDS: FLU (Fluarix Triv) 25-26 (6MOS UP)/PF 45 MCG/0.5 ML Syringe IM ONE (11:00)
[2025-02-26] MEDS: Carvedilol 3.125 MG TAB PO SCH (11:00)
[2025-02-26] MEDS: LOKELMA 10 GM PACKET PO SCH (13:30)
[2025-02-26] MEDS: Carvedilol 6.25 MG TAB PO SCH (16:34)
[2025-02-26] MEDS: NIFEdipine XL 60 MG ER.TAB PO SCH (21:57)
[2025-02-27 05:31] LABS: Anion Gap 16 mmol/L (10-20); BUN (Urea Nitrogen) 49 mg/dL (7.0-18.7); Calc. Creatinine Clearance 12 mL/min (70-130); Calcium 8.7 mg/dL (7.8-10.44); Carbon Dioxide 22 mmol/L (22-29); Chloride 105 mmol/L (98-107); Glucose 64 mg/dL (70-105); Potassium 4.8 mmol/L (3.5-5.1); Sodium 138 mmol/L (136-145)
[2025-02-27] MEDS ORDERED: Carvedilol 6.25 MG TAB PO SCH (08:49)
[2025-02-27 11:03] VITALS: BP 170/92; TEMP 98.1
== END 2025-02-27 11:55 | disposition home or self-care (01) | DRG 682 ==
LOC: ERS 12:17 → 2NO 16:23
PROVIDERS: ADMIT Family Medicine; ATTEND Student in an Organized Health Care Education/Training Program
PROC: 3E0234Z Introduction of Serum, Toxoid and Vaccine into Muscle, Percutaneous Approach (ICD-10-PCS; principal; 2025-02-23)
DX: N17.9 Acute kidney failure, unspecified (principal); I21.A1 Myocardial infarction type 2; B20 Human immunodeficiency virus [HIV] disease; E87.1 Hypo-osmolality and hyponatremia; N18.5 Chronic kidney disease, stage 5; E78.5 Hyperlipidemia, unspecified; F41.9 Anxiety disorder, unspecified; K20.90 Esophagitis, unspecified without bleeding; E10.22 Type 1 diabetes mellitus with diabetic chronic kidney disease; I12.9 Hypertensive chronic kidney disease with stage 1 through stage 4 chronic kidney disease, or unspecified chronic kidney disease; F32.A Depression, unspecified; E88.09 Other disorders of plasma-protein metabolism, not elsewhere classified; E55.9 Vitamin D deficiency, unspecified; F10.90 Alcohol use, unspecified, uncomplicated; D63.1 Anemia in chronic kidney disease; F17.210 Nicotine dependence, cigarettes, uncomplicated; Z98.890 Other specified postprocedural states; Z93.3 Colostomy status; Z90.49 Acquired absence of other specified parts of digestive tract; Z89.412 Acquired absence of left great toe; Z90.710 Acquired absence of both cervix and uterus; Z88.8 Allergy status to other drugs, medicaments and biological substances; Z88.2 Allergy status to sulfonamides; Z79.4 Long term (current) use of insulin; Z79.899 Other long term (current) drug therapy; Z90.722 Acquired absence of ovaries, bilateral; Z23 Encounter for immunization
CPT/HCPCS: 36415; 36416; 71045; 76770; 80048; 80053; 80061; 81001; 82043; 82306; 82805; 83036; 83690; 83735; 83880; 83970; 84156; 84443; 84484; 84702; 84703; 85014; 85018; 85025; 85049; 85610; 85730; 90656; 93005; 93010; 93306; 93798; 96374; 96375; 97139; J0360; J1644; J1815; J7030; Q5105

== ENCOUNTER 2025-03-11 13:29 | Inpatient (IN) | payer OTHER ==
[2025-03-11 14:37] LABS: #Basophils 0.03 10x3/uL (0.0-0.2); #Eosinophils 0.05 10x3/uL (0.0-0.7); #Monocytes 0.45 10x3/uL (0.11-0.59); #Neutrophils 6.47 10x3/uL (1.40-6.50); %Basophils 0.4 % (0.0-1.0); %Eosinophils 0.6 % (0.0-10.0); %Lymphocytes 13.9 % (21.0-51.0); %Monocytes 5.5 % (0.0-10.0); %Neutrophils 79.1 % (42.0-75.0); Hematocrit 20.0 % (36.0-47.0); Hemoglobin 6.3 g/dL (12.0-16.0); Mean Corpuscular Hemoglobin 26.4 pg (27.0-31.0); Mean Corpuscular Volume 83.7 fL (78.0-98.0); Platelet Count 501 10x3/uL (130-400); Red Blood Cell (RBC) Count 2.39 mill/uL (4.20-5.40); White Blood Cell (WBC) Count 8.18 10x3/uL (4.8-10.8)
[2025-03-11 14:57] LABS: ALT (SGPT) 29 U/L (Less than 34); AST (SGOT) 27 U/L (11-34); Albumin 2.5 g/dL (3.1-4.5); Alkaline Phosphatase 196 U/L (40-110); Anion Gap 17 mmol/L (10-20); BUN (Urea Nitrogen) 75 mg/dL (7.0-18.7); Bilirubin, Total 0.1 mg/dL (0.3-1.2); Calc. Creatinine Clearance 0 mL/min (70-130); Calcium 8.9 mg/dL (7.8-10.44); Carbon Dioxide 15 mmol/L (22-29); Chloride 110 mmol/L (98-107); Globulin 5.3 g/dL (2.4-3.5); Glucose 72 mg/dL (70-105); Potassium 5.3 mmol/L (3.5-5.1); Sodium 137 mmol/L (136-145)
[2025-03-11] MEDS ORDERED: Senokot S 8.6-50 MG TAB PO PRN (15:56)
[2025-03-11] MEDS ORDERED: Guaifenesin DM 100-10/5 ML UDCUP PO PRN (15:56)
[2025-03-11] MEDS ORDERED: Melatonin 3 MG TAB PO PRN (15:56)
[2025-03-11] MEDS ORDERED: Ondansetron PF 4 MG/2 ML Vial IVP PRN (15:56)
[2025-03-11] MEDS ORDERED: Glucagon 1 MG/ML KIT IM PRN (16:03)
[2025-03-11] MEDS ORDERED: Dextrose 50% Abboject 50 ML SYRINGE SLOW IVP PRN (16:03)
[2025-03-11 18:20] VITALS: BMI 22.3
[2025-03-11 20:37] LABS: Hematocrit 22.2 % (36.0-47.0); Hemoglobin 6.8 g/dL (12.0-16.0)
[2025-03-11] MEDS: Rosuvastatin 10 MG TAB PO SCH (21:46)
[2025-03-11] MEDS: Gabapentin 300 MG CAP PO SCH (21:47)
[2025-03-11] MEDS: Famotidine/PF 20 mg/2ml Vial SLOW IVP SCH (21:48)
[2025-03-11] MEDS: EPOETIN ALFA-EPBX (ESRD) 10,000 UNITS/ML VIAL SC SCH (22:19)
[2025-03-12] MEDS: Acetaminophen 325 MG TAB PO PRN (02:53)
[2025-03-12 05:07] LABS: #Basophils 0.03 10x3/uL (0.0-0.2); #Eosinophils 0.07 10x3/uL (0.0-0.7); #Monocytes 0.53 10x3/uL (0.11-0.59); #Neutrophils 5.79 10x3/uL (1.40-6.50); %Basophils 0.4 % (0.0-1.0); %Eosinophils 0.9 % (0.0-10.0); %Lymphocytes 13.3 % (21.0-51.0); %Monocytes 7.1 % (0.0-10.0); %Neutrophils 77.2 % (42.0-75.0); Hematocrit 20.4 % (36.0-47.0); Hemoglobin 6.3 g/dL (12.0-16.0); Mean Corpuscular Hemoglobin 25.9 pg (27.0-31.0); Mean Corpuscular Volume 84.0 fL (78.0-98.0); Platelet Count 501 10x3/uL (130-400); Red Blood Cell (RBC) Count 2.43 mill/uL (4.20-5.40); White Blood Cell (WBC) Count 7.50 10x3/uL (4.8-10.8)
[2025-03-12 05:24] LABS: ALT (SGPT) 26 U/L (Less than 34); AST (SGOT) 30 U/L (11-34); Albumin 2.3 g/dL (3.1-4.5); Alkaline Phosphatase 170 U/L (40-110); Anion Gap 16 mmol/L (10-20); BUN (Urea Nitrogen) 80 mg/dL (7.0-18.7); BUN/Creatinine Ratio 14.36; Bilirubin, Total 0.1 mg/dL (0.3-1.2); Calc. Creatinine Clearance 11 mL/min (70-130); Calcium 8.7 mg/dL (7.8-10.44); Carbon Dioxide 14 mmol/L (22-29); Chloride 110 mmol/L (98-107); Globulin 4.9 g/dL (2.4-3.5); Glucose 245 mg/dL (70-105); Potassium 5.2 mmol/L (3.5-5.1); Sodium 135 mmol/L (136-145)
[2025-03-12 05:56] LABS: HBSAB Concentration 496.98 mIU/mL; Hep B Surf Ag NONREACTIVE S/CO (NonReactive)
[2025-03-12 05:58] LABS: Hep C IgG Ab NONREACTIVE S/CO (NonReactive); Hep C Index 0.10 S/CO (0-0.79)
[2025-03-12 06:33] LABS: Hep B Core Total Ab REACTIVE (NonReactive); Hep B Core Total Index 8.82 S/CO (0-0.79)
[2025-03-12] MEDS: BIKTARVY 50-200-25 MG TABLET PO SCH (09:51)
[2025-03-12] MEDS: Ergocalciferol 1.25 MG(50,000 UNITS) CAP PO SCH (09:51)
[2025-03-12] MEDS ORDERED: Tuberculin PPD 0.1 ML SYRINGE (10 TEST VIAL) I-DERMAL SCH (11:15)
[2025-03-12] MEDS: Tuberculin PPD 0.1 ML SYRINGE (10 TEST VIAL) I-DERMAL SCH (11:57)
[2025-03-12] MEDS: hydrALAZINE 20 MG/ML VIAL SLOW IVP PRN (14:02)
[2025-03-12 21:38] LABS: Hematocrit 28.9 % (36.0-47.0); Hemoglobin 9.2 g/dL (12.0-16.0)
[2025-03-12] MEDS: Acetaminophen/Codeine 30-300mg Tablet PO PRN (21:47)
[2025-03-12] MEDS ORDERED: Albuterol 2.5 MG (3 mL) NEB NEB PRN (22:07)
[2025-03-12] MEDS: Heparin 10,000 UNITS/ 10 ML VIAL CATH PRN (23:35)
[2025-03-13] MEDS: Carvedilol 6.25 MG TAB PO SCH ×2 (01:16→08:54)
[2025-03-13] MEDS: NIFEdipine XL 60 MG ER.TAB PO SCH ×2 (01:16→08:55)
[2025-03-13 06:09] LABS: Albumin 2.1 g/dL (3.1-4.5); Anion Gap 13 mmol/L (10-20); BUN (Urea Nitrogen) 46 mg/dL (7.0-18.7); BUN/Creatinine Ratio 11.17; Calc. Creatinine Clearance 15 mL/min (70-130); Calcium 8.4 mg/dL (7.8-10.44); Carbon Dioxide 24 mmol/L (22-29); Chloride 106 mmol/L (98-107); Glucose 143 mg/dL (70-105); Potassium 4.1 mmol/L (3.5-5.1); Sodium 139 mmol/L (136-145)
[2025-03-13] MEDS: EPOETIN ALFA-EPBX (ESRD) 10,000 UNITS/ML VIAL IVP SCH (08:56)
[2025-03-13 09:47] LABS: #Basophils 0.06 10x3/uL (0.0-0.2); #Eosinophils 0.06 10x3/uL (0.0-0.7); #Monocytes 0.56 10x3/uL (0.11-0.59); #Neutrophils 8.49 10x3/uL (1.40-6.50); %Basophils 0.6 % (0.0-1.0); %Eosinophils 0.6 % (0.0-10.0); %Lymphocytes 8.4 % (21.0-51.0); %Monocytes 5.6 % (0.0-10.0); %Neutrophils 84.1 % (42.0-75.0); Hematocrit 27.9 % (36.0-47.0); Hemoglobin 9.0 g/dL (12.0-16.0); Mean Corpuscular Hemoglobin 25.6 pg (27.0-31.0); Mean Corpuscular Volume 79.5 fL (78.0-98.0); Platelet Count 502 10x3/uL (130-400); Red Blood Cell (RBC) Count 3.51 mill/uL (4.20-5.40); White Blood Cell (WBC) Count 10.09 10x3/uL (4.8-10.8)
[2025-03-13 10:03] LABS: ALT (SGPT) 20 U/L (Less than 34); AST (SGOT) 21 U/L (11-34); Albumin 2.4 g/dL (3.1-4.5); Alkaline Phosphatase 176 U/L (40-110); Anion Gap 18 mmol/L (10-20); BUN (Urea Nitrogen) 44 mg/dL (7.0-18.7); Bilirubin, Total 0.2 mg/dL (0.3-1.2); Calc. Creatinine Clearance 14 mL/min (70-130); Calcium 8.8 mg/dL (7.8-10.44); Carbon Dioxide 21 mmol/L (22-29); Chloride 104 mmol/L (98-107); Globulin 5.3 g/dL (2.4-3.5); Glucose 205 mg/dL (70-105); Magnesium 2.3 mg/dL (1.6-2.6); Potassium 4.5 mmol/L (3.5-5.1); Sodium 138 mmol/L (136-145)
[2025-03-14 05:25] LABS: #Basophils 0.04 10x3/uL (0.0-0.2); #Eosinophils 0.06 10x3/uL (0.0-0.7); #Monocytes 0.45 10x3/uL (0.11-0.59); #Neutrophils 6.03 10x3/uL (1.40-6.50); %Basophils 0.5 % (0.0-1.0); %Eosinophils 0.8 % (0.0-10.0); %Lymphocytes 13.4 % (21.0-51.0); %Monocytes 5.9 % (0.0-10.0); %Neutrophils 78.9 % (42.0-75.0); Hematocrit 27.8 % (36.0-47.0); Hemoglobin 8.9 g/dL (12.0-16.0); Mean Corpuscular Hemoglobin 25.9 pg (27.0-31.0); Mean Corpuscular Volume 81.0 fL (78.0-98.0); Platelet Count 443 10x3/uL (130-400); Red Blood Cell (RBC) Count 3.43 mill/uL (4.20-5.40); White Blood Cell (WBC) Count 7.64 10x3/uL (4.8-10.8)
[2025-03-14 05:35] LABS: ALT (SGPT) 15 U/L (Less than 34); AST (SGOT) 15 U/L (11-34); Albumin 2.3 g/dL (3.1-4.5); Alkaline Phosphatase 151 U/L (40-110); Anion Gap 15 mmol/L (10-20); BUN (Urea Nitrogen) 26 mg/dL (7.0-18.7); BUN/Creatinine Ratio 7.51; Bilirubin, Total 0.1 mg/dL (0.3-1.2); Calc. Creatinine Clearance 17 mL/min (70-130); Calcium 8.8 mg/dL (7.8-10.44); Carbon Dioxide 26 mmol/L (22-29); Chloride 100 mmol/L (98-107); Globulin 5.0 g/dL (2.4-3.5); Glucose 190 mg/dL (70-105); Magnesium 2.2 mg/dL (1.6-2.6); Potassium 4.3 mmol/L (3.5-5.1); Sodium 137 mmol/L (136-145)
[2025-03-15 04:55] LABS: #Basophils 0.04 10x3/uL (0.0-0.2); #Eosinophils 0.10 10x3/uL (0.0-0.7); #Monocytes 0.92 10x3/uL (0.11-0.59); #Neutrophils 5.84 10x3/uL (1.40-6.50); %Basophils 0.5 % (0.0-1.0); %Eosinophils 1.2 % (0.0-10.0); %Lymphocytes 14.1 % (21.0-51.0); %Monocytes 11.4 % (0.0-10.0); %Neutrophils 72.2 % (42.0-75.0); Hematocrit 26.4 % (36.0-47.0); Hemoglobin 8.2 g/dL (12.0-16.0); Mean Corpuscular Hemoglobin 25.2 pg (27.0-31.0); Mean Corpuscular Volume 81.2 fL (78.0-98.0); Platelet Count 408 10x3/uL (130-400); Red Blood Cell (RBC) Count 3.25 mill/uL (4.20-5.40); White Blood Cell (WBC) Count 8.09 10x3/uL (4.8-10.8)
[2025-03-15 05:14] LABS: ALT (SGPT) 17 U/L (Less than 34); AST (SGOT) 27 U/L (11-34); Albumin 2.2 g/dL (3.1-4.5); Alkaline Phosphatase 176 U/L (40-110); Anion Gap 16 mmol/L (10-20); BUN (Urea Nitrogen) 36 mg/dL (7.0-18.7); Bilirubin, Total 0.1 mg/dL (0.3-1.2); Calc. Creatinine Clearance 12 mL/min (70-130); Calcium 8.8 mg/dL (7.8-10.44); Carbon Dioxide 25 mmol/L (22-29); Chloride 100 mmol/L (98-107); Globulin 4.5 g/dL (2.4-3.5); Glucose 259 mg/dL (70-105); Magnesium 2.4 mg/dL (1.6-2.6); Potassium 4.3 mmol/L (3.5-5.1); Sodium 137 mmol/L (136-145)
[2025-03-15] MEDS: Mupirocin 1 GM TUBE TP SCH (08:15)
[2025-03-15] MEDS: READ PPD TEST SITE PO SCH (15:37)
[2025-03-15] MEDS ORDERED: fentaNYL PF 100 MCG/2 ML SYRINGE ONE (17:17)
[2025-03-15] MEDS ORDERED: Lidocaine 1% PF 5 ML VIAL ONE (17:17)
[2025-03-15] MEDS ORDERED: Ondansetron PF 4 MG/2 ML Vial ONE (17:17)
[2025-03-15] MEDS ORDERED: Heparin 10,000 UNITS/ 10 ML VIAL ONE (17:21)
[2025-03-15] MEDS ORDERED: CEFAZOLIN 2 GM VIAL ONE (17:36)
[2025-03-15] MEDS ORDERED: PROPOFOL 200 MG/20 ML VIAL ONE (17:48)
[2025-03-15] MEDS: HYDROcodone/Acetaminophen 5/325 mg Tablet PO PRN (20:39)
[2025-03-16 06:07] LABS: #Basophils 0.04 10x3/uL (0.0-0.2); #Eosinophils 0.10 10x3/uL (0.0-0.7); #Monocytes 0.57 10x3/uL (0.11-0.59); #Neutrophils 6.66 10x3/uL (1.40-6.50); %Basophils 0.5 % (0.0-1.0); %Eosinophils 1.2 % (0.0-10.0); %Lymphocytes 12.3 % (21.0-51.0); %Monocytes 6.8 % (0.0-10.0); %Neutrophils 78.8 % (42.0-75.0); Hematocrit 29.4 % (36.0-47.0); Hemoglobin 9.1 g/dL (12.0-16.0); Mean Corpuscular Hemoglobin 25.8 pg (27.0-31.0); Mean Corpuscular Volume 83.3 fL (78.0-98.0); Platelet Count 500 10x3/uL (130-400); Red Blood Cell (RBC) Count 3.53 mill/uL (4.20-5.40); White Blood Cell (WBC) Count 8.44 10x3/uL (4.8-10.8)
[2025-03-16] MEDS: Heparin 10,000 UNITS/ 10 ML VIAL CATH PRN (12:09)
[2025-03-16 15:23] VITALS: BP 121/86; TEMP 97.6
[2025-03-18] MEDS ORDERED: Ergocalciferol 1.25 MG(50,000 UNITS) CAP PO SCH (10:00)
== END 2025-03-16 15:15 | disposition home or self-care (01) | DRG 977 ==
LOC: ERS 13:29 → 2NO 15:51
PROVIDERS: ADMIT Internal Medicine; ATTEND Student in an Organized Health Care Education/Training Program
PROC: 30233N1 Transfusion of Nonautologous Red Blood Cells into Peripheral Vein, Percutaneous Approach (ICD-10-PCS; 2025-03-11)
PROC: 5A1D70Z Performance of Urinary Filtration, Intermittent, Less than 6 Hours Per Day (ICD-10-PCS; 2025-03-12)
PROC: 0JH63XZ Insertion of Tunneled Vascular Access Device into Chest Subcutaneous Tissue and Fascia, Percutaneous Approach (ICD-10-PCS; principal; 2025-03-15)
PROC: 02HV33Z Insertion of Infusion Device into Superior Vena Cava, Percutaneous Approach (ICD-10-PCS; 2025-03-15)
PROC: B5181ZA Fluoroscopy of Superior Vena Cava using Low Osmolar Contrast, Guidance (ICD-10-PCS; 2025-03-15)
PROC: 3E0234Z Introduction of Serum, Toxoid and Vaccine into Muscle, Percutaneous Approach (ICD-10-PCS; 2025-03-15)
DX: D64.9 Anemia, unspecified (principal); B20 Human immunodeficiency virus [HIV] disease; N18.6 End stage renal disease; J96.01 Acute respiratory failure with hypoxia; E87.20 Acidosis, unspecified; I12.0 Hypertensive chronic kidney disease with stage 5 chronic kidney disease or end stage renal disease; E10.9 Type 1 diabetes mellitus without complications; Z88.8 Allergy status to other drugs, medicaments and biological substances; F41.9 Anxiety disorder, unspecified; Z98.890 Other specified postprocedural states; E78.00 Pure hypercholesterolemia, unspecified; Z88.2 Allergy status to sulfonamides; E87.5 Hyperkalemia; E88.09 Other disorders of plasma-protein metabolism, not elsewhere classified; D63.8 Anemia in other chronic diseases classified elsewhere; E87.70 Fluid overload, unspecified; Z79.899 Other long term (current) drug therapy; Z79.82 Long term (current) use of aspirin
CPT/HCPCS: 36415; 36416; 36430; 71045; 80053; 80069; 83735; 85025; 86580; 86704; 86706; 86803; 86850; 86900; 86901; 87340; 90935; 93005; 99285; A6258; C1752; G0257; J0360; J0665; J1308; J1644; J1815; J2405; J2704; J3010; J7070; P9016; Q5105